=== PATIENT | male | born 1960 | race Caucasian/White ===

== ENCOUNTER 2016-07-25 11:13 | Emergency (ER) | payer MEDICAID ==
[~2016-07-25] VITALS: Ht 185.4 cm; Wt 116.3 kg
[~2016-07-25 11:13] MED LIST: ACID1GRA2 PO; ALPR-475 PO; ALPR1TAB2 PO; AMLO5TAB2 PO; AMOX1TAB12 PO; AMOX1TAB64 PO; ASPI-770 PO; ASPI325T4 PO; BUDE10.2 INH; BUPR75TA5 PO; CLON-365 PO; DICY10CA53 PO; ENOX120S5 SQ; HYDR-3138 PO; HYDR-3342 PO; HYDR25TA6 PO; LEVO750T26 PO; LISI2.5T PO; LISI40TA PO; LISI5TAB7 PO; LORA-445 PO; METO-95 PO; METO-99 PO; METO200T3 PO; METR500T4 PO; MULT-26 PO; MULT-412 PO; OMEP-110 PO; OMEP20CA9 PO; ONDA-39 PO; ONDA4TAB7 PO; OXYC10TA32 PO; OXYC10TA6 PO; OXYC20TA42 PO; OXYC5CAP4 PO; OXYC5TAB3 PO; POLY17PO5 PO; PRED10TA PO; PRED20TA PO; PRED5TAB PO; QUET50TA PO; QUET50TA5 PO; RIVA20TA PO; SENN1TAB7 PO; SERT100T PO; SERT50TA PO; SIME80TA PO; TEMA30CA PO; TRAM-28 PO; TRAM50TA2 PO; TRIA10.8 IH; UNKNOWN BP MED; VANC125C2 PO; VENL150C6 PO; WARF10TA6 PO
[2016-07-25 11:38] VITALS: BP 130/87
[2016-07-25] MEDS ORDERED: OXYcodone/APAP 5/325MG TABLET ONE (12:18)
[2016-07-25] MEDS ORDERED: IBUPROFEN 200 MG TABLET ONE (12:19)
[2016-07-25] MEDS ORDERED: OXYcodone/APAP 5/325MG TABLET PO ONE (12:30)
[2016-07-25] MEDS ORDERED: IBUPROFEN 200 MG TABLET PO ONE (12:30)
[2016-07-25] MEDS ORDERED: ALBU8.5H3 PO (13:37)
[2016-07-25] MEDS ORDERED: ONDA4TAB10 PO (13:45)
[2016-07-25] MEDS ORDERED: L.AC1CAP6 PO (13:45)
[2016-07-25] MEDS ORDERED: DULO30CA43 PO (13:45)
[2016-07-25] MEDS ORDERED: OXCA150T PO (13:45)
[2016-07-25] MEDS ORDERED: CLON-365 PO (13:45)
== END 2016-07-25 13:56 | disposition home or self-care (01) ==
LOC: ED 13:11
DX: M17.12 Unilateral primary osteoarthritis, left knee (principal); G89.11 Acute pain due to trauma; M25.562 Pain in left knee; I10 Essential (primary) hypertension; E11.9 Type 2 diabetes mellitus without complications; X58.XXXA Exposure to other specified factors, initial encounter; Y93.89 Activity, other specified; Y99.8 Other external cause status; Y92.009 Unspecified place in unspecified non-institutional (private) residence as the place of occurrence of the external cause
CPT/HCPCS: 29505; 93005

== ENCOUNTER 2016-08-01 12:47 | Inpatient (IN) | payer MEDICAID ==
[~2016-08-01] VITALS: Ht 185.4 cm; Wt 114.8 kg
[~2016-08-01 12:47] MED LIST changes: +ALBU8.5H3 PO; +DULO30CA43 PO; +L.AC1CAP6 PO; +ONDA4TAB10 PO; +OXCA150T PO
[2016-08-01] MEDS ORDERED: ONDANSETRON 2MG/ML, 2ML ONE (13:37)
[2016-08-01] MEDS ORDERED: MORPHINE SULFATE 4 MG/ML, 1ML ONE (13:37)
[2016-08-01] MEDS ORDERED: ASPIRIN 81 MG TABLET CHEW ONE (13:37)
[2016-08-01] MEDS ORDERED: LORazepam 2 MG/ML, 1ML ONE (13:39)
[2016-08-01 14:57] LABS: ASPARTATE AMINO TRANSFERASE 37 U/L (15-37); BLOOD UREA NITROGEN 18 mg/dL (7-18)
[2016-08-01 15:07] LABS: IS PT STATUS REG ER OR PRE ER? YES
[2016-08-01] MEDS ORDERED: OXYC15TA PO (15:47)
[2016-08-01] MEDS ORDERED: TIOT18CA INH (15:47)
[2016-08-01 17:47] VITALS: BP 140/87
[2016-08-01] MEDS ORDERED: RIVA20TA PO (18:31)
[2016-08-01] MEDS ORDERED: LABETALOL 5MG/ML, 20ML IVPush PRN (20:30)
[2016-08-01] MEDS ORDERED: ONDANSETRON ODT 4 MG PO PRN (20:30)
[2016-08-01] MEDS ORDERED: BISACODYL 10 MG SUPP PR PRN (20:30)
[2016-08-01] MEDS ORDERED: DOCUSATE 100 MG CAPSULE PO PRN (20:30)
[2016-08-01] MEDS ORDERED: TRAZODONE 50MG TABLET PO PRN (20:30)
[2016-08-01] MEDS ORDERED: ACETAMINOPHEN 325 MG TABLET PO PRN (20:30)
[2016-08-01] MEDS ORDERED: POLYETHYLENE GLYCOL 17 GM PACKET PO PRN (20:30)
[2016-08-01 20:51] VITALS: BP 137/88
[2016-08-01] MEDS: IPRATROPIUM 0.5 MG/2.5 ML INHA NPPB SCH (21:30)
[2016-08-01] MEDS ORDERED: ALBUTEROL SULFATE 2.5 MG/3 ML NPPB SCH (21:30)
[2016-08-01] MEDS: ALBUTEROL SULFATE 2.5 MG/3 ML NPPB SCH (21:30)
[2016-08-01] MEDS: ASPIRIN 325 MG TABLET PO SCH (22:21)
[2016-08-01] MEDS: SODIUM CHLORIDE 0.9% 1,000 ML IV SCH (22:21)
[2016-08-01] MEDS: OXCARBAZEPINE 150 MG TABLET PO SCH (22:22)
[2016-08-01] MEDS: ATORVASTATIN 80 MG TABLET PO SCH (22:22)
[2016-08-01] MEDS: ALPRazolam 1MG TABLET PO SCH (22:22)
[2016-08-01 22:29] LABS: IS PT STATUS REG ER OR PRE ER? NO
[2016-08-01] MEDS: MORPHINE SULFATE 4 MG/ML, 1ML IVPush PRN (23:33)
[2016-08-02] MEDS ORDERED: TEMAZEPAM 30 MG CAPSULE PO ONE
[2016-08-02 02:45] VITALS: BP 128/88
[2016-08-02] MEDS: ALBUTEROL SULFATE 2.5 MG/3 ML NPPB SCH ×3 (03:30→21:30)
[2016-08-02] MEDS: IPRATROPIUM 0.5 MG/2.5 ML INHA NPPB SCH ×4 (03:30→21:30)
[2016-08-02] MEDS: MORPHINE SULFATE 4 MG/ML, 1ML IVPush PRN ×5 (03:38→21:54)
[2016-08-02 03:47] LABS: BLOOD UREA NITROGEN 27 mg/dL (7-18)
[2016-08-02 03:53] LABS: ASPARTATE AMINO TRANSFERASE 45 U/L (15-37)
[2016-08-02 03:55] LABS: IS PT STATUS REG ER OR PRE ER? NO
[2016-08-02] MEDS: ALPRazolam 1MG TABLET PO SCH ×4 (06:08→21:54)
[2016-08-02] MEDS: ASPIRIN 325 MG TABLET PO SCH (06:08)
[2016-08-02] MEDS: RIVAROXABAN 20 MG TABLET PO SCH (07:52)
[2016-08-02] MEDS: DULOXETINE 30 MG CAPSULE.DR PO SCH (07:52)
[2016-08-02] MEDS: OXCARBAZEPINE 150 MG TABLET PO SCH ×2 (07:52→21:54)
[2016-08-02] MEDS: FLUTICASONE/VILANTEROL 200-25MCG/INH INH SCH (07:53)
[2016-08-02 08:03] VITALS: BP 110/71
[2016-08-02] MEDS ORDERED: REGADENOSON 0.4 MG/5 ML SYRINGE ONE (08:44)
[2016-08-02] MEDS: SODIUM CHLORIDE 0.9% 1,000 ML IV SCH (11:19)
[2016-08-02 11:42] LABS: ASPARTATE AMINO TRANSFERASE 35 U/L (15-37); BLOOD UREA NITROGEN 18 mg/dL (7-18)
[2016-08-02 11:45] LABS: IS PT STATUS REG ER OR PRE ER? NO
[2016-08-02 13:51] VITALS: BP 114/72
[2016-08-02] MEDS ORDERED: KETOROLAC 30 MG/1 ML IVPush PRN (14:00)
[2016-08-02] MEDS: METHOCARBAMOL 500 MG TABLET PO SCH ×2 (16:24→21:54)
[2016-08-02 19:30] VITALS: BP 117/78
[2016-08-02] MEDS: ATORVASTATIN 80 MG TABLET PO SCH (21:53)
[2016-08-03 01:30] VITALS: BP 124/80
[2016-08-03] MEDS: MORPHINE SULFATE 4 MG/ML, 1ML IVPush PRN ×2 (04:20→09:42)
[2016-08-03] MEDS: METHOCARBAMOL 500 MG TABLET PO SCH ×2 (05:57→10:55)
[2016-08-03] MEDS: ALPRazolam 1MG TABLET PO SCH ×2 (05:57→10:55)
[2016-08-03] MEDS: ASPIRIN 325 MG TABLET PO SCH (05:57)
[2016-08-03] MEDS ORDERED: ALBUTEROL SULFATE 2.5 MG/3 ML NPPB PRN (07:00)
[2016-08-03] MEDS ORDERED: IPRATROPIUM 0.5 MG/2.5 ML INHA NPPB SCH (07:00)
[2016-08-03] MEDS ORDERED: ALBUTEROL SULFATE 2.5 MG/3 ML NPPB SCH (07:00)
[2016-08-03 08:42] VITALS: BP 107/67
[2016-08-03] MEDS: OXCARBAZEPINE 150 MG TABLET PO SCH (09:41)
[2016-08-03] MEDS: RIVAROXABAN 20 MG TABLET PO SCH (09:41)
[2016-08-03] MEDS: FLUTICASONE/VILANTEROL 200-25MCG/INH INH SCH (09:41)
[2016-08-03] MEDS: DULOXETINE 30 MG CAPSULE.DR PO SCH (09:41)
[2016-08-03] MEDS ORDERED: METH500T7 PO (11:48)
== END 2016-08-03 15:00 | disposition home or self-care (01) | DRG 206 ==
LOC: ED 12:47 → EDIP 15:16 → 5SO 16:39 → DCLOUNGE 08-03 14:37
PROVIDERS: ADMIT Internal Medicine; ATTEND Internal Medicine
DX: M94.0 Chondrocostal junction syndrome [Tietze] (principal); F42.9 Obsessive-compulsive disorder, unspecified; E78.5 Hyperlipidemia, unspecified; F32.9 Major depressive disorder, single episode, unspecified; I10 Essential (primary) hypertension; I48.0 Paroxysmal atrial fibrillation; J44.9 Chronic obstructive pulmonary disease, unspecified; Z87.891 Personal history of nicotine dependence; Z86.718 Personal history of other venous thrombosis and embolism; Z86.711 Personal history of pulmonary embolism; Z91.010 Allergy to peanuts; F41.9 Anxiety disorder, unspecified; R06.4 Hyperventilation; Z86.19 Personal history of other infectious and parasitic diseases
CPT/HCPCS: 36415; 71010; 78452; 80053; 83690; 83735; 83880; 84439; 84443; 84484; 85025; 85379; 87324; 93005; 93017; 99285; J2785; J7613; A9502; C9898; J7030

== ENCOUNTER 2016-08-06 11:16 | Emergency (ER) | payer MEDICAID ==
[~2016-08-06] VITALS: Ht 185.4 cm; Wt 113.3 kg
[~2016-08-06 11:16] MED LIST changes: +METH500T7 PO; +OXYC15TA PO; +TIOT18CA INH
[2016-08-06] MEDS ORDERED: ONDA-39 PO (11:38)
[2016-08-06] MEDS ORDERED: ALBUTEROL/IPRATROPIUM 2.5MG/0.5MG, 3 ML NPPB ONE (12:00)
[2016-08-06] MEDS ORDERED: ALBUTEROL/IPRATROPIUM 2.5MG/0.5MG, 3 ML ONE (12:03)
[2016-08-06 12:23] LABS: BLOOD UREA NITROGEN 10 mg/dL (7-18)
[2016-08-06 12:30] LABS: IS PT STATUS REG ER OR PRE ER? YES
[2016-08-06] MEDS ORDERED: HYDROcodone/APAP 5/325 TABLET ONE (12:36)
[2016-08-06] MEDS ORDERED: KETOROLAC 30 MG/1 ML ONE (12:36)
[2016-08-06] MEDS ORDERED: HYDROcodone/APAP 10/325 MG TABLET ONE (12:45)
[2016-08-06 12:53] VITALS: BP 139/99
[2016-08-06] MEDS ORDERED: KETOROLAC 30 MG/1 ML IM ONE (13:00)
[2016-08-06] MEDS ORDERED: HYDROcodone/APAP 10/325 MG TABLET PO ONE (13:00)
== END 2016-08-06 13:32 | disposition home or self-care (01) ==
LOC: ED 11:45
DX: J44.1 Chronic obstructive pulmonary disease with (acute) exacerbation (principal); I50.9 Heart failure, unspecified; E11.9 Type 2 diabetes mellitus without complications; F10.20 Alcohol dependence, uncomplicated; F41.9 Anxiety disorder, unspecified; G20 Parkinson's disease; Z86.718 Personal history of other venous thrombosis and embolism; Z87.891 Personal history of nicotine dependence
CPT/HCPCS: 36415; 71010; 80048; 82040; 83880; 84484; 85025; 93005; 96372; 99285; J1885; J7512; J7620

== ENCOUNTER 2016-08-31 11:28 | Emergency (ER) | payer MEDICAID ==
[~2016-08-31] VITALS: Ht 185.4 cm; Wt 116.3 kg
[2016-08-31] MEDS ORDERED: ONDANSETRON 2MG/ML, 2ML IVPush ONE (12:30)
[2016-08-31] MEDS ORDERED: SODIUM CHLORIDE FLUSH 10ML SYR IVF ONE (12:30)
[2016-08-31] MEDS ORDERED: MORPHINE SULFATE 4 MG/ML, 1ML IVPush PRN (12:30)
[2016-08-31] MEDS ORDERED: ONDANSETRON 2MG/ML, 2ML ONE (12:36)
[2016-08-31] MEDS ORDERED: MORPHINE SULFATE 4 MG/ML, 1ML ONE (12:36)
[2016-08-31 12:44] VITALS: BP 131/90
== END 2016-08-31 15:01 | disposition home or self-care (01) ==
LOC: ED 13:21
DX: S13.4XXA Sprain of ligaments of cervical spine, initial encounter (principal); S00.93XA Contusion of unspecified part of head, initial encounter; S23.3XXA Sprain of ligaments of thoracic spine, initial encounter; I10 Essential (primary) hypertension; G20 Parkinson's disease; A04.7 Enterocolitis due to Clostridium difficile; W10.9XXA Fall (on) (from) unspecified stairs and steps, initial encounter; Y93.89 Activity, other specified; Y99.8 Other external cause status; Y92.89 Other specified places as the place of occurrence of the external cause
CPT/HCPCS: 70450; 71010; 72072; 72125; 96374; 96375; 99284; J2405

== ENCOUNTER 2016-09-07 21:21 | Emergency (ER) | payer MEDICAID ==
[~2016-09-07] VITALS: Ht 185.4 cm; Wt 115.2 kg
[2016-09-07] MEDS ORDERED: HYDR-3342 PO (21:49)
[2016-09-07] MEDS ORDERED: LISI-170 PO (21:49)
[2016-09-07] MEDS ORDERED: METO50TA82 PO (21:49)
[2016-09-07] MEDS ORDERED: FLUO20CA19 PO (21:49)
[2016-09-07] MEDS ORDERED: TRAZ50TA18 PO (21:49)
[2016-09-07] MEDS ORDERED: SODIUM CHLORIDE 0.9% 1,000ML IVBOLUS ONE ×2 (22:00→23:30)
[2016-09-07] MEDS ORDERED: ASPIRIN 81 MG TABLET CHEW PO ONE (22:00)
[2016-09-07 22:21] LABS: BLOOD UREA NITROGEN 17 mg/dL (7-18)
[2016-09-07 22:27] LABS: IS PT STATUS REG ER OR PRE ER? YES
[2016-09-07] MEDS ORDERED: MORPHINE SULFATE 4 MG/ML, 1ML ONE (22:54)
[2016-09-07] MEDS ORDERED: MORPHINE SULFATE 4 MG/ML, 1ML IVPush ONE (23:00)
[2016-09-07] MEDS ORDERED: LORazepam 2 MG/ML, 1ML ONE (23:21)
[2016-09-07] MEDS ORDERED: LORazepam 2 MG/ML, 1ML IVPush ONE (23:30)
[2016-09-08 00:36] VITALS: BP 137/93
== END 2016-09-08 00:38 | disposition home or self-care (01) ==
LOC: ED 21:43
DX: R07.89 Other chest pain (principal); A04.7 Enterocolitis due to Clostridium difficile; E11.9 Type 2 diabetes mellitus without complications; I48.91 Unspecified atrial fibrillation; J44.0 Chronic obstructive pulmonary disease with (acute) lower respiratory infection; K70.9 Alcoholic liver disease, unspecified; M19.90 Unspecified osteoarthritis, unspecified site; I11.0 Hypertensive heart disease with heart failure; I50.9 Heart failure, unspecified
CPT/HCPCS: 36415; 71010; 80048; 80307; 82040; 83735; 84443; 84484; 85025; 85379; 93005; 96361; 96374; 96375; 99285; J2060; J7030

== ENCOUNTER 2016-09-10 12:18 | Inpatient (IN) | payer MEDICAID ==
[~2016-09-10] VITALS: Ht 185.4 cm; Wt 112.1 kg
[~2016-09-10 12:18] MED LIST changes: +FLUO20CA19 PO; +LISI-170 PO; +METO50TA82 PO; +TRAZ50TA18 PO
[2016-09-10] MEDS ORDERED: SODIUM CHLORIDE 0.9% 1,000ML IVBOLUS ONE (13:00)
[2016-09-10] MEDS ORDERED: SODIUM CHLORIDE FLUSH 10ML SYR IVF ONE (13:00)
[2016-09-10] MEDS ORDERED: LORazepam 2 MG/ML, 1ML IVPush ONE (13:00)
[2016-09-10] MEDS ORDERED: LORazepam 2 MG/ML, 1ML ONE (13:25)
[2016-09-10 13:32] LABS: BLOOD UREA NITROGEN 6 mg/dL (7-18)
[2016-09-10 13:37] LABS: IS PT STATUS REG ER OR PRE ER? YES
[2016-09-10] MEDS ORDERED: POTASSIUM CHLORIDE 40 MEQ in SODIUM CHLORIDE 0.9% 500 ML IV ONE (14:30)
[2016-09-10] MEDS ORDERED: LISINOPRIL 20 MG TABLET PO ONE (15:30)
[2016-09-10] MEDS ORDERED: RIVAROXABAN 20 MG TABLET PO ONE (15:30)
[2016-09-10] MEDS ORDERED: METOPROLOL TARTRATE 50 MG TABLET PO ONE (15:30)
[2016-09-10] MEDS ORDERED: LISINOPRIL 20 MG TABLET ONE (16:07)
[2016-09-10] MEDS ORDERED: METOPROLOL TARTRATE 50 MG TABLET ONE (16:07)
[2016-09-10] MEDS ORDERED: OXYGEN (16:58)
[2016-09-10] MEDS: ALBUTEROL SULFATE 2.5 MG/3 ML NPPB SCH ×2 (17:00→23:00)
[2016-09-10] MEDS ORDERED: MAGNESIUM SULFATE PMX 2GM/50ML 50 ML IV ONE (17:00)
[2016-09-10] MEDS ORDERED: POTASSIUM CHLORIDE 20 MEQ TAB.ER.PRT PO ONE (17:00)
[2016-09-10] MEDS ORDERED: ONDANSETRON ODT 4 MG PO PRN (17:30)
[2016-09-10] MEDS ORDERED: POLYETHYLENE GLYCOL 17 GM PACKET PO PRN (17:30)
[2016-09-10] MEDS ORDERED: ONDANSETRON 2MG/ML, 2ML IVPush PRN (17:30)
[2016-09-10] MEDS ORDERED: BISACODYL 10 MG SUPP PR PRN (17:30)
[2016-09-10] MEDS ORDERED: DOCUSATE 100 MG CAPSULE PO PRN (17:30)
[2016-09-10 18:29] VITALS: BP 144/94
[2016-09-10 20:38] LABS: IS PT STATUS REG ER OR PRE ER? NO
[2016-09-10] MEDS: FLUTICASONE/VILANTEROL 200-25MCG/INH INH SCH (21:00)
[2016-09-10] MEDS: TRAZODONE 50MG TABLET PO PRN (21:42)
[2016-09-10] MEDS: METHOCARBAMOL 500 MG TABLET PO SCH (21:42)
[2016-09-10] MEDS: ALPRazolam 1MG TABLET PO SCH (21:42)
[2016-09-10] MEDS: TEMAZEPAM 30 MG CAPSULE PO SCH (21:42)
[2016-09-10] MEDS: FLUOXETINE 20 MG CAPSULE PO SCH (21:46)
[2016-09-10] MEDS: OXYcodone IR 5MG TABLET PO PRN (22:01)
[2016-09-11 02:22] VITALS: BP 102/64
[2016-09-11 02:28] LABS: BLOOD UREA NITROGEN 8 mg/dL (7-18)
[2016-09-11 02:33] LABS: IS PT STATUS REG ER OR PRE ER? NO
[2016-09-11] MEDS: METHOCARBAMOL 500 MG TABLET PO SCH ×4 (06:00→20:09)
[2016-09-11] MEDS: FLUTICASONE/VILANTEROL 200-25MCG/INH INH SCH (08:20)
[2016-09-11 08:21] VITALS: BP 105/68
[2016-09-11] MEDS: METOPROLOL TARTRATE 50 MG TABLET PO SCH (08:21)
[2016-09-11] MEDS: LISINOPRIL 20 MG TABLET PO SCH (08:21)
[2016-09-11] MEDS: FLUOXETINE 20 MG CAPSULE PO SCH ×3 (08:22→20:09)
[2016-09-11] MEDS: DULOXETINE 30 MG CAPSULE.DR PO SCH (08:22)
[2016-09-11] MEDS: RIVAROXABAN 20 MG TABLET PO SCH (08:22)
[2016-09-11] MEDS: OXYcodone IR 5MG TABLET PO PRN ×2 (08:41→17:33)
[2016-09-11] MEDS: ALPRazolam 1MG TABLET PO SCH ×3 (08:41→20:09)
[2016-09-11] MEDS: ALBUTEROL SULFATE 2.5 MG/3 ML NPPB SCH ×4 (09:08→21:20)
[2016-09-11] MEDS ORDERED: MAGNESIUM SULFATE PMX 2GM/50ML 50 ML IV ONE (11:00)
[2016-09-11 15:50] VITALS: BP 101/65
[2016-09-11 18:45] VITALS: BP 113/75
[2016-09-11] MEDS: TRAZODONE 50MG TABLET PO PRN (20:10)
[2016-09-11] MEDS: TEMAZEPAM 30 MG CAPSULE PO SCH (20:10)
[2016-09-12 01:07] VITALS: BP 112/79
[2016-09-12] MEDS: OXYcodone IR 5MG TABLET PO PRN ×3 (01:11→23:15)
[2016-09-12] MEDS: ALBUTEROL SULFATE 2.5 MG/3 ML NPPB SCH (05:00)
[2016-09-12] MEDS: METHOCARBAMOL 500 MG TABLET PO SCH ×4 (05:20→20:21)
[2016-09-12 09:15] VITALS: BP 115/78
[2016-09-12] MEDS: LISINOPRIL 20 MG TABLET PO SCH (09:16)
[2016-09-12] MEDS: METOPROLOL TARTRATE 50 MG TABLET PO SCH (09:16)
[2016-09-12] MEDS: FLUOXETINE 20 MG CAPSULE PO SCH ×3 (09:17→20:21)
[2016-09-12] MEDS: RIVAROXABAN 20 MG TABLET PO SCH (09:17)
[2016-09-12] MEDS: ALPRazolam 1MG TABLET PO SCH ×3 (09:17→20:20)
[2016-09-12] MEDS: FLUTICASONE/VILANTEROL 200-25MCG/INH INH SCH (09:17)
[2016-09-12] MEDS: DULOXETINE 30 MG CAPSULE.DR PO SCH (09:17)
[2016-09-12 16:10] VITALS: BP 104/67
[2016-09-12 16:26] VITALS: BP 112/71
[2016-09-12 18:25] VITALS: BP 109/73
[2016-09-12] MEDS: TEMAZEPAM 30 MG CAPSULE PO SCH (20:20)
[2016-09-12] MEDS: TRAZODONE 50MG TABLET PO PRN (20:20)
[2016-09-13 02:02] VITALS: BP 110/70
[2016-09-13] MEDS ORDERED: ALBUTEROL SULFATE 2.5 MG/3 ML NPPB PRN (05:00)
[2016-09-13] MEDS: METHOCARBAMOL 500 MG TABLET PO SCH ×2 (06:00→11:14)
[2016-09-13 08:26] VITALS: BP 111/73
[2016-09-13] MEDS: LISINOPRIL 20 MG TABLET PO SCH ×2 (09:00→09:30)
[2016-09-13] MEDS: METOPROLOL TARTRATE 50 MG TABLET PO SCH (09:00)
[2016-09-13] MEDS: ALPRazolam 1MG TABLET PO SCH (09:30)
[2016-09-13] MEDS: FLUOXETINE 20 MG CAPSULE PO SCH (09:30)
[2016-09-13] MEDS: DULOXETINE 30 MG CAPSULE.DR PO SCH (09:30)
[2016-09-13] MEDS: FLUTICASONE/VILANTEROL 200-25MCG/INH INH SCH (09:30)
[2016-09-13] MEDS: RIVAROXABAN 20 MG TABLET PO SCH (09:30)
[2016-09-13] MEDS: OXYcodone IR 5MG TABLET PO PRN (09:31)
[2016-09-13 15:16] VITALS: BP 106/70
== END 2016-09-13 16:20 | disposition home or self-care (01) | DRG 641 ==
LOC: ED 12:43 → EDIP 16:09 → 4EST 18:02
PROVIDERS: ADMIT Internal Medicine; ATTEND Internal Medicine
DX: R62.7 Adult failure to thrive (principal); J96.11 Chronic respiratory failure with hypoxia; F33.9 Major depressive disorder, recurrent, unspecified; F13.20 Sedative, hypnotic or anxiolytic dependence, uncomplicated; R07.89 Other chest pain; I48.91 Unspecified atrial fibrillation; E78.5 Hyperlipidemia, unspecified; I10 Essential (primary) hypertension; E87.6 Hypokalemia; F41.1 Generalized anxiety disorder; I11.0 Hypertensive heart disease with heart failure; Z91.010 Allergy to peanuts; I50.9 Heart failure, unspecified; Z86.711 Personal history of pulmonary embolism; Z86.718 Personal history of other venous thrombosis and embolism; Z79.01 Long term (current) use of anticoagulants; Z99.81 Dependence on supplemental oxygen; Z87.891 Personal history of nicotine dependence; Z91.14 Patient's other noncompliance with medication regimen; Z90.49 Acquired absence of other specified parts of digestive tract; Z79.899 Other long term (current) drug therapy; J44.9 Chronic obstructive pulmonary disease, unspecified
CPT/HCPCS: 36415; 71010; 80048; 82040; 83735; 83880; 84484; 85025; 93005; 96365; 96375; J3480; Q0162; J2060; J3475; J7040

== ENCOUNTER 2016-12-05 18:55 | Inpatient (IN) | payer MEDICAID ==
[~2016-12-05] VITALS: Ht 185.4 cm; Wt 121.1 kg
[~2016-12-05 18:55] MED LIST changes: -ACID1GRA2 PO; +ACID1GRA3 PO; -ALBU8.5H3 PO; +ALBU8.5H8 PO; +ASPI325T17 PO; -ASPI325T4 PO; -HYDR-3138 PO; +HYDR-3237 PO; -METO200T3 PO; +METO200T5 PO; -METR500T4 PO; +METR500T8 PO; -ONDA-39 PO; +ONDA4TAB12 PO; -OXYC10TA32 PO; +OXYC10TA47 PO; +OXYC5CAP2 PO; -OXYC5CAP4 PO; +OXYGEN; -TRAM-28 PO; +TRAM-47 PO
[2016-12-05] MEDS ORDERED: ASPIRIN 81 MG TABLET CHEW PO ONE (19:30)
[2016-12-05] MEDS ORDERED: SODIUM CHLORIDE FLUSH 10ML SYR IVF ONE ×2 (19:30→20:00)
[2016-12-05 19:41] LABS: HEMATOCRIT 50.6 % (39.2-51.8); WHITE BLOOD COUNT 14.9 x10^3/uL (3.4-10)
[2016-12-05] MEDS ORDERED: BACL20TA PO (19:50)
[2016-12-05] MEDS ORDERED: ATOR40TA78 PO (19:50)
[2016-12-05 19:51] LABS: ASPARTATE AMINO TRANSFERASE 32 U/L (15-37); BLOOD UREA NITROGEN 32 mg/dL (7-18)
[2016-12-05] MEDS ORDERED: ONDANSETRON 2MG/ML, 2ML IVPush ONE (20:00)
[2016-12-05] MEDS ORDERED: SODIUM CHLORIDE 0.9% 1,000ML IVBOLUS ONE ×2 (20:00→23:00)
[2016-12-05] MEDS ORDERED: ALBUTEROL/IPRATROPIUM 2.5MG/0.5MG, 3 ML NPPB ONE (20:00)
[2016-12-05 20:01] LABS: IS PT STATUS REG ER OR PRE ER? YES
[2016-12-05] MEDS ORDERED: ALBUTEROL/IPRATROPIUM 2.5MG/0.5MG, 3 ML ONE (20:04)
[2016-12-05] MEDS ORDERED: MORPHINE SULFATE 4 MG/ML, 1ML ONE ×2 (21:01→21:40)
[2016-12-05] MEDS ORDERED: ONDANSETRON 2MG/ML, 2ML ONE (21:01)
[2016-12-05] MEDS ORDERED: ASPIRIN 81 MG TABLET CHEW ONE (21:01)
[2016-12-05] MEDS: MORPHINE SULFATE 4 MG/ML, 1ML IVPush PRN ×2 (21:05→21:52)
[2016-12-05] MEDS ORDERED: PIPERACILLIN/TAZO/PMX 3.375GM 50 ML IVPB ONE (21:30)
[2016-12-05] MEDS ORDERED: VANCOMYCIN PER PHARMACY MC ONE (21:30)
[2016-12-05] MEDS ORDERED: OMNIPAQUE 350 MG/ML, 100ML BOTTLE ONE (21:33)
[2016-12-05] MEDS ORDERED: PIPERACILLIN/TAZO/PMX 3.375GM 50 ML ONE (21:40)
[2016-12-05] MEDS ORDERED: VANCOMYCIN 1,900 MG in SODIUM CHLORIDE 0.9% 250 ML IV ONE (22:00)
[2016-12-05] MEDS ORDERED: NS + 20MEQ KCL 1,000 ML IV SCH (23:35)
[2016-12-06] MEDS ORDERED: ONDANSETRON 2MG/ML, 2ML IVPush PRN
[2016-12-06] MEDS ORDERED: POLYETHYLENE GLYCOL 17 GM PACKET PO PRN
[2016-12-06] MEDS ORDERED: TEMPLATE NON-FORMULARY MED. (Albuterol Sulfate (Proair Hfa) 2 PUFF) PO SCH
[2016-12-06] MEDS ORDERED: DOCUSATE 100 MG CAPSULE PO PRN
[2016-12-06] MEDS ORDERED: ACETAMINOPHEN 325 MG TABLET PO PRN
[2016-12-06 00:15] VITALS: BP 101/63
[2016-12-06] MEDS: BACLOFEN 10 MG TABLET PO SCH ×2 (00:30→10:07)
[2016-12-06] MEDS: morphine SULFATE 10 MG/ML, 1ML IVPush PRN ×4 (01:22→19:47)
[2016-12-06] MEDS: ALPRazolam 1MG TABLET PO SCH ×5 (02:11→21:00)
[2016-12-06] MEDS: METHOCARBAMOL 500 MG TABLET PO SCH ×5 (02:11→22:18)
[2016-12-06 03:25] VITALS: BP 121/76
[2016-12-06 05:16] LABS: HEMATOCRIT 42.4 % (39.2-51.8); HEMOGLOBIN 14.4 g/dL (13.7-18.0); WHITE BLOOD COUNT 9.4 x10^3/uL (3.4-10)
[2016-12-06 05:41] LABS: ASPARTATE AMINO TRANSFERASE 21 U/L (15-37); BLOOD UREA NITROGEN 27 mg/dL (7-18)
[2016-12-06 08:58] VITALS: BP 112/79
[2016-12-06] MEDS: DULOXETINE 30 MG CAPSULE.DR PO SCH (10:07)
[2016-12-06] MEDS: SENNA/DOCUSATE TABLET PO SCH (10:08)
[2016-12-06] MEDS: RIVAROXABAN 20 MG TABLET PO SCH (10:08)
[2016-12-06] MEDS: FLUOXETINE 20 MG CAPSULE PO SCH ×3 (10:08→22:17)
[2016-12-06] MEDS: METOPROLOL TARTRATE 50 MG TABLET PO SCH (10:08)
[2016-12-06] MEDS: TEMPLATE NON-FORMULARY MED. (Budesonide/Formoterol Fumarate (Symbicort 160-4.5 Mcg Inhaler INH SCH ×3 (10:10→21:00)
[2016-12-06] MEDS: PANTOPRAZOLE 40 MG IV IVPush SCH ×2 (11:19→22:25)
[2016-12-06] MEDS: OXYcodone IR 5MG TABLET PO PRN ×2 (11:20→15:56)
[2016-12-06 12:49] VITALS: BP 91/58
[2016-12-06] MEDS: ATORVASTATIN 40 MG TABLET PO SCH ×2 (21:00)
[2016-12-06 21:18] VITALS: BP 107/72
[2016-12-06] MEDS: TEMAZEPAM 30 MG CAPSULE PO SCH ×2 (22:25)
[2016-12-07] MEDS: OXYcodone IR 5MG TABLET PO PRN ×4 (00:29→22:35)
[2016-12-07 03:46] VITALS: BP 121/85
[2016-12-07] MEDS: morphine SULFATE 10 MG/ML, 1ML IVPush PRN ×3 (04:08→16:48)
[2016-12-07] MEDS: ALBUTEROL SULFATE 2.5 MG/3 ML NPPB PRN (04:52)
[2016-12-07] MEDS: ALPRazolam 1MG TABLET PO SCH ×4 (05:22→20:59)
[2016-12-07] MEDS: METHOCARBAMOL 500 MG TABLET PO SCH ×4 (05:22→20:59)
[2016-12-07 06:28] LABS: BLOOD UREA NITROGEN 11 mg/dL (7-18)
[2016-12-07 07:08] VITALS: BP 116/73
[2016-12-07] MEDS: TEMPLATE NON-FORMULARY MED. (Budesonide/Formoterol Fumarate (Symbicort 160-4.5 Mcg Inhaler INH SCH ×2 (09:00→21:00)
[2016-12-07] MEDS: OMEGA-3/FISH OIL CAPSULE PO SCH (09:03)
[2016-12-07] MEDS: METOPROLOL TARTRATE 50 MG TABLET PO SCH (09:04)
[2016-12-07] MEDS: BACLOFEN 10 MG TABLET PO SCH (09:04)
[2016-12-07] MEDS: FLUOXETINE 20 MG CAPSULE PO SCH ×3 (09:04→20:59)
[2016-12-07] MEDS: RIVAROXABAN 20 MG TABLET PO SCH (09:04)
[2016-12-07] MEDS: SENNA/DOCUSATE TABLET PO SCH (09:04)
[2016-12-07] MEDS: DULOXETINE 30 MG CAPSULE.DR PO SCH (09:05)
[2016-12-07] MEDS ORDERED: MAALOX/HYOSCYAMINE/LIDOCAINE 45 ML BTL PO ONE (09:30)
[2016-12-07 09:36] LABS: IS PT STATUS REG ER OR PRE ER? NO
[2016-12-07] MEDS: PANTOPRAZOLE 40 MG IV IVPush SCH ×2 (10:10→20:59)
[2016-12-07 13:41] VITALS: BP 107/74
[2016-12-07 20:00] VITALS: BP 119/81
[2016-12-07] MEDS: TEMAZEPAM 30 MG CAPSULE PO SCH (20:59)
[2016-12-07] MEDS: ATORVASTATIN 40 MG TABLET PO SCH (20:59)
[2016-12-08] MEDS: morphine SULFATE 10 MG/ML, 1ML IVPush PRN ×4 (00:27→17:27)
[2016-12-08 01:55] VITALS: BP 112/69
[2016-12-08 05:11] LABS: BLOOD UREA NITROGEN 12 mg/dL (7-18)
[2016-12-08 05:15] LABS: ASPARTATE AMINO TRANSFERASE 13 U/L (15-37)
[2016-12-08] MEDS: METHOCARBAMOL 500 MG TABLET PO SCH ×4 (05:22→22:00)
[2016-12-08] MEDS: ALPRazolam 1MG TABLET PO SCH ×3 (05:22→16:10)
[2016-12-08 08:04] VITALS: BP 123/81
[2016-12-08] MEDS: TEMPLATE NON-FORMULARY MED. (Budesonide/Formoterol Fumarate (Symbicort 160-4.5 Mcg Inhaler INH SCH ×2 (09:00→21:00)
[2016-12-08] MEDS: SENNA/DOCUSATE TABLET PO SCH (09:26)
[2016-12-08] MEDS: RIVAROXABAN 20 MG TABLET PO SCH (09:26)
[2016-12-08] MEDS: OMEGA-3/FISH OIL CAPSULE PO SCH (09:26)
[2016-12-08] MEDS: BACLOFEN 10 MG TABLET PO SCH (09:26)
[2016-12-08] MEDS: FLUOXETINE 20 MG CAPSULE PO SCH ×3 (09:26→22:00)
[2016-12-08] MEDS: OXYcodone IR 5MG TABLET PO PRN ×3 (09:26→22:01)
[2016-12-08] MEDS: DULOXETINE 30 MG CAPSULE.DR PO SCH (09:26)
[2016-12-08] MEDS: METOPROLOL TARTRATE 50 MG TABLET PO SCH (09:26)
[2016-12-08] MEDS ORDERED: MAALOX/HYOSCYAMINE/LIDOCAINE 45 ML BTL PO ONE (10:30)
[2016-12-08] MEDS: PANTOPRAZOLE 40 MG IV IVPush SCH (10:38)
[2016-12-08] MEDS: SUCRALFATE 1 GM/10 ML UDC PO SCH ×3 (12:11→21:59)
[2016-12-08 12:26] LABS: HEMATOCRIT 39.4 % (39.2-51.8); HEMOGLOBIN 13.3 g/dL (13.7-18.0); WHITE BLOOD COUNT 9.8 x10^3/uL (3.4-10)
[2016-12-08 12:38] LABS: BLOOD UREA NITROGEN 10 mg/dL (7-18)
[2016-12-08 15:17] VITALS: BP 129/80
[2016-12-08 20:00] VITALS: BP 116/76
[2016-12-08] MEDS: GABAPENTIN 100 MG CAPSULE PO SCH (21:30)
[2016-12-08] MEDS: ATORVASTATIN 40 MG TABLET PO SCH (22:00)
[2016-12-09] MEDS: ALBUTEROL SULFATE 2.5 MG/3 ML NPPB PRN ×2 (03:06→17:51)
[2016-12-09 03:16] VITALS: BP 125/79
[2016-12-09] MEDS: OXYcodone IR 5MG TABLET PO PRN ×2 (04:55→16:24)
[2016-12-09] MEDS: METHOCARBAMOL 500 MG TABLET PO SCH ×4 (04:55→20:30)
[2016-12-09 07:05] VITALS: BP 117/74
[2016-12-09] MEDS: SUCRALFATE 1 GM/10 ML UDC PO SCH ×4 (07:16→20:29)
[2016-12-09] MEDS: RIVAROXABAN 20 MG TABLET PO SCH (08:36)
[2016-12-09] MEDS: SENNA/DOCUSATE TABLET PO SCH (08:36)
[2016-12-09] MEDS: METOPROLOL TARTRATE 50 MG TABLET PO SCH (08:37)
[2016-12-09] MEDS: PANTOPRAZOLE 20MG TABLET PO SCH (08:37)
[2016-12-09] MEDS: GABAPENTIN 100 MG CAPSULE PO SCH ×3 (08:37→20:30)
[2016-12-09] MEDS: FLUOXETINE 20 MG CAPSULE PO SCH (08:37)
[2016-12-09] MEDS: BACLOFEN 10 MG TABLET PO SCH (08:37)
[2016-12-09] MEDS: TEMPLATE NON-FORMULARY MED. (Budesonide/Formoterol Fumarate (Symbicort 160-4.5 Mcg Inhaler INH SCH ×2 (08:38→20:31)
[2016-12-09] MEDS: OMEGA-3/FISH OIL CAPSULE PO SCH (08:42)
[2016-12-09 12:46] VITALS: BP 127/84
[2016-12-09 18:45] VITALS: BP 118/72
[2016-12-09 18:53] LABS: IS PT STATUS REG ER OR PRE ER? NO
[2016-12-09] MEDS: ATORVASTATIN 40 MG TABLET PO SCH (20:30)
[2016-12-09] MEDS: TRAZODONE 50MG TABLET PO PRN (20:35)
[2016-12-10] MEDS: OXYcodone IR 5MG TABLET PO PRN ×4 (01:06→21:18)
[2016-12-10 01:19] LABS: HEMATOCRIT 36.2 % (39.2-51.8); HEMOGLOBIN 12.4 g/dL (13.7-18.0); WHITE BLOOD COUNT 7.3 x10^3/uL (3.4-10)
[2016-12-10 01:22] LABS: BLOOD UREA NITROGEN 17 mg/dL (7-18)
[2016-12-10 01:24] LABS: ASPARTATE AMINO TRANSFERASE 25 U/L (15-37)
[2016-12-10 01:26] LABS: IS PT STATUS REG ER OR PRE ER? NO
[2016-12-10 02:22] VITALS: BP 134/79
[2016-12-10] MEDS: SUCRALFATE 1 GM/10 ML UDC PO SCH ×4 (06:39→20:09)
[2016-12-10] MEDS: METHOCARBAMOL 500 MG TABLET PO SCH ×4 (06:39→20:10)
[2016-12-10] MEDS: OMEGA-3/FISH OIL CAPSULE PO SCH (08:53)
[2016-12-10] MEDS: PANTOPRAZOLE 20MG TABLET PO SCH (08:53)
[2016-12-10] MEDS: FLUOXETINE 20 MG CAPSULE PO SCH (08:54)
[2016-12-10] MEDS: GABAPENTIN 100 MG CAPSULE PO SCH ×3 (08:54→20:09)
[2016-12-10] MEDS: METOPROLOL TARTRATE 50 MG TABLET PO SCH (08:54)
[2016-12-10] MEDS: RIVAROXABAN 20 MG TABLET PO SCH (08:54)
[2016-12-10] MEDS: SENNA/DOCUSATE TABLET PO SCH (08:54)
[2016-12-10] MEDS: BACLOFEN 10 MG TABLET PO SCH (08:55)
[2016-12-10] MEDS: TEMPLATE NON-FORMULARY MED. (Budesonide/Formoterol Fumarate (Symbicort 160-4.5 Mcg Inhaler INH SCH ×2 (08:57→21:00)
[2016-12-10 09:28] VITALS: BP 103/66
[2016-12-10 15:36] VITALS: BP 109/88
[2016-12-10] MEDS ORDERED: POLYETHYLENE GLYCOL 17 GM PACKET PO PRN (19:00)
[2016-12-10] MEDS ORDERED: ONDANSETRON 2MG/ML, 2ML IVPush PRN (19:00)
[2016-12-10] MEDS ORDERED: DOCUSATE 100 MG CAPSULE PO PRN (19:00)
[2016-12-10 19:49] VITALS: BP 118/75
[2016-12-10] MEDS: TRAZODONE 50MG TABLET PO PRN (20:09)
[2016-12-10] MEDS: ATORVASTATIN 40 MG TABLET PO SCH (20:09)
[2016-12-11 02:22] VITALS: BP 117/81
[2016-12-11] MEDS: METHOCARBAMOL 500 MG TABLET PO SCH ×4 (02:51→20:48)
[2016-12-11] MEDS: OXYcodone IR 5MG TABLET PO PRN ×3 (05:32→20:47)
[2016-12-11] MEDS: SUCRALFATE 1 GM/10 ML UDC PO SCH ×4 (07:35→20:47)
[2016-12-11 07:51] VITALS: BP 132/83
[2016-12-11] MEDS: RIVAROXABAN 20 MG TABLET PO SCH (08:14)
[2016-12-11] MEDS: METOPROLOL TARTRATE 50 MG TABLET PO SCH (08:15)
[2016-12-11] MEDS: SENNA/DOCUSATE TABLET PO SCH (08:15)
[2016-12-11] MEDS: FLUOXETINE 20 MG CAPSULE PO SCH (08:15)
[2016-12-11] MEDS: GABAPENTIN 100 MG CAPSULE PO SCH ×3 (08:15→20:48)
[2016-12-11] MEDS: OMEGA-3/FISH OIL CAPSULE PO SCH (08:15)
[2016-12-11] MEDS: TEMPLATE NON-FORMULARY MED. (Budesonide/Formoterol Fumarate (Symbicort 160-4.5 Mcg Inhaler INH SCH ×2 (08:16→20:48)
[2016-12-11] MEDS: BACLOFEN 10 MG TABLET PO SCH (08:16)
[2016-12-11] MEDS: PANTOPRAZOLE 20MG TABLET PO SCH (08:16)
[2016-12-11 15:59] VITALS: BP 161/95
[2016-12-11 19:20] VITALS: BP 123/82
[2016-12-11] MEDS: TRAZODONE 50MG TABLET PO PRN (20:47)
[2016-12-11] MEDS: ATORVASTATIN 40 MG TABLET PO SCH (20:47)
[2016-12-12 01:15] VITALS: BP 126/84
[2016-12-12] MEDS: SUCRALFATE 1 GM/10 ML UDC PO SCH ×4 (06:34→20:55)
[2016-12-12] MEDS: OXYcodone IR 5MG TABLET PO PRN ×3 (06:34→20:55)
[2016-12-12] MEDS: METHOCARBAMOL 500 MG TABLET PO SCH ×4 (06:34→20:56)
[2016-12-12 08:12] VITALS: BP 109/65
[2016-12-12 08:37] VITALS: BP 105/71
[2016-12-12] MEDS: RIVAROXABAN 20 MG TABLET PO SCH (08:43)
[2016-12-12] MEDS: FLUOXETINE 20 MG CAPSULE PO SCH (08:43)
[2016-12-12] MEDS: OMEGA-3/FISH OIL CAPSULE PO SCH (08:43)
[2016-12-12] MEDS: PANTOPRAZOLE 20MG TABLET PO SCH (08:43)
[2016-12-12] MEDS: SENNA/DOCUSATE TABLET PO SCH (08:43)
[2016-12-12] MEDS: GABAPENTIN 100 MG CAPSULE PO SCH ×3 (08:43→20:56)
[2016-12-12] MEDS: BACLOFEN 10 MG TABLET PO SCH (08:44)
[2016-12-12] MEDS: METOPROLOL TARTRATE 50 MG TABLET PO SCH (08:44)
[2016-12-12] MEDS: TEMPLATE NON-FORMULARY MED. (Budesonide/Formoterol Fumarate (Symbicort 160-4.5 Mcg Inhaler INH SCH ×2 (08:46→20:56)
[2016-12-12] MEDS ORDERED: OMEG1CAP6 PO (09:52)
[2016-12-12] MEDS ORDERED: GABA-826 PO (09:52)
[2016-12-12] MEDS ORDERED: SUCR1ORA5 PO (09:52)
[2016-12-12] MEDS ORDERED: FLUO20CA19 PO (09:52)
[2016-12-12 13:50] VITALS: BP 104/67
[2016-12-12] MEDS: ACETAMINOPHEN 325 MG TABLET PO PRN (16:39)
[2016-12-12 18:36] VITALS: BP 118/77
[2016-12-12] MEDS: TRAZODONE 50MG TABLET PO PRN (20:55)
[2016-12-12] MEDS: ATORVASTATIN 40 MG TABLET PO SCH (20:56)
[2016-12-13 01:57] VITALS: BP 115/77
[2016-12-13] MEDS: OXYcodone IR 5MG TABLET PO PRN ×3 (02:47→18:43)
[2016-12-13] MEDS: METHOCARBAMOL 500 MG TABLET PO SCH ×4 (06:44→21:29)
[2016-12-13] MEDS: SUCRALFATE 1 GM/10 ML UDC PO SCH ×4 (06:44→21:29)
[2016-12-13] MEDS: PANTOPRAZOLE 20MG TABLET PO SCH (07:40)
[2016-12-13 07:41] VITALS: BP 111/72
[2016-12-13] MEDS: OMEGA-3/FISH OIL CAPSULE PO SCH (09:10)
[2016-12-13] MEDS: RIVAROXABAN 20 MG TABLET PO SCH (09:10)
[2016-12-13] MEDS: GABAPENTIN 100 MG CAPSULE PO SCH (09:10)
[2016-12-13] MEDS: FLUOXETINE 20 MG CAPSULE PO SCH (09:10)
[2016-12-13] MEDS: BACLOFEN 10 MG TABLET PO SCH (09:10)
[2016-12-13] MEDS: METOPROLOL TARTRATE 50 MG TABLET PO SCH (09:10)
[2016-12-13] MEDS: SENNA/DOCUSATE TABLET PO SCH (09:10)
[2016-12-13] MEDS: TEMPLATE NON-FORMULARY MED. (Budesonide/Formoterol Fumarate (Symbicort 160-4.5 Mcg Inhaler INH SCH ×2 (09:11→21:00)
[2016-12-13] MEDS: ACETAMINOPHEN 325 MG TABLET PO PRN ×3 (10:47→21:36)
[2016-12-13 14:15] VITALS: BP 115/75
[2016-12-13] MEDS: GABAPENTIN 300 MG CAPSULE PO SCH ×2 (15:53→21:36)
[2016-12-13 19:11] VITALS: BP 125/86
[2016-12-13] MEDS: ATORVASTATIN 40 MG TABLET PO SCH (21:29)
[2016-12-14 00:45] VITALS: BP 116/66
[2016-12-14] MEDS: OXYcodone IR 5MG TABLET PO PRN ×3 (03:21→19:43)
[2016-12-14] MEDS: SUCRALFATE 1 GM/10 ML UDC PO SCH ×4 (06:17→19:43)
[2016-12-14] MEDS: METHOCARBAMOL 500 MG TABLET PO SCH (06:17)
[2016-12-14] MEDS: PANTOPRAZOLE 20MG TABLET PO SCH (06:17)
[2016-12-14 06:56] VITALS: BP 110/69
[2016-12-14] MEDS: TEMPLATE NON-FORMULARY MED. (Budesonide/Formoterol Fumarate (Symbicort 160-4.5 Mcg Inhaler INH SCH ×2 (09:29→19:43)
[2016-12-14] MEDS: METOPROLOL TARTRATE 50 MG TABLET PO SCH (09:30)
[2016-12-14] MEDS: BACLOFEN 10 MG TABLET PO SCH (09:30)
[2016-12-14] MEDS: GABAPENTIN 300 MG CAPSULE PO SCH ×3 (09:31→19:43)
[2016-12-14] MEDS: FLUOXETINE 20 MG CAPSULE PO SCH (09:32)
[2016-12-14] MEDS: SENNA/DOCUSATE TABLET PO SCH (09:32)
[2016-12-14] MEDS: RIVAROXABAN 20 MG TABLET PO SCH (09:32)
[2016-12-14 09:34] VITALS: BP 123/83
[2016-12-14] MEDS ORDERED: GABA-826 PO (11:11)
[2016-12-14] MEDS: OMEGA-3/FISH OIL CAPSULE PO SCH (11:15)
[2016-12-14] MEDS: ACETAMINOPHEN 325 MG TABLET PO PRN (11:16)
[2016-12-14 13:01] VITALS: BP 117/75
[2016-12-14 19:31] VITALS: BP 129/78
[2016-12-14] MEDS: ATORVASTATIN 40 MG TABLET PO SCH (19:43)
[2016-12-15 00:15] VITALS: BP 110/72
[2016-12-15] MEDS: ACETAMINOPHEN 325 MG TABLET PO PRN ×2 (04:47→12:55)
[2016-12-15] MEDS: OXYcodone IR 5MG TABLET PO PRN ×2 (04:47→12:55)
[2016-12-15] MEDS: PANTOPRAZOLE 20MG TABLET PO SCH (06:09)
[2016-12-15] MEDS: SUCRALFATE 1 GM/10 ML UDC PO SCH ×2 (06:09→10:42)
[2016-12-15 07:48] VITALS: BP 141/82
[2016-12-15] MEDS: GABAPENTIN 300 MG CAPSULE PO SCH (08:26)
[2016-12-15] MEDS: BACLOFEN 10 MG TABLET PO SCH (08:26)
[2016-12-15] MEDS: METOPROLOL TARTRATE 50 MG TABLET PO SCH (08:26)
[2016-12-15] MEDS: OMEGA-3/FISH OIL CAPSULE PO SCH (08:26)
[2016-12-15] MEDS: SENNA/DOCUSATE TABLET PO SCH (08:27)
[2016-12-15] MEDS: RIVAROXABAN 20 MG TABLET PO SCH (08:27)
[2016-12-15] MEDS: FLUOXETINE 20 MG CAPSULE PO SCH (08:27)
[2016-12-15] MEDS: TEMPLATE NON-FORMULARY MED. (Budesonide/Formoterol Fumarate (Symbicort 160-4.5 Mcg Inhaler INH SCH (08:28)
[2016-12-15 13:22] VITALS: BP 127/83
== END 2016-12-15 14:34 | disposition home or self-care (01) | DRG 871 ==
LOC: ED 20:09 → SUATTDRO 23:26 → EDIP 23:36 → 4NOR 23:50
PROVIDERS: ADMIT Family Medicine; ATTEND Family Medicine
DX: A41.9 Sepsis, unspecified organism (principal); K85.90 Acute pancreatitis without necrosis or infection, unspecified; F33.2 Major depressive disorder, recurrent severe without psychotic features; D68.59 Other primary thrombophilia; E44.1 Mild protein-calorie malnutrition; G20 Parkinson's disease; F13.20 Sedative, hypnotic or anxiolytic dependence, uncomplicated; I48.0 Paroxysmal atrial fibrillation; E86.0 Dehydration; I50.32 Chronic diastolic (congestive) heart failure; J44.1 Chronic obstructive pulmonary disease with (acute) exacerbation; I11.0 Hypertensive heart disease with heart failure; I25.10 Atherosclerotic heart disease of native coronary artery without angina pectoris; F10.10 Alcohol abuse, uncomplicated; K70.9 Alcoholic liver disease, unspecified; R65.20 Severe sepsis without septic shock; G89.29 Other chronic pain; E78.1 Pure hyperglyceridemia; E78.5 Hyperlipidemia, unspecified; F41.1 Generalized anxiety disorder; Z66 Do not resuscitate; K57.30 Diverticulosis of large intestine without perforation or abscess without bleeding; F42.9 Obsessive-compulsive disorder, unspecified; E10.9 Type 1 diabetes mellitus without complications; Z91.19 Patient's noncompliance with other medical treatment and regimen; Z87.891 Personal history of nicotine dependence; Z90.49 Acquired absence of other specified parts of digestive tract; Z86.711 Personal history of pulmonary embolism; Z83.3 Family history of diabetes mellitus; Z82.49 Family history of ischemic heart disease and other diseases of the circulatory system; Z79.899 Other long term (current) drug therapy; Z79.01 Long term (current) use of anticoagulants; Z79.4 Long term (current) use of insulin; Z81.1 Family history of alcohol abuse and dependence; Z86.19 Personal history of other infectious and parasitic diseases; Z86.718 Personal history of other venous thrombosis and embolism; I25.2 Old myocardial infarction; G47.30 Sleep apnea, unspecified; Z87.01 Personal history of pneumonia (recurrent); Z68.35 Body mass index [BMI] 35.0-35.9, adult
CPT/HCPCS: 36415; 71010; 71275; 74177; 80048; 80053; 80061; 81003; 82040; 82330; 82962; 83605; 83690; 83735; 83880; 84145; 84484; 85025; 85610; 85651; 85730; 86677; 87040; 93005; 93306; 94640; 96361; 96365; 96367; 96375; 96376; J2405; J2543; J3370; J3480; J7613; J7620; Q9967; C9113; J2270; J7030; J7050

== ENCOUNTER 2016-12-18 21:30 | Emergency (ER) | payer MEDICAID ==
[~2016-12-18] VITALS: Ht 185.4 cm; Wt 118.0 kg
[~2016-12-18 21:30] MED LIST changes: +ATOR40TA78 PO; +BACL20TA PO; +GABA-826 PO; +OMEG1CAP6 PO; +SUCR1ORA5 PO
[2016-12-18] MEDS ORDERED: ONDANSETRON 2MG/ML, 2ML ONE (22:00)
[2016-12-18] MEDS ORDERED: SODIUM CHLORIDE FLUSH 10ML SYR IVF ONE (22:00)
[2016-12-18] MEDS ORDERED: LORazepam 2 MG/ML, 1ML IVPush ONE (22:00)
[2016-12-18] MEDS ORDERED: ONDANSETRON 2MG/ML, 2ML IVPush ONE (22:00)
[2016-12-18] MEDS ORDERED: LORazepam 2 MG/ML, 1ML ONE (22:00)
[2016-12-18 22:07] LABS: HEMATOCRIT 43.9 % (39.2-51.8); HEMOGLOBIN 15.2 g/dL (13.7-18.0); WHITE BLOOD COUNT 9.9 x10^3/uL (3.4-10)
[2016-12-18 22:15] LABS: ASPARTATE AMINO TRANSFERASE 18 U/L (15-37); BLOOD UREA NITROGEN 12 mg/dL (7-18)
[2016-12-18 23:20] VITALS: BP 148/83
== END 2016-12-18 23:22 | disposition home or self-care (01) ==
LOC: ED 22:33
DX: F41.1 Generalized anxiety disorder (principal); E78.5 Hyperlipidemia, unspecified; E11.9 Type 2 diabetes mellitus without complications; I48.91 Unspecified atrial fibrillation; G20 Parkinson's disease; J44.9 Chronic obstructive pulmonary disease, unspecified; F32.9 Major depressive disorder, single episode, unspecified; I50.9 Heart failure, unspecified; I11.0 Hypertensive heart disease with heart failure; Z87.891 Personal history of nicotine dependence
CPT/HCPCS: 36415; 74176; 80053; 83690; 85025; 96374; 96375; 99285; J2060; J2405

== ENCOUNTER 2016-12-24 17:26 | Emergency (ER) | payer MEDICAID ==
[~2016-12-24] VITALS: Ht 182.9 cm; Wt 165.3 kg
[2016-12-24] MEDS ORDERED: SODIUM CHLORIDE 0.9% 1,000 ML IV ONE (17:42)
[2016-12-24] MEDS ORDERED: morphine SULFATE 10 MG/ML, 1ML ONE ×2 (17:51→21:53)
[2016-12-24] MEDS ORDERED: ONDANSETRON 2MG/ML, 2ML ONE (17:51)
[2016-12-24] MEDS: MORPHINE SULFATE 4 MG/ML, 1ML IVPush PRN ×2 (17:53→21:56)
[2016-12-24] MEDS ORDERED: ONDANSETRON 2MG/ML, 2ML IVPush ONE (18:00)
[2016-12-24] MEDS ORDERED: ASPIRIN 81 MG TABLET CHEW PO ONE (18:00)
[2016-12-24 18:11] LABS: HEMATOCRIT 38.4 % (39.2-51.8); HEMOGLOBIN 13.3 g/dL (13.7-18.0); WHITE BLOOD COUNT 7.5 x10^3/uL (3.4-10)
[2016-12-24 18:15] LABS: ASPARTATE AMINO TRANSFERASE 18 U/L (15-37); BLOOD UREA NITROGEN 16 mg/dL (7-18)
[2016-12-24 18:21] LABS: IS PT STATUS REG ER OR PRE ER? YES
[2016-12-24] MEDS ORDERED: ALBUTEROL/IPRATROPIUM 2.5MG/0.5MG, 3 ML ONE (18:27)
[2016-12-24] MEDS: ALBUTEROL/IPRATROPIUM 2.5MG/0.5MG, 3 ML NPPB SCH ×2 (18:37→19:57)
[2016-12-24] MEDS ORDERED: ALBUTEROL/IPRATROPIUM 2.5MG/0.5MG, 3 ML NPPB ONE (19:30)
[2016-12-24] MEDS ORDERED: ALBUTEROL SULFATE 2.5 MG/3 ML ONE (19:53)
[2016-12-24 23:43] VITALS: BP 165/91
== END 2016-12-24 23:45 | disposition home or self-care (01) ==
LOC: ED 18:28
DX: J44.1 Chronic obstructive pulmonary disease with (acute) exacerbation (principal); I10 Essential (primary) hypertension; E11.9 Type 2 diabetes mellitus without complications; F17.210 Nicotine dependence, cigarettes, uncomplicated; Z99.81 Dependence on supplemental oxygen; G20 Parkinson's disease; F10.230 Alcohol dependence with withdrawal, uncomplicated
CPT/HCPCS: 36415; 71010; 80053; 83690; 83880; 84484; 85025; 93005; 94640; 96361; 96374; 96375; 99285; J2405; J7030; J7512; J7620

== ENCOUNTER 2017-01-13 16:32 | Emergency (ER) | payer MEDICAID ==
[~2017-01-13] VITALS: Ht 185.4 cm; Wt 123.0 kg
[2017-01-13] MEDS ORDERED: MAALOX/HYOSCYAMINE/LIDOCAINE 45 ML BTL ONE (16:50)
[2017-01-13] MEDS ORDERED: ALBUTEROL/IPRATROPIUM 2.5MG/0.5MG, 3 ML ONE (16:56)
[2017-01-13 16:58] LABS: HEMATOCRIT 43.2 % (39.2-51.8); HEMOGLOBIN 14.8 g/dL (13.7-18.0); WHITE BLOOD COUNT 8.9 x10^3/uL (3.4-10)
[2017-01-13] MEDS ORDERED: MAALOX/HYOSCYAMINE/LIDOCAINE 45 ML BTL PO ONE (17:00)
[2017-01-13] MEDS ORDERED: ALBUTEROL/IPRATROPIUM 2.5MG/0.5MG, 3 ML NPPB ONE (17:00)
[2017-01-13] MEDS ORDERED: PLEASE ENTER HEIGHT AND WEIGHT MC SCH (17:00)
[2017-01-13 17:06] LABS: ASPARTATE AMINO TRANSFERASE 20 U/L (15-37); BLOOD UREA NITROGEN 9 mg/dL (7-18)
[2017-01-13 17:10] LABS: IS PT STATUS REG ER OR PRE ER? YES
[2017-01-13 18:20] VITALS: BP 157/94
== END 2017-01-13 18:23 | disposition home or self-care (01) ==
LOC: ED 18:11
DX: J44.1 Chronic obstructive pulmonary disease with (acute) exacerbation (principal); E78.5 Hyperlipidemia, unspecified; F32.9 Major depressive disorder, single episode, unspecified; I11.0 Hypertensive heart disease with heart failure; I50.9 Heart failure, unspecified; G20 Parkinson's disease; I48.91 Unspecified atrial fibrillation; Z87.891 Personal history of nicotine dependence
CPT/HCPCS: 36415; 71010; 80053; 80307; 83690; 83880; 84484; 85025; 93005; 94640; 99285; G0479

== ENCOUNTER 2017-01-21 13:52 | Emergency (ER) | payer MEDICAID ==
[~2017-01-21] VITALS: Ht 182.9 cm; Wt 113.0 kg
[2017-01-21] MEDS ORDERED: ASPIRIN 81 MG TABLET CHEW ONE (14:27)
[2017-01-21] MEDS ORDERED: HYDROmorphone 1 MG/ML, 1ML ONE ×3 (14:28→16:25)
[2017-01-21] MEDS ORDERED: NITROGLYCERIN SINGLE TAB 0.4 MG SL ONE (14:28)
[2017-01-21] MEDS: NITROGLYCERIN SINGLE TAB 0.4 MG SL PRN ×3 (14:29→14:53)
[2017-01-21] MEDS ORDERED: ASPIRIN 81 MG TABLET CHEW PO ONE (14:30)
[2017-01-21] MEDS ORDERED: ASPIRIN 325 MG TABLET PO ONE (14:30)
[2017-01-21] MEDS ORDERED: PLEASE ENTER HEIGHT AND WEIGHT MC SCH (14:30)
[2017-01-21] MEDS ORDERED: SODIUM CHLORIDE FLUSH 10ML SYR IVF ONE (14:30)
[2017-01-21] MEDS: HYDROmorphone 2 MG/ML, 1ML IVPush PRN ×2 (14:31→15:47)
[2017-01-21] MEDS ORDERED: ONDANSETRON 2MG/ML, 2ML ONE (14:33)
[2017-01-21 15:39] LABS: HEMATOCRIT 42.2 % (39.2-51.8); HEMOGLOBIN 14.5 g/dL (13.7-18.0); WHITE BLOOD COUNT 6.4 x10^3/uL (3.4-10)
[2017-01-21 15:50] LABS: ASPARTATE AMINO TRANSFERASE 19 U/L (15-37); BLOOD UREA NITROGEN 10 mg/dL (7-18)
[2017-01-21 15:56] LABS: IS PT STATUS REG ER OR PRE ER? YES
[2017-01-21 16:35] VITALS: BP 126/96
== END 2017-01-21 17:00 | disposition home or self-care (01) ==
LOC: ED 14:29
DX: I11.0 Hypertensive heart disease with heart failure (principal); I50.9 Heart failure, unspecified; J44.9 Chronic obstructive pulmonary disease, unspecified; E78.5 Hyperlipidemia, unspecified; F32.9 Major depressive disorder, single episode, unspecified; F41.9 Anxiety disorder, unspecified; G20 Parkinson's disease; I48.91 Unspecified atrial fibrillation; Z87.891 Personal history of nicotine dependence; Z90.49 Acquired absence of other specified parts of digestive tract; M19.90 Unspecified osteoarthritis, unspecified site
CPT/HCPCS: 36415; 71010; 80053; 83880; 84484; 85025; 85610; 85730; 93005; 96374; 96376; 99285; J1170

== ENCOUNTER 2017-01-30 15:25 | Emergency (ER) | payer MEDICAID ==
[~2017-01-30] VITALS: Ht 185.4 cm; Wt 122.5 kg
[2017-01-30] MEDS ORDERED: SODIUM CHLORIDE 0.9% 1,000 ML IV ONE (16:28)
[2017-01-30] MEDS ORDERED: SODIUM CHLORIDE FLUSH 10ML SYR IVF ONE (16:30)
[2017-01-30] MEDS ORDERED: ONDANSETRON 2MG/ML, 2ML IVPush ONE (16:30)
[2017-01-30] MEDS ORDERED: HYDROmorphone 1 MG/ML, 1ML ONE ×2 (16:50→19:56)
[2017-01-30] MEDS ORDERED: ONDANSETRON 2MG/ML, 2ML ONE (16:51)
[2017-01-30 16:54] LABS: HEMATOCRIT 42.7 % (39.2-51.8); HEMOGLOBIN 14.6 g/dL (13.7-18.0); WHITE BLOOD COUNT 7.9 x10^3/uL (3.4-10)
[2017-01-30] MEDS: HYDROmorphone 1 MG/ML, 1ML IVPush PRN ×2 (16:57→20:08)
[2017-01-30 17:04] LABS: ASPARTATE AMINO TRANSFERASE 22 U/L (15-37); BLOOD UREA NITROGEN 13 mg/dL (7-18)
[2017-01-30] MEDS ORDERED: LORazepam 2 MG/ML, 1ML ONE (18:20)
[2017-01-30] MEDS ORDERED: LORazepam 2 MG/ML, 1ML IVPush ONE (18:30)
[2017-01-30] MEDS ORDERED: OMNIPAQUE 350 MG/ML, 100ML BOTTLE ONE (19:26)
[2017-01-30 20:56] VITALS: BP 199/106
== END 2017-01-30 20:57 | disposition home or self-care (01) ==
LOC: ED 19:04
DX: G89.29 Other chronic pain (principal); R10.84 Generalized abdominal pain; R19.7 Diarrhea, unspecified; R11.2 Nausea with vomiting, unspecified; E11.9 Type 2 diabetes mellitus without complications; E78.5 Hyperlipidemia, unspecified; F32.9 Major depressive disorder, single episode, unspecified; F41.9 Anxiety disorder, unspecified; I10 Essential (primary) hypertension; J44.9 Chronic obstructive pulmonary disease, unspecified; Z87.891 Personal history of nicotine dependence; Z90.49 Acquired absence of other specified parts of digestive tract
CPT/HCPCS: 36415; 74177; 80053; 81001; 83690; 85025; 93005; 96361; 96374; 96375; 96376; 99285; J1170; J2060; J2405; J7030; Q9967

== ENCOUNTER 2017-03-02 13:56 | Emergency (ER) | payer MEDICAID ==
[~2017-03-02] VITALS: Ht 188 cm; Wt 135.5 kg
[2017-03-02] MEDS ORDERED: ONDANSETRON 2MG/ML, 2ML IVPush ONE ×2 (14:30)
[2017-03-02] MEDS ORDERED: SODIUM CHLORIDE FLUSH 10ML SYR IVF ONE (14:30)
[2017-03-02] MEDS ORDERED: ASPIRIN 81 MG TABLET CHEW PO ONE (14:30)
[2017-03-02] MEDS ORDERED: SODIUM CHLORIDE 0.9% 1,000ML IVBOLUS ONE (14:30)
[2017-03-02] MEDS ORDERED: HYDROmorphone 2 MG/ML, 1ML ONE ×4 (14:34→15:38)
[2017-03-02] MEDS ORDERED: ONDANSETRON 2MG/ML, 2ML ONE (14:34)
[2017-03-02] MEDS: HYDROmorphone 1 MG/ML, 1ML IVPush PRN ×2 (14:50→15:40)
[2017-03-02 15:10] LABS: BASOPHILS # (AUTO) 0.01 x10^3/uL (0-0.1); BASOPHILS % (AUTO) 0 % (0-1); EOSINOPHILS # (AUTO) 0.08 x10^3/uL (0-0.4); EOSINOPHILS % (AUTO) 1 % (1-7); LYMPHOCYTES # (AUTO) 1.93 x10^3/uL (1-3.4); LYMPHOCYTES % (AUTO) 14 % (22-44); MD NO; MEAN CORPUSCULAR HEMOGLOBIN 32.3 pg (27.5-34.5); MEAN CORPUSCULAR HGB CONC 33.9 g/dL (33.2-36.2); MEAN CORPUSCULAR VOLUME 95.2 fL (81-97); MEAN PLATELET VOLUME 8.2 fL (7.4-10.4); MONOCYTES % (AUTO) 3 % (2-9); NEUTROPHILS # (AUTO) 11.26 x10^3/uL (1.8-6.8); NEUTROPHILS % (AUTO) 82 % (42-75); PLATELET COUNT 243 x10^3/uL (130-400); RED BLOOD COUNT 4.39 x10^6/uL (4.38-5.82); RED CELL DISTRIBUTION WIDTH 14.4 % (9.4-14.8)
[2017-03-02 15:20] LABS: ALBUMIN 3.7 g/dL (3.4-5.0); ANION GAP 12 mmol/L (5-15); CALCIUM 8.7 mg/dL (8.5-10.1); CHLORIDE 104 mmol/L (98-107)
[2017-03-02 15:28] LABS: ALANINE AMINOTRANSFERASE 92 U/L (12-78); ALKALINE PHOSPHATASE 55 U/L (45-117); BILIRUBIN,TOTAL 0.3 mg/dL (0.2-1.0); CREATININE 1.11 mg/dL (0.7-1.3); TOTAL PROTEIN 7.4 g/dL (6.4-8.2); TROPONIN I < 0.015 ng/mL (0.000-0.045)
[2017-03-02] MEDS ORDERED: OMNIPAQUE 350 MG/ML, 150 ML BOTTLE ONE (16:41)
[2017-03-02 17:58] LABS: MICROSCOPIC NOT IND
[2017-03-02 18:00] LABS: CULTURE INDICATED? NO
[2017-03-02] MEDS ORDERED: NAPROXEN 500 MG TABLET PO ONE (18:00)
[2017-03-02 18:30] VITALS: BP 108/61
== END 2017-03-02 18:45 | disposition home or self-care (01) ==
LOC: ED 14:40
DX: R10.31 Right lower quadrant pain (principal); R19.7 Diarrhea, unspecified; J44.9 Chronic obstructive pulmonary disease, unspecified; E78.5 Hyperlipidemia, unspecified; E11.9 Type 2 diabetes mellitus without complications; I11.9 Hypertensive heart disease without heart failure; Z86.711 Personal history of pulmonary embolism; G20 Parkinson's disease
CPT/HCPCS: 36415; 71045; 74177; 80053; 81003; 83690; 84484; 85025; 93005; 96361; 96374; 96375; 96376; 99285; J1170; J2405; J7030; Q9967

== ENCOUNTER 2017-03-05 11:59 | Emergency (ER) | payer MEDICAID ==
[~2017-03-05] VITALS: Ht 188 cm; Wt 122.0 kg
[2017-03-05] MEDS ORDERED: SODIUM CHLORIDE FLUSH 10ML SYR IVF ONE (13:00)
[2017-03-05] MEDS ORDERED: ASPIRIN 81 MG TABLET CHEW PO ONE (13:00)
[2017-03-05] MEDS ORDERED: SODIUM CHLORIDE 0.9% 1,000ML IVBOLUS ONE (13:00)
[2017-03-05 13:44] LABS: BASOPHILS # (AUTO) 0.01 x10^3/uL (0-0.1); BASOPHILS % (AUTO) 0 % (0-1); EOSINOPHILS % (AUTO) 2 % (1-7); LYMPHOCYTES # (AUTO) 0.92 x10^3/uL (1-3.4); LYMPHOCYTES % (AUTO) 8 % (22-44); MD NO; MEAN CORPUSCULAR HEMOGLOBIN 31.8 pg (27.5-34.5); MEAN CORPUSCULAR HGB CONC 33.8 g/dL (33.2-36.2); MEAN CORPUSCULAR VOLUME 94.2 fL (81-97); MEAN PLATELET VOLUME 7.9 fL (7.4-10.4); MONOCYTES # (AUTO) 0.63 x10^3/uL (0.2-0.8); MONOCYTES % (AUTO) 6 % (2-9); NEUTROPHILS # (AUTO) 9.74 x10^3/uL (1.8-6.8); NEUTROPHILS % (AUTO) 85 % (42-75); PLATELET COUNT 207 x10^3/uL (130-400); RED BLOOD COUNT 4.29 x10^6/uL (4.38-5.82); RED CELL DISTRIBUTION WIDTH 13.8 % (9.4-14.8)
[2017-03-05 13:54] LABS: ALANINE AMINOTRANSFERASE 72 U/L (12-78); ALBUMIN 3.7 g/dL (3.4-5.0); ANION GAP 8 mmol/L (5-15); CALCIUM 8.1 mg/dL (8.5-10.1); CHLORIDE 101 mmol/L (98-107); CREATININE 0.73 mg/dL (0.7-1.3); D-DIMER 0.38 ug/mlFEU (0.00-0.52); INTERNATIONAL NORMALIZED RATIO 1.02 (0.93-1.1); PROTHROMBIN TIME 10.6 Seconds (9.6-11.5)
[2017-03-05 13:58] LABS: ALKALINE PHOSPHATASE 65 U/L (45-117); BILIRUBIN,TOTAL 0.6 mg/dL (0.2-1.0); TOTAL PROTEIN 6.9 g/dL (6.4-8.2); TROPONIN I < 0.015 ng/mL (0.000-0.045)
[2017-03-05] MEDS ORDERED: METOPROLOL 1 MG/ML, 5ML ONE (14:04)
[2017-03-05] MEDS ORDERED: METOPROLOL 1 MG/ML, 5ML IVPush ONE (14:30)
[2017-03-05 14:53] VITALS: BP 150/95
[2017-03-05] MEDS ORDERED: MORPHINE SULFATE 4 MG/ML, 1ML ONE (15:17)
[2017-03-05] MEDS ORDERED: ONDANSETRON 2MG/ML, 2ML ONE (15:17)
[2017-03-05] MEDS ORDERED: MORPHINE SULFATE 4 MG/ML, 1ML IVPush ONE (15:30)
[2017-03-05] MEDS ORDERED: ONDANSETRON 2MG/ML, 2ML IVPush ONE (15:30)
== END 2017-03-05 15:43 | disposition home or self-care (01) ==
LOC: ED 15:37
DX: R07.89 Other chest pain (principal); E78.5 Hyperlipidemia, unspecified; G20 Parkinson's disease; I48.91 Unspecified atrial fibrillation; J44.9 Chronic obstructive pulmonary disease, unspecified; M19.90 Unspecified osteoarthritis, unspecified site; Z87.891 Personal history of nicotine dependence; Z90.49 Acquired absence of other specified parts of digestive tract; Z79.899 Other long term (current) drug therapy
CPT/HCPCS: 36415; 71045; 80053; 80307; 84484; 85025; 85379; 85610; 85730; 93005; 96361; 96374; 96375; 99285; J2405; J7030; G0479

== ENCOUNTER 2017-03-16 22:17 | Emergency (ER) | payer MEDICAID ==
[~2017-03-16] VITALS: Ht 188 cm; Wt 122.0 kg
[2017-03-16] MEDS ORDERED: methylPREDNISolone SOD SUCC 125 MG/2 ML ONE (22:39)
[2017-03-16] MEDS ORDERED: ONDANSETRON 2MG/ML, 2ML ONE (22:39)
[2017-03-16] MEDS ORDERED: MORPHINE SULFATE 4 MG/ML, 1ML ONE (22:39)
[2017-03-16] MEDS: MORPHINE SULFATE 4 MG/ML, 1ML IVPush PRN (22:46)
[2017-03-16 22:47] LABS: BASOPHILS # (AUTO) 0.01 x10^3/uL (0-0.1); BASOPHILS % (AUTO) 0 % (0-1); EOSINOPHILS # (AUTO) 0.02 x10^3/uL (0-0.4); EOSINOPHILS % (AUTO) 0 % (1-7); LYMPHOCYTES # (AUTO) 1.18 x10^3/uL (1-3.4); LYMPHOCYTES % (AUTO) 11 % (22-44); MD NO; MEAN CORPUSCULAR HEMOGLOBIN 31.5 pg (27.5-34.5); MEAN CORPUSCULAR HGB CONC 32.8 g/dL (33.2-36.2); MEAN CORPUSCULAR VOLUME 95.8 fL (81-97); MEAN PLATELET VOLUME 7.8 fL (7.4-10.4); MONOCYTES % (AUTO) 1 % (2-9); NEUTROPHILS # (AUTO) 9.64 x10^3/uL (1.8-6.8); NEUTROPHILS % (AUTO) 88 % (42-75); PLATELET COUNT 361 x10^3/uL (130-400); RED BLOOD COUNT 4.43 x10^6/uL (4.38-5.82); RED CELL DISTRIBUTION WIDTH 14.4 % (9.4-14.8)
[2017-03-16] MEDS ORDERED: ALBUTEROL/IPRATROPIUM 2.5MG/0.5MG, 3 ML ONE (22:55)
[2017-03-16 22:58] LABS: ALANINE AMINOTRANSFERASE 46 U/L (12-78); ALBUMIN 3.1 g/dL (3.4-5.0); ANION GAP 11 mmol/L (5-15); CALCIUM 8.5 mg/dL (8.5-10.1); CHLORIDE 100 mmol/L (98-107); CREATININE 1.23 mg/dL (0.7-1.3)
[2017-03-16] MEDS ORDERED: ONDANSETRON 2MG/ML, 2ML IVP ONE (23:00)
[2017-03-16] MEDS ORDERED: ALBUTEROL 0.5%, 20ML NPPB SCH (23:00)
[2017-03-16] MEDS ORDERED: methylPREDNISolone SOD SUCC 125 MG/2 ML IVP ONE (23:00)
[2017-03-16] MEDS ORDERED: SODIUM CHLORIDE 0.9% 1,000ML IVBOLUS ONE (23:00)
[2017-03-16 23:02] LABS: ALKALINE PHOSPHATASE 69 U/L (45-117); BILIRUBIN,TOTAL 0.2 mg/dL (0.2-1.0); TOTAL PROTEIN 7.4 g/dL (6.4-8.2); TROPONIN I < 0.015 ng/mL (0.000-0.045)
[2017-03-17] MEDS ORDERED: MORPHINE SULFATE 4 MG/ML, 1ML ONE (01:37)
[2017-03-17] MEDS: MORPHINE SULFATE 4 MG/ML, 1ML IVPush PRN (01:41)
[2017-03-17 01:42] VITALS: BP 140/79
== END 2017-03-17 02:09 | disposition home or self-care (01) ==
LOC: ED 22:36
DX: R07.89 Other chest pain (principal); J44.1 Chronic obstructive pulmonary disease with (acute) exacerbation; I48.91 Unspecified atrial fibrillation; I10 Essential (primary) hypertension; E11.9 Type 2 diabetes mellitus without complications; G20 Parkinson's disease; I50.9 Heart failure, unspecified; M19.90 Unspecified osteoarthritis, unspecified site
CPT/HCPCS: 36415; 71045; 80053; 80307; 84484; 85025; 93005; 94640; 96361; 96374; 96375; 96376; 99285; J2405; J2930; J7030

== ENCOUNTER 2017-03-17 20:33 | Observation (INO) | payer MEDICAID ==
[~2017-03-17] VITALS: Ht 188 cm; Wt 125.5 kg
[~2017-03-17 20:33] MED LIST changes: +METO200T47 PO; -METO200T5 PO; -SERT100T PO; +SERT20OR PO
[2017-03-17] MEDS ORDERED: ALBUTEROL SULFATE 2.5 MG/3 ML NPPB ONE ×2 (21:30→23:00)
[2017-03-17] MEDS ORDERED: ASPIRIN 81 MG TABLET CHEW PO ONE (21:30)
[2017-03-17] MEDS ORDERED: ALBUTEROL/IPRATROPIUM 2.5MG/0.5MG, 3 ML ONE ×2 (21:30→22:53)
[2017-03-17] MEDS ORDERED: ALBUTEROL/IPRATROPIUM 2.5MG/0.5MG, 3 ML NPPB ONE (21:30)
[2017-03-17] MEDS: ACETAMINOPHEN 325 MG TABLET PO ONE ×2 (21:30→21:35)
[2017-03-17] MEDS ORDERED: ASPIRIN 81 MG TABLET CHEW ONE (21:33)
[2017-03-17] MEDS ORDERED: ACETAMINOPHEN 325 MG TABLET ONE (21:33)
[2017-03-17 21:48] LABS: INTERNATIONAL NORMALIZED RATIO 1.19 (0.93-1.1); PROTHROMBIN TIME 12.3 Seconds (9.6-11.5)
[2017-03-17 21:51] LABS: ALANINE AMINOTRANSFERASE 38 U/L (12-78); ALBUMIN 3.2 g/dL (3.4-5.0); ANION GAP 10 mmol/L (5-15); BASOPHILS # (AUTO) 0.04 x10^3/uL (0-0.1); BASOPHILS % (AUTO) 0 % (0-1); CALCIUM 7.9 mg/dL (8.5-10.1); CHLORIDE 104 mmol/L (98-107); CREATININE 1.17 mg/dL (0.7-1.3); EOSINOPHILS # (AUTO) 0.02 x10^3/uL (0-0.4); EOSINOPHILS % (AUTO) 0 % (1-7); LYMPHOCYTES # (AUTO) 1.19 x10^3/uL (1-3.4); LYMPHOCYTES % (AUTO) 8 % (22-44); MD NO; MEAN CORPUSCULAR HEMOGLOBIN 31.8 pg (27.5-34.5); MEAN CORPUSCULAR HGB CONC 33.5 g/dL (33.2-36.2); MEAN CORPUSCULAR VOLUME 94.9 fL (81-97); MEAN PLATELET VOLUME 7.7 fL (7.4-10.4); MONOCYTES # (AUTO) 0.31 x10^3/uL (0.2-0.8); MONOCYTES % (AUTO) 2 % (2-9); NEUTROPHILS # (AUTO) 13.29 x10^3/uL (1.8-6.8); NEUTROPHILS % (AUTO) 90 % (42-75); PLATELET COUNT 333 x10^3/uL (130-400); RED BLOOD COUNT 3.95 x10^6/uL (4.38-5.82); RED CELL DISTRIBUTION WIDTH 14.4 % (9.4-14.8)
[2017-03-17 21:55] LABS: ALKALINE PHOSPHATASE 64 U/L (45-117); BILIRUBIN,TOTAL 0.2 mg/dL (0.2-1.0); TOTAL PROTEIN 6.8 g/dL (6.4-8.2); TROPONIN I < 0.015 ng/mL (0.000-0.045)
[2017-03-17] MEDS ORDERED: KETOROLAC 30 MG/1 ML ONE (22:56)
[2017-03-17] MEDS ORDERED: methylPREDNISolone SOD SUCC 125 MG/2 ML ONE (22:56)
[2017-03-17] MEDS ORDERED: GUAIFENESIN/DM 200-20MG, 10ML UDC PO PRN (23:00)
[2017-03-17] MEDS ORDERED: SODIUM CHLORIDE 0.9%, 500ML IVBOLUS ONE (23:00)
[2017-03-17] MEDS ORDERED: LACTATED RINGERS 1,000 ML IV SCH (23:00)
[2017-03-17] MEDS ORDERED: ONDANSETRON 2MG/ML, 2ML IVPush PRN (23:00)
[2017-03-17] MEDS ORDERED: AZITHROMYCIN 500 MG in SODIUM CHLORIDE 0.9% 250 ML IV ONE (23:00)
[2017-03-17] MEDS ORDERED: KETOROLAC 30 MG/1 ML IVPush ONE (23:00)
[2017-03-17] MEDS ORDERED: POLYETHYLENE GLYCOL 17 GM PACKET PO PRN (23:00)
[2017-03-17] MEDS ORDERED: methylPREDNISolone SOD SUCC 125 MG/2 ML IVPush SCH (23:00)
[2017-03-18 00:23] VITALS: BP 123/79
[2017-03-18 02:09] VITALS: BP 134/91
[2017-03-18] MEDS: methylPREDNISolone SOD SUCC 125 MG/2 ML IVPush SCH ×4 (04:55→22:39)
[2017-03-18 05:38] LABS: BASOPHILS # (AUTO) 0.03 x10^3/uL (0-0.1); BASOPHILS % (AUTO) 0 % (0-1); EOSINOPHILS # (AUTO) 0.01 x10^3/uL (0-0.4); EOSINOPHILS % (AUTO) 0 % (1-7); LYMPHOCYTES # (AUTO) 0.84 x10^3/uL (1-3.4); LYMPHOCYTES % (AUTO) 7 % (22-44); MD NO; MEAN CORPUSCULAR HEMOGLOBIN 31.9 pg (27.5-34.5); MEAN CORPUSCULAR HGB CONC 33.5 g/dL (33.2-36.2); MEAN PLATELET VOLUME 7.8 fL (7.4-10.4); MONOCYTES # (AUTO) 0.08 x10^3/uL (0.2-0.8); MONOCYTES % (AUTO) 1 % (2-9); NEUTROPHILS # (AUTO) 10.79 x10^3/uL (1.8-6.8); NEUTROPHILS % (AUTO) 92 % (42-75); PLATELET COUNT 267 x10^3/uL (130-400); RED BLOOD COUNT 3.88 x10^6/uL (4.38-5.82); RED CELL DISTRIBUTION WIDTH 14.4 % (9.4-14.8)
[2017-03-18 05:48] LABS: CHLORIDE 103 mmol/L (98-107)
[2017-03-18 06:03] LABS: ALANINE AMINOTRANSFERASE 40 U/L (12-78); ALBUMIN 3.1 g/dL (3.4-5.0); ALKALINE PHOSPHATASE 61 U/L (45-117); ANION GAP 4 mmol/L (5-15); BILIRUBIN,TOTAL 0.4 mg/dL (0.2-1.0); CREATININE 1.16 mg/dL (0.7-1.3); TOTAL PROTEIN 6.7 g/dL (6.4-8.2)
[2017-03-18 06:55] VITALS: BP 119/77
[2017-03-18] MEDS ORDERED: ALBUTEROL/IPRATROPIUM 2.5MG/0.5MG, 3 ML NPPB SCH (07:00)
[2017-03-18] MEDS ORDERED: FLUOXETINE HCL 20 MG CAPSULE ONE (07:44)
[2017-03-18] MEDS ORDERED: RIVAROXABAN 20 MG TABLET ONE (07:45)
[2017-03-18] MEDS ORDERED: GABAPENTIN 300 MG CAPSULE ONE (07:45)
[2017-03-18] MEDS ORDERED: METOPROLOL TARTRATE 50 MG TABLET ONE (07:45)
[2017-03-18] MEDS: GABAPENTIN 300 MG CAPSULE PO SCH ×3 (07:54→21:33)
[2017-03-18] MEDS: RIVAROXABAN 20 MG TABLET PO SCH (07:54)
[2017-03-18] MEDS: METOPROLOL TARTRATE 50 MG TABLET PO SCH (07:54)
[2017-03-18] MEDS: FLUOXETINE HCL 20 MG CAPSULE PO SCH (07:55)
[2017-03-18] MEDS: morphine SULFATE 10 MG/ML, 1ML IVPush PRN ×2 (09:51→13:27)
[2017-03-18] MEDS: ALBUTEROL/IPRATROPIUM 2.5MG/0.5MG, 3 ML NPPB SCH ×4 (11:10→22:26)
[2017-03-18 12:25] VITALS: BP 146/82
[2017-03-18 18:27] VITALS: BP 157/97
[2017-03-18] MEDS: INSULIN REGULAR 100 UNITS/ML, 3ML VIAL SQ-INSULIN SCH ×2 (19:56→23:45)
[2017-03-18] MEDS: ACETAMINOPHEN 325 MG TABLET PO PRN (20:39)
[2017-03-18] MEDS: GUAIFENESIN ER 600 MG TABLET PO SCH (21:00)
[2017-03-18] MEDS: ATORVASTATIN 40 MG TABLET PO SCH (21:33)
[2017-03-18] MEDS: TRAZODONE 50MG TABLET PO PRN ×2 (21:33→22:39)
[2017-03-19 02:05] VITALS: BP 124/68
[2017-03-19] MEDS: ALBUTEROL/IPRATROPIUM 2.5MG/0.5MG, 3 ML NPPB SCH ×3 (02:50→12:00)
[2017-03-19] MEDS: methylPREDNISolone SOD SUCC 125 MG/2 ML IVPush SCH ×3 (04:20→16:57)
[2017-03-19 05:36] LABS: BASOPHILS # (AUTO) 0.08 x10^3/uL (0-0.1); BASOPHILS % (AUTO) 1 % (0-1); EOSINOPHILS % (AUTO) 0 % (1-7); LYMPHOCYTES # (AUTO) 0.75 x10^3/uL (1-3.4); LYMPHOCYTES % (AUTO) 6 % (22-44); MD NO; MEAN CORPUSCULAR HEMOGLOBIN 31.9 pg (27.5-34.5); MEAN CORPUSCULAR HGB CONC 33.6 g/dL (33.2-36.2); MEAN CORPUSCULAR VOLUME 95.1 fL (81-97); MEAN PLATELET VOLUME 8.2 fL (7.4-10.4); MONOCYTES # (AUTO) 0.33 x10^3/uL (0.2-0.8); MONOCYTES % (AUTO) 3 % (2-9); NEUTROPHILS # (AUTO) 11.35 x10^3/uL (1.8-6.8); NEUTROPHILS % (AUTO) 91 % (42-75); PLATELET COUNT 266 x10^3/uL (130-400); RED BLOOD COUNT 3.82 x10^6/uL (4.38-5.82); RED CELL DISTRIBUTION WIDTH 14.1 % (9.4-14.8)
[2017-03-19 05:53] LABS: ALBUMIN 3.1 g/dL (3.4-5.0); ANION GAP 6 mmol/L (5-15); CALCIUM 8.5 mg/dL (8.5-10.1); CHLORIDE 101 mmol/L (98-107)
[2017-03-19 05:58] LABS: ALANINE AMINOTRANSFERASE 36 U/L (12-78); ALKALINE PHOSPHATASE 65 U/L (45-117); BILIRUBIN,TOTAL 0.5 mg/dL (0.2-1.0); CREATININE 0.95 mg/dL (0.7-1.3); TOTAL PROTEIN 6.6 g/dL (6.4-8.2)
[2017-03-19] MEDS: INSULIN REGULAR 100 UNITS/ML, 3ML VIAL SQ-INSULIN SCH ×4 (07:00→20:29)
[2017-03-19] MEDS: METOPROLOL TARTRATE 50 MG TABLET PO SCH (08:19)
[2017-03-19] MEDS: GABAPENTIN 300 MG CAPSULE PO SCH ×3 (08:19→20:27)
[2017-03-19] MEDS: FLUOXETINE HCL 20 MG CAPSULE PO SCH (08:19)
[2017-03-19] MEDS: RIVAROXABAN 20 MG TABLET PO SCH (08:19)
[2017-03-19] MEDS: GUAIFENESIN ER 600 MG TABLET PO SCH ×2 (08:19→20:27)
[2017-03-19 08:29] VITALS: BP 127/72
[2017-03-19] MEDS: OXYcodone IR 5MG TABLET PO PRN ×2 (10:29→16:56)
[2017-03-19] MEDS ORDERED: DEXTROSE 50%, 50ML SYRINGE IVPush PRN (12:30)
[2017-03-19] MEDS ORDERED: GLUCAGON 1 MG IM PRN (12:30)
[2017-03-19] MEDS ORDERED: DEXTROSE 4 GM TAB.CHEW PO PRN (12:30)
[2017-03-19 13:03] VITALS: BP 165/95
[2017-03-19] MEDS: ALBUTEROL/IPRATROPIUM 2.5MG/0.5MG, 3 ML NPPB PRN ×2 (14:50→21:00)
[2017-03-19 19:00] VITALS: BP 175/105
[2017-03-19 19:30] VITALS: BP 155/112
[2017-03-19] MEDS: ATORVASTATIN 40 MG TABLET PO SCH (20:27)
[2017-03-19] MEDS: INSULIN GLARGINE 100 UNITS/ML, PEN SQ-INSULIN SCH (20:30)
[2017-03-19] MEDS: LORazepam 1MG TABLET PO PRN (20:39)
[2017-03-19 22:08] VITALS: BP 139/90
[2017-03-20] MEDS: methylPREDNISolone SOD SUCC 125 MG/2 ML IVPush SCH ×4 (00:37→16:52)
[2017-03-20] MEDS: OXYcodone IR 5MG TABLET PO PRN ×2 (00:38→06:34)
[2017-03-20 02:00] VITALS: BP 116/91
[2017-03-20] MEDS: INSULIN REGULAR 100 UNITS/ML, 3ML VIAL SQ-INSULIN SCH ×4 (07:00→20:49)
[2017-03-20] MEDS: LORazepam 1MG TABLET PO PRN (07:33)
[2017-03-20 07:38] VITALS: BP 182/89
[2017-03-20] MEDS: RIVAROXABAN 20 MG TABLET PO SCH (07:59)
[2017-03-20] MEDS: GUAIFENESIN ER 600 MG TABLET PO SCH ×2 (07:59→20:50)
[2017-03-20] MEDS: GABAPENTIN 300 MG CAPSULE PO SCH ×3 (08:00→20:49)
[2017-03-20] MEDS: FLUOXETINE HCL 20 MG CAPSULE PO SCH (08:00)
[2017-03-20] MEDS: METOPROLOL TARTRATE 50 MG TABLET PO SCH (08:00)
[2017-03-20] MEDS ORDERED: OXYcodone IR 5MG TABLET PO PRN (08:30)
[2017-03-20] MEDS: BENZONATATE 100 MG CAPSULE PO SCH ×3 (09:19→20:57)
[2017-03-20] MEDS: GUAIFENESIN/DM 200-20MG, 10ML UDC PO SCH ×4 (09:19→20:30)
[2017-03-20] MEDS: SODIUM CHLORIDE 0.9% 1,000 ML IV SCH ×2 (09:19→17:54)
[2017-03-20 13:48] VITALS: BP 157/101
[2017-03-20] MEDS: ACETAMINOPHEN 325 MG TABLET PO PRN (16:35)
[2017-03-20 20:00] VITALS: BP 180/101
[2017-03-20] MEDS: INSULIN GLARGINE 100 UNITS/ML, PEN SQ-INSULIN SCH (20:49)
[2017-03-20] MEDS: ATORVASTATIN 40 MG TABLET PO SCH (20:50)
[2017-03-21] MEDS: methylPREDNISolone SOD SUCC 125 MG/2 ML IVPush SCH ×2 (00:57→05:36)
[2017-03-21] MEDS: GUAIFENESIN/DM 200-20MG, 10ML UDC PO SCH ×5 (00:57→16:30)
[2017-03-21 02:00] VITALS: BP 145/85
[2017-03-21] MEDS: SODIUM CHLORIDE 0.9% 1,000 ML IV SCH ×2 (04:25→14:30)
[2017-03-21 05:16] LABS: BASOPHILS # (AUTO) 0.02 x10^3/uL (0-0.1); BASOPHILS % (AUTO) 0 % (0-1); EOSINOPHILS # (AUTO) 0.01 x10^3/uL (0-0.4); EOSINOPHILS % (AUTO) 0 % (1-7); LYMPHOCYTES # (AUTO) 0.67 x10^3/uL (1-3.4); LYMPHOCYTES % (AUTO) 6 % (22-44); MD NO; MEAN CORPUSCULAR HEMOGLOBIN 31.3 pg (27.5-34.5); MEAN CORPUSCULAR HGB CONC 32.9 g/dL (33.2-36.2); MEAN CORPUSCULAR VOLUME 94.9 fL (81-97); MEAN PLATELET VOLUME 8.2 fL (7.4-10.4); MONOCYTES # (AUTO) 0.28 x10^3/uL (0.2-0.8); MONOCYTES % (AUTO) 2 % (2-9); NEUTROPHILS # (AUTO) 10.62 x10^3/uL (1.8-6.8); NEUTROPHILS % (AUTO) 92 % (42-75); PLATELET COUNT 256 x10^3/uL (130-400); RED BLOOD COUNT 3.97 x10^6/uL (4.38-5.82); RED CELL DISTRIBUTION WIDTH 14.2 % (9.4-14.8)
[2017-03-21 05:32] LABS: ANION GAP 4 mmol/L (5-15); CALCIUM 8.7 mg/dL (8.5-10.1); CHLORIDE 103 mmol/L (98-107); CREATININE 1.02 mg/dL (0.7-1.3)
[2017-03-21] MEDS: LORazepam 1MG TABLET PO PRN (06:28)
[2017-03-21 07:56] VITALS: BP 142/101
[2017-03-21] MEDS ORDERED: GUAI5SYR PO (07:56)
[2017-03-21] MEDS ORDERED: PRED20TA PO ×2 (07:58)
[2017-03-21] MEDS: INSULIN REGULAR 100 UNITS/ML, 3ML VIAL SQ-INSULIN SCH ×3 (08:30→16:45)
[2017-03-21] MEDS: FLUOXETINE HCL 20 MG CAPSULE PO SCH (08:30)
[2017-03-21] MEDS: GUAIFENESIN ER 600 MG TABLET PO SCH (08:31)
[2017-03-21] MEDS: BENZONATATE 100 MG CAPSULE PO SCH ×2 (08:31→16:44)
[2017-03-21] MEDS: RIVAROXABAN 20 MG TABLET PO SCH (08:31)
[2017-03-21] MEDS: METOPROLOL TARTRATE 50 MG TABLET PO SCH (08:31)
[2017-03-21] MEDS: GABAPENTIN 300 MG CAPSULE PO SCH ×2 (08:31→16:44)
[2017-03-21 12:54] VITALS: BP 148/94
== END 2017-03-21 17:38 | disposition home or self-care (01) ==
LOC: ED 21:40 → INTOOBSV 22:51 → EDIP 22:51 → 4EST 23:59 → UNDODISIN 03-21 07:56
PROVIDERS: ADMIT Hospitalist; ATTEND Hospitalist
DX: J96.00 Acute respiratory failure, unspecified whether with hypoxia or hypercapnia (principal); E78.5 Hyperlipidemia, unspecified; J43.9 Emphysema, unspecified; J44.1 Chronic obstructive pulmonary disease with (acute) exacerbation; I48.0 Paroxysmal atrial fibrillation; R07.89 Other chest pain; K57.92 Diverticulitis of intestine, part unspecified, without perforation or abscess without bleeding; E11.65 Type 2 diabetes mellitus with hyperglycemia; E66.01 Morbid (severe) obesity due to excess calories; I11.0 Hypertensive heart disease with heart failure; I50.9 Heart failure, unspecified; Z86.19 Personal history of other infectious and parasitic diseases; Z86.711 Personal history of pulmonary embolism; Z91.19 Patient's noncompliance with other medical treatment and regimen; Z87.01 Personal history of pneumonia (recurrent)
CPT/HCPCS: 36415; 71045; 80048; 80053; 80307; 82947; 82962; 83735; 83880; 84100; 84484; 85025; 85379; 85610; 85730; 93005; 94640; 96365; 96372; 96375; 96376; 97163; 99285; G0378; G8978; G8979; G8980; J0456; J1815; J2270; J2930; J7030; J7040; J7050; J7120; J7512; J7613; J7620

== ENCOUNTER 2017-03-29 19:29 | Observation (INO) | payer MEDICAID ==
[~2017-03-29] VITALS: Ht 188 cm; Wt 124.1 kg
[~2017-03-29 19:29] MED LIST changes: +GUAI5SYR PO
[2017-03-29] MEDS ORDERED: ALBUTEROL/IPRATROPIUM 2.5MG/0.5MG, 3 ML NPPB ONE (20:00)
[2017-03-29] MEDS ORDERED: SODIUM CHLORIDE FLUSH 10ML SYR IVF ONE (20:00)
[2017-03-29 20:08] LABS: BASOPHILS # (AUTO) 0.09 x10^3/uL (0-0.1); BASOPHILS % (AUTO) 1 % (0-1); EOSINOPHILS % (AUTO) 0 % (1-7); LYMPHOCYTES # (AUTO) 1.08 x10^3/uL (1-3.4); LYMPHOCYTES % (AUTO) 9 % (22-44); MD NO; MEAN CORPUSCULAR HEMOGLOBIN 31.3 pg (27.5-34.5); MEAN CORPUSCULAR HGB CONC 33.2 g/dL (33.2-36.2); MEAN CORPUSCULAR VOLUME 94.1 fL (81-97); MEAN PLATELET VOLUME 8.7 fL (7.4-10.4); MONOCYTES # (AUTO) 0.54 x10^3/uL (0.2-0.8); MONOCYTES % (AUTO) 4 % (2-9); NEUTROPHILS % (AUTO) 86 % (42-75); PLATELET COUNT 235 x10^3/uL (130-400); RED BLOOD COUNT 4.44 x10^6/uL (4.38-5.82); RED CELL DISTRIBUTION WIDTH 14.5 % (9.4-14.8)
[2017-03-29 20:19] LABS: ALANINE AMINOTRANSFERASE 69 U/L (12-78); ALBUMIN 3.3 g/dL (3.4-5.0); ANION GAP 16 mmol/L (5-15); CALCIUM 8.9 mg/dL (8.5-10.1); CHLORIDE 96 mmol/L (98-107); CREATININE 1.49 mg/dL (0.7-1.3)
[2017-03-29 20:22] LABS: INTERNATIONAL NORMALIZED RATIO 1.01 (0.93-1.1); PROTHROMBIN TIME 10.4 Seconds (9.6-11.5)
[2017-03-29 20:24] LABS: ALKALINE PHOSPHATASE 63 U/L (45-117); BILIRUBIN,TOTAL 0.3 mg/dL (0.2-1.0); TOTAL PROTEIN 6.7 g/dL (6.4-8.2); TROPONIN I < 0.015 ng/mL (0.000-0.045)
[2017-03-29 20:27] LABS: ACETONE, SERUM Negative (Negative)
[2017-03-29] MEDS ORDERED: ALBUTEROL/IPRATROPIUM 2.5MG/0.5MG, 3 ML ONE (20:27)
[2017-03-29 20:46] LABS: HEMOGLOBIN A1C 7.6 % (4.2-6.3)
[2017-03-29] MEDS ORDERED: SODIUM CHLORIDE FLUSH 10ML SYR IVF PRN (21:00)
[2017-03-29] MEDS ORDERED: TRAZ50TA18 PO (21:59)
[2017-03-29] MEDS ORDERED: METF500T4 PO (22:01)
[2017-03-29] MEDS ORDERED: ENALAPRILAT 1.25 MG/ML, 2ML IVPush PRN (22:30)
[2017-03-29] MEDS ORDERED: ONDANSETRON ODT 4 MG PO PRN (22:30)
[2017-03-29] MEDS ORDERED: ALBUTEROL/IPRATROPIUM 2.5MG/0.5MG, 3 ML IPPB PRN (22:30)
[2017-03-29] MEDS ORDERED: DOCUSATE 100 MG CAPSULE PO PRN (22:30)
[2017-03-29 23:43] VITALS: BP 136/90
[2017-03-30] MEDS: LORazepam 1MG TABLET PO PRN ×5 (00:12→20:41)
[2017-03-30] MEDS: ACETAMINOPHEN 325 MG TABLET PO PRN ×2 (00:12→13:50)
[2017-03-30] MEDS: GABAPENTIN 300 MG CAPSULE PO SCH ×2 (00:12→10:07)
[2017-03-30] MEDS: ATORVASTATIN 40 MG TABLET PO SCH ×2 (00:12→20:37)
[2017-03-30 01:15] VITALS: BP 120/82
[2017-03-30 05:16] LABS: ANION GAP 6 mmol/L (5-15); CALCIUM 8.8 mg/dL (8.5-10.1); CHLORIDE 100 mmol/L (98-107); CREATININE 1.11 mg/dL (0.7-1.3)
[2017-03-30 05:24] LABS: BASOPHILS # (AUTO) 0.06 x10^3/uL (0-0.1); BASOPHILS % (AUTO) 1 % (0-1); EOSINOPHILS # (AUTO) 0.03 x10^3/uL (0-0.4); EOSINOPHILS % (AUTO) 0 % (1-7); LYMPHOCYTES # (AUTO) 1.81 x10^3/uL (1-3.4); LYMPHOCYTES % (AUTO) 21 % (22-44); MD NO; MEAN CORPUSCULAR HEMOGLOBIN 31.2 pg (27.5-34.5); MEAN CORPUSCULAR HGB CONC 33.3 g/dL (33.2-36.2); MEAN CORPUSCULAR VOLUME 93.8 fL (81-97); MEAN PLATELET VOLUME 8.8 fL (7.4-10.4); MONOCYTES # (AUTO) 0.54 x10^3/uL (0.2-0.8); MONOCYTES % (AUTO) 6 % (2-9); NEUTROPHILS # (AUTO) 6.41 x10^3/uL (1.8-6.8); NEUTROPHILS % (AUTO) 72 % (42-75); PLATELET COUNT 199 x10^3/uL (130-400); RED BLOOD COUNT 4.36 x10^6/uL (4.38-5.82)
[2017-03-30] MEDS: FLUOXETINE HCL 20 MG CAPSULE PO SCH (10:07)
[2017-03-30] MEDS: FOLIC ACID 1 MG TABLET PO SCH (10:07)
[2017-03-30] MEDS: METOPROLOL TARTRATE 50 MG TABLET PO SCH (10:07)
[2017-03-30] MEDS: THIAMINE 100MG TABLET PO SCH (10:08)
[2017-03-30] MEDS: RIVAROXABAN 20 MG TABLET PO SCH (10:08)
[2017-03-30 10:14] VITALS: BP 119/79
[2017-03-30 10:40] LABS: MICROSCOPIC NOT IND
[2017-03-30 10:48] LABS: CULTURE INDICATED? NO
[2017-03-30] MEDS: FLUTICASONE/VILANTEROL 200-25MCG/INH INH SCH (11:35)
[2017-03-30 12:49] VITALS: BP 112/73
[2017-03-30 19:28] VITALS: BP 116/77
[2017-03-30] MEDS: TRAZODONE 50MG TABLET PO SCH (20:37)
[2017-03-31] MEDS: LORazepam 1MG TABLET PO PRN ×4 (02:13→20:25)
[2017-03-31 02:17] VITALS: BP 115/79
[2017-03-31 07:07] VITALS: BP 129/88
[2017-03-31 08:47] LABS: HEMOGLOBIN A1C 7.7 % (4.2-6.3)
[2017-03-31] MEDS: RIVAROXABAN 20 MG TABLET PO SCH (09:30)
[2017-03-31] MEDS: FOLIC ACID 1 MG TABLET PO SCH (09:30)
[2017-03-31] MEDS: FLUTICASONE/VILANTEROL 200-25MCG/INH INH SCH (09:30)
[2017-03-31] MEDS: THIAMINE 100MG TABLET PO SCH (09:30)
[2017-03-31] MEDS: METOPROLOL TARTRATE 50 MG TABLET PO SCH (09:31)
[2017-03-31] MEDS: FLUOXETINE HCL 20 MG CAPSULE PO SCH (09:31)
[2017-03-31] MEDS: metFORMIN 500 MG TABLET PO SCH ×2 (09:31→20:25)
[2017-03-31 13:02] VITALS: BP 108/72
[2017-03-31 16:12] VITALS: BP 113/67
[2017-03-31 19:59] VITALS: BP 141/94
[2017-03-31] MEDS: TRAZODONE 50MG TABLET PO SCH (20:24)
[2017-03-31] MEDS: ATORVASTATIN 40 MG TABLET PO SCH (20:25)
[2017-03-31] MEDS: ACETAMINOPHEN 325 MG TABLET PO PRN (20:26)
[2017-04-01] VITALS (11 sets, daily range): BP systolic 108–151; BP diastolic 60–98
[2017-04-01] MEDS: LORazepam 1MG TABLET PO PRN ×4 (01:17→19:32)
[2017-04-01] MEDS: METOPROLOL TARTRATE 50 MG TABLET PO SCH (09:00)
[2017-04-01] MEDS: FOLIC ACID 1 MG TABLET PO SCH (09:39)
[2017-04-01] MEDS: THIAMINE 100MG TABLET PO SCH (09:39)
[2017-04-01] MEDS: RIVAROXABAN 20 MG TABLET PO SCH (09:39)
[2017-04-01] MEDS: FLUOXETINE HCL 20 MG CAPSULE PO SCH (09:40)
[2017-04-01] MEDS: metFORMIN 500 MG TABLET PO SCH ×2 (09:40→20:14)
[2017-04-01] MEDS: FLUTICASONE/VILANTEROL 200-25MCG/INH INH SCH (09:41)
[2017-04-01] MEDS: ACETAMINOPHEN 325 MG TABLET PO PRN ×2 (16:06→20:13)
[2017-04-01] MEDS: ATORVASTATIN 40 MG TABLET PO SCH (20:15)
[2017-04-01] MEDS: TRAZODONE 50MG TABLET PO SCH (20:17)
[2017-04-01] MEDS: OXYcodone IR 5MG TABLET PO PRN (22:49)
[2017-04-02 02:57] VITALS: BP 129/68
[2017-04-02] MEDS: LORazepam 1MG TABLET PO PRN ×4 (05:48→20:20)
[2017-04-02] MEDS: OXYcodone IR 5MG TABLET PO PRN (06:24)
[2017-04-02 07:24] VITALS: BP 121/78
[2017-04-02] MEDS: METOPROLOL TARTRATE 50 MG TABLET PO SCH (08:33)
[2017-04-02] MEDS: metFORMIN 500 MG TABLET PO SCH ×2 (08:33→20:19)
[2017-04-02] MEDS: THIAMINE 100MG TABLET PO SCH (08:33)
[2017-04-02] MEDS: FLUOXETINE HCL 20 MG CAPSULE PO SCH (08:33)
[2017-04-02] MEDS: RIVAROXABAN 20 MG TABLET PO SCH (08:33)
[2017-04-02] MEDS: FOLIC ACID 1 MG TABLET PO SCH (08:34)
[2017-04-02] MEDS: FLUTICASONE/VILANTEROL 200-25MCG/INH INH SCH (08:36)
[2017-04-02] MEDS: HYDROcodone/APAP 5/325 TABLET PO PRN ×3 (11:12→20:20)
[2017-04-02 12:46] VITALS: BP 125/79
[2017-04-02] MEDS ORDERED: THIA100T6 PO (15:41)
[2017-04-02] MEDS ORDERED: FOLI-17 PO (15:41)
[2017-04-02 19:25] VITALS: BP 120/81
[2017-04-02] MEDS: TRAZODONE 50MG TABLET PO SCH (20:19)
[2017-04-02] MEDS: ATORVASTATIN 40 MG TABLET PO SCH (20:20)
[2017-04-03] MEDS: HYDROcodone/APAP 5/325 TABLET PO PRN ×3 (01:49→11:08)
[2017-04-03] MEDS: LORazepam 1MG TABLET PO PRN ×3 (01:49→11:08)
[2017-04-03 02:16] VITALS: BP 133/77
[2017-04-03 07:32] VITALS: BP 135/86
[2017-04-03] MEDS: METOPROLOL TARTRATE 50 MG TABLET PO SCH (08:13)
[2017-04-03] MEDS: THIAMINE 100MG TABLET PO SCH (08:13)
[2017-04-03] MEDS: RIVAROXABAN 20 MG TABLET PO SCH (08:13)
[2017-04-03] MEDS: FOLIC ACID 1 MG TABLET PO SCH (08:13)
[2017-04-03] MEDS: metFORMIN 500 MG TABLET PO SCH (08:13)
[2017-04-03] MEDS: FLUOXETINE HCL 20 MG CAPSULE PO SCH (08:13)
[2017-04-03] MEDS: FLUTICASONE/VILANTEROL 200-25MCG/INH INH SCH (08:14)
== END 2017-04-03 11:10 ==
LOC: ED 20:31 → EDIP 21:00 → INTOOBSV 21:00 → 4NOR 23:35
PROVIDERS: ADMIT Internal Medicine; ATTEND Internal Medicine
DX: J44.1 Chronic obstructive pulmonary disease with (acute) exacerbation (principal); J43.9 Emphysema, unspecified; I11.0 Hypertensive heart disease with heart failure; E78.5 Hyperlipidemia, unspecified; I48.91 Unspecified atrial fibrillation; I50.9 Heart failure, unspecified; F32.9 Major depressive disorder, single episode, unspecified; E11.40 Type 2 diabetes mellitus with diabetic neuropathy, unspecified; E11.65 Type 2 diabetes mellitus with hyperglycemia; Z87.891 Personal history of nicotine dependence
CPT/HCPCS: 36415; 70450; 71045; 73502; 80048; 80053; 80307; 81003; 82010; 82800; 82962; 83036; 83690; 83735; 83880; 84484; 85025; 85610; 85730; 93005; 93306; 94640; 97162; 97166; 99285; G0378; G8978; G8979; G8980; J7620

== ENCOUNTER 2017-04-18 18:17 | Inpatient (IN) | payer MEDICAID ==
[~2017-04-18] VITALS: Ht 185.4 cm; Wt 124.9 kg
[~2017-04-18 18:17] MED LIST changes: +FOLI-17 PO; +METF500T4 PO; +SERT100T PO; -SERT20OR PO; +THIA100T6 PO
[2017-04-18] MEDS ORDERED: SODIUM CHLORIDE FLUSH 10ML SYR IVF ONE (19:00)
[2017-04-18] MEDS ORDERED: SODIUM CHLORIDE 0.9% 1,000ML IVBOLUS ONE (19:00)
[2017-04-18 19:14] LABS: BASOPHILS # (AUTO) 0.03 x10^3/uL (0-0.1); BASOPHILS % (AUTO) 0 % (0-1); EOSINOPHILS # (AUTO) 0.23 x10^3/uL (0-0.4); EOSINOPHILS % (AUTO) 3 % (1-7); LYMPHOCYTES # (AUTO) 1.79 x10^3/uL (1-3.4); LYMPHOCYTES % (AUTO) 23 % (22-44); MD NO; MEAN CORPUSCULAR HEMOGLOBIN 31.9 pg (27.5-34.5); MEAN CORPUSCULAR HGB CONC 34.8 g/dL (33.2-36.2); MEAN CORPUSCULAR VOLUME 91.7 fL (81-97); MEAN PLATELET VOLUME 8.6 fL (7.4-10.4); MONOCYTES # (AUTO) 0.73 x10^3/uL (0.2-0.8); MONOCYTES % (AUTO) 9 % (2-9); NEUTROPHILS # (AUTO) 5.02 x10^3/uL (1.8-6.8); NEUTROPHILS % (AUTO) 64 % (42-75); PLATELET COUNT 330 x10^3/uL (130-400); RED BLOOD COUNT 4.57 x10^6/uL (4.38-5.82)
[2017-04-18 19:17] LABS: ALBUMIN 3.9 g/dL (3.4-5.0); ANION GAP 12 mmol/L (5-15); CALCIUM 8.2 mg/dL (8.5-10.1); CHLORIDE 104 mmol/L (98-107); CREATININE 1.25 mg/dL (0.7-1.3)
[2017-04-18 19:21] LABS: TROPONIN I < 0.015 ng/mL (0.000-0.045)
[2017-04-18] MEDS ORDERED: ONDANSETRON 2MG/ML, 2ML ONE (21:14)
[2017-04-18] MEDS ORDERED: HEPARIN 5,000 UNITS/ML, 1ML SQ SCH (21:30)
[2017-04-18] MEDS: SODIUM CHLORIDE FLUSH 10ML SYR IVF SCH (21:30)
[2017-04-18] MEDS ORDERED: BISACODYL 10 MG SUPP PR PRN (21:30)
[2017-04-18] MEDS ORDERED: POLYETHYLENE GLYCOL 17 GM PACKET PO PRN (21:30)
[2017-04-18] MEDS: GABAPENTIN 300 MG CAPSULE PO SCH (21:30)
[2017-04-18] MEDS ORDERED: ONDANSETRON 2MG/ML, 2ML IVPush ONE (21:30)
[2017-04-18] MEDS ORDERED: ONDANSETRON 2MG/ML, 2ML IVPush PRN (21:30)
[2017-04-18 22:10] VITALS: BP 157/95
[2017-04-18] MEDS: ATORVASTATIN 40 MG TABLET PO SCH (22:24)
[2017-04-18] MEDS: metFORMIN 500 MG TABLET PO SCH (22:24)
[2017-04-18] MEDS ORDERED: DIPHENHYDRAMINE 50 MG CAPSULE PO ONE (23:10)
[2017-04-18] MEDS: ACETAMINOPHEN 325 MG TABLET PO PRN (23:11)
[2017-04-19 02:38] VITALS: BP 121/67
[2017-04-19 05:37] LABS: BASOPHILS # (AUTO) 0.01 x10^3/uL (0-0.1); BASOPHILS % (AUTO) 0 % (0-1); EOSINOPHILS # (AUTO) 0.02 x10^3/uL (0-0.4); EOSINOPHILS % (AUTO) 0 % (1-7); LYMPHOCYTES # (AUTO) 0.82 x10^3/uL (1-3.4); LYMPHOCYTES % (AUTO) 18 % (22-44); MD NO; MEAN CORPUSCULAR HGB CONC 33.9 g/dL (33.2-36.2); MEAN CORPUSCULAR VOLUME 91.5 fL (81-97); MEAN PLATELET VOLUME 8.7 fL (7.4-10.4); MONOCYTES # (AUTO) 0.17 x10^3/uL (0.2-0.8); MONOCYTES % (AUTO) 4 % (2-9); NEUTROPHILS # (AUTO) 3.65 x10^3/uL (1.8-6.8); NEUTROPHILS % (AUTO) 78 % (42-75); PLATELET COUNT 245 x10^3/uL (130-400); RED BLOOD COUNT 4.05 x10^6/uL (4.38-5.82)
[2017-04-19 05:53] VITALS: BP 125/78
[2017-04-19] MEDS: ALBUTEROL/IPRATROPIUM 2.5MG/0.5MG, 3 ML NPPB SCH ×4 (06:27→19:13)
[2017-04-19 06:59] LABS: ALANINE AMINOTRANSFERASE 32 U/L (12-78); ALBUMIN 3.3 g/dL (3.4-5.0); ANION GAP 8 mmol/L (5-15); CALCIUM 8.5 mg/dL (8.5-10.1); CHLORIDE 105 mmol/L (98-107); CREATININE 0.95 mg/dL (0.7-1.3)
[2017-04-19 07:01] LABS: ALKALINE PHOSPHATASE 71 U/L (45-117); BILIRUBIN,TOTAL 0.5 mg/dL (0.2-1.0); TOTAL PROTEIN 6.8 g/dL (6.4-8.2)
[2017-04-19] MEDS: metFORMIN 500 MG TABLET PO SCH ×2 (08:23→20:42)
[2017-04-19] MEDS: RIVAROXABAN 20 MG TABLET PO SCH (08:23)
[2017-04-19] MEDS: GABAPENTIN 300 MG CAPSULE PO SCH ×3 (08:23→20:42)
[2017-04-19] MEDS: FOLIC ACID 1 MG TABLET PO SCH (08:24)
[2017-04-19] MEDS: SENNA/DOCUSATE TABLET PO SCH (08:24)
[2017-04-19] MEDS: FLUOXETINE HCL 20 MG CAPSULE PO SCH (08:24)
[2017-04-19] MEDS: THIAMINE 100MG TABLET PO SCH (08:24)
[2017-04-19] MEDS: SODIUM CHLORIDE FLUSH 10ML SYR IVF SCH ×2 (08:59→20:43)
[2017-04-19] MEDS: METOPROLOL TARTRATE 50 MG TABLET PO SCH (08:59)
[2017-04-19] MEDS ORDERED: LORazepam 1MG TABLET PO PRN ×3 (09:30)
[2017-04-19] MEDS ORDERED: LORazepam 2 MG/ML, 1ML IV PRN (09:30)
[2017-04-19] MEDS: FLUTICASONE/VILANTEROL 200-25MCG/INH INH SCH (11:13)
[2017-04-19 13:01] VITALS: BP 136/93
[2017-04-19] MEDS: LORazepam 2 MG/ML, 1ML IV PRN ×5 (13:02→22:48)
[2017-04-19] MEDS: INSULIN LISPRO 100 UNITS/ML, PEN SQ-INSULIN SCH ×2 (16:48→20:43)
[2017-04-19 19:42] VITALS: BP 119/73
[2017-04-19] MEDS: ATORVASTATIN 40 MG TABLET PO SCH (20:42)
[2017-04-20] MEDS: LORazepam 2 MG/ML, 1ML IV PRN ×5 (00:53→23:28)
[2017-04-20 02:45] VITALS: BP 120/70
[2017-04-20 06:33] VITALS: BP 126/76
[2017-04-20] MEDS: INSULIN LISPRO 100 UNITS/ML, PEN SQ-INSULIN SCH ×4 (08:35→20:31)
[2017-04-20] MEDS: FLUTICASONE/VILANTEROL 200-25MCG/INH INH SCH (08:35)
[2017-04-20] MEDS: METOPROLOL TARTRATE 50 MG TABLET PO SCH (08:36)
[2017-04-20] MEDS: THIAMINE 100MG TABLET PO SCH (08:36)
[2017-04-20] MEDS: metFORMIN 500 MG TABLET PO SCH ×2 (08:36→20:30)
[2017-04-20] MEDS: RIVAROXABAN 20 MG TABLET PO SCH (08:36)
[2017-04-20] MEDS: FOLIC ACID 1 MG TABLET PO SCH (08:36)
[2017-04-20] MEDS: FLUOXETINE HCL 20 MG CAPSULE PO SCH (08:36)
[2017-04-20] MEDS: GABAPENTIN 300 MG CAPSULE PO SCH ×3 (08:36→20:30)
[2017-04-20] MEDS: SENNA/DOCUSATE TABLET PO SCH (08:37)
[2017-04-20] MEDS: LORazepam 1MG TABLET PO PRN (08:56)
[2017-04-20] MEDS: SODIUM CHLORIDE FLUSH 10ML SYR IVF SCH ×2 (08:57→20:30)
[2017-04-20 13:12] VITALS: BP 141/92
[2017-04-20 18:41] VITALS: BP 133/87
[2017-04-20] MEDS: ATORVASTATIN 40 MG TABLET PO SCH (20:30)
[2017-04-21 01:31] VITALS: BP 128/80
[2017-04-21] MEDS: LORazepam 2 MG/ML, 1ML IV PRN ×7 (01:45→20:12)
[2017-04-21 06:33] VITALS: BP 149/93
[2017-04-21] MEDS ORDERED: ALBUTEROL/IPRATROPIUM 2.5MG/0.5MG, 3 ML NPPB PRN (07:00)
[2017-04-21] MEDS: INSULIN LISPRO 100 UNITS/ML, PEN SQ-INSULIN SCH ×4 (07:00→20:13)
[2017-04-21] MEDS: SENNA/DOCUSATE TABLET PO SCH (09:00)
[2017-04-21] MEDS: FOLIC ACID 1 MG TABLET PO SCH (10:53)
[2017-04-21] MEDS: FLUTICASONE/VILANTEROL 200-25MCG/INH INH SCH (10:53)
[2017-04-21] MEDS: SODIUM CHLORIDE FLUSH 10ML SYR IVF SCH ×2 (10:53→20:12)
[2017-04-21] MEDS: RIVAROXABAN 20 MG TABLET PO SCH (10:54)
[2017-04-21] MEDS: METOPROLOL TARTRATE 50 MG TABLET PO SCH (10:54)
[2017-04-21] MEDS: metFORMIN 500 MG TABLET PO SCH ×2 (10:54→20:12)
[2017-04-21] MEDS: THIAMINE 100MG TABLET PO SCH (10:54)
[2017-04-21] MEDS: GABAPENTIN 300 MG CAPSULE PO SCH ×3 (10:54→20:12)
[2017-04-21] MEDS: FLUOXETINE HCL 20 MG CAPSULE PO SCH (10:54)
[2017-04-21 13:44] VITALS: BP 128/77
[2017-04-21 18:39] VITALS: BP 152/89
[2017-04-21] MEDS: ATORVASTATIN 40 MG TABLET PO SCH (20:12)
[2017-04-22] MEDS: LORazepam 2 MG/ML, 1ML IV PRN ×2 (00:09→04:59)
[2017-04-22 00:25] VITALS: BP 133/82
[2017-04-22 05:27] LABS: BASOPHILS # (AUTO) 0.01 x10^3/uL (0-0.1); BASOPHILS % (AUTO) 0 % (0-1); EOSINOPHILS # (AUTO) 0.27 x10^3/uL (0-0.4); EOSINOPHILS % (AUTO) 4 % (1-7); LYMPHOCYTES # (AUTO) 1.52 x10^3/uL (1-3.4); LYMPHOCYTES % (AUTO) 24 % (22-44); MD NO; MEAN CORPUSCULAR HEMOGLOBIN 30.9 pg (27.5-34.5); MEAN CORPUSCULAR HGB CONC 33.8 g/dL (33.2-36.2); MEAN CORPUSCULAR VOLUME 91.4 fL (81-97); MEAN PLATELET VOLUME 8.4 fL (7.4-10.4); MONOCYTES # (AUTO) 0.97 x10^3/uL (0.2-0.8); MONOCYTES % (AUTO) 15 % (2-9); NEUTROPHILS % (AUTO) 57 % (42-75); PLATELET COUNT 228 x10^3/uL (130-400); RED BLOOD COUNT 4.49 x10^6/uL (4.38-5.82); RED CELL DISTRIBUTION WIDTH 14.8 % (9.4-14.8)
[2017-04-22 05:30] LABS: CHLORIDE 101 mmol/L (98-107)
[2017-04-22 05:42] LABS: ALANINE AMINOTRANSFERASE 32 U/L (12-78); ALBUMIN 3.2 g/dL (3.4-5.0); ALKALINE PHOSPHATASE 73 U/L (45-117); ANION GAP 6 mmol/L (5-15); BILIRUBIN,TOTAL 0.5 mg/dL (0.2-1.0); CALCIUM 8.9 mg/dL (8.5-10.1); TOTAL PROTEIN 6.8 g/dL (6.4-8.2)
[2017-04-22] MEDS: INSULIN LISPRO 100 UNITS/ML, PEN SQ-INSULIN SCH ×4 (07:00→20:32)
[2017-04-22 07:04] VITALS: BP 135/83
[2017-04-22] MEDS ORDERED: MAGNESIUM SULFATE PMX 4GM/100M 100 ML IV ONE (09:00)
[2017-04-22] MEDS: SENNA/DOCUSATE TABLET PO SCH (09:00)
[2017-04-22] MEDS: FLUTICASONE/VILANTEROL 200-25MCG/INH INH SCH (09:32)
[2017-04-22] MEDS: metFORMIN 500 MG TABLET PO SCH ×2 (09:33→20:31)
[2017-04-22] MEDS: FOLIC ACID 1 MG TABLET PO SCH (09:33)
[2017-04-22] MEDS: GABAPENTIN 300 MG CAPSULE PO SCH ×3 (09:33→20:31)
[2017-04-22] MEDS: METOPROLOL TARTRATE 50 MG TABLET PO SCH (09:33)
[2017-04-22] MEDS: SODIUM CHLORIDE FLUSH 10ML SYR IVF SCH ×2 (09:33→20:30)
[2017-04-22] MEDS: LORazepam 0.5MG TABLET PO PRN ×3 (09:34→20:31)
[2017-04-22] MEDS: RIVAROXABAN 20 MG TABLET PO SCH (09:34)
[2017-04-22] MEDS: THIAMINE 100MG TABLET PO SCH (09:34)
[2017-04-22] MEDS: FLUOXETINE HCL 20 MG CAPSULE PO SCH (09:34)
[2017-04-22 13:35] VITALS: BP 117/69
[2017-04-22] MEDS: LORazepam 1MG TABLET PO PRN (17:12)
[2017-04-22 20:27] VITALS: BP 132/93
[2017-04-22] MEDS: ATORVASTATIN 40 MG TABLET PO SCH (20:31)
[2017-04-23 02:24] VITALS: BP 124/80
[2017-04-23 04:49] LABS: ANION GAP 4 mmol/L (5-15); CALCIUM 8.6 mg/dL (8.5-10.1); CHLORIDE 101 mmol/L (98-107); CREATININE 0.94 mg/dL (0.7-1.3)
[2017-04-23 06:53] VITALS: BP 129/84
[2017-04-23] MEDS: INSULIN LISPRO 100 UNITS/ML, PEN SQ-INSULIN SCH ×3 (07:00→16:37)
[2017-04-23] MEDS ORDERED: MAGNESIUM SULFATE PMX 2GM/50ML 50 ML IV ONE (09:00)
[2017-04-23] MEDS: SODIUM CHLORIDE FLUSH 10ML SYR IVF SCH (09:00)
[2017-04-23] MEDS: SENNA/DOCUSATE TABLET PO SCH (09:00)
[2017-04-23] MEDS: FLUTICASONE/VILANTEROL 200-25MCG/INH INH SCH (09:31)
[2017-04-23] MEDS: METOPROLOL TARTRATE 50 MG TABLET PO SCH (09:31)
[2017-04-23] MEDS: metFORMIN 500 MG TABLET PO SCH (09:31)
[2017-04-23] MEDS: GABAPENTIN 300 MG CAPSULE PO SCH ×2 (09:31→17:03)
[2017-04-23] MEDS: THIAMINE 100MG TABLET PO SCH (09:31)
[2017-04-23] MEDS: RIVAROXABAN 20 MG TABLET PO SCH (09:31)
[2017-04-23] MEDS: FOLIC ACID 1 MG TABLET PO SCH (09:31)
[2017-04-23] MEDS: FLUOXETINE HCL 20 MG CAPSULE PO SCH (09:31)
[2017-04-23] MEDS: ACETAMINOPHEN 325 MG TABLET PO PRN (09:42)
[2017-04-23 13:00] VITALS: BP 147/85
[2017-04-23] MEDS: LORazepam 0.5MG TABLET PO PRN (15:38)
[2017-04-23] MEDS ORDERED: GLYB2.5T2 PO (16:28)
== END 2017-04-23 19:17 | DRG 189 ==
LOC: ED 18:21 → EDIP 20:57 → 3NE 22:00
PROVIDERS: ADMIT Family Medicine; ATTEND Family Medicine
DX: J96.21 Acute and chronic respiratory failure with hypoxia (principal); D68.69 Other thrombophilia; E11.40 Type 2 diabetes mellitus with diabetic neuropathy, unspecified; E11.65 Type 2 diabetes mellitus with hyperglycemia; E83.42 Hypomagnesemia; F10.239 Alcohol dependence with withdrawal, unspecified; J44.1 Chronic obstructive pulmonary disease with (acute) exacerbation; J98.11 Atelectasis; G20 Parkinson's disease; E78.5 Hyperlipidemia, unspecified; F32.9 Major depressive disorder, single episode, unspecified; F41.1 Generalized anxiety disorder; I11.0 Hypertensive heart disease with heart failure; I48.91 Unspecified atrial fibrillation; I50.9 Heart failure, unspecified; K74.60 Unspecified cirrhosis of liver; Z59.0 Homelessness; Z79.01 Long term (current) use of anticoagulants; Z79.84 Long term (current) use of oral hypoglycemic drugs; Z86.711 Personal history of pulmonary embolism; Z87.891 Personal history of nicotine dependence; Z91.19 Patient's noncompliance with other medical treatment and regimen; Z99.81 Dependence on supplemental oxygen; Z91.010 Allergy to peanuts
CPT/HCPCS: 36415; 71045; 80048; 80053; 80307; 82040; 82962; 83735; 83880; 84484; 85025; 93005; 94640; 96361; 96374; J2405; J7620; J1815; J2060; J3475; J7030; J7512

== ENCOUNTER 2017-05-11 15:46 | Emergency (ER) | payer MEDICAID ==
[~2017-05-11] VITALS: Ht 185.4 cm; Wt 122.0 kg
[~2017-05-11 15:46] MED LIST changes: +GLYB2.5T2 PO
[2017-05-11 16:05] VITALS: BP 89/53
[2017-05-11] MEDS ORDERED: ALBUTEROL/IPRATROPIUM 2.5MG/0.5MG, 3 ML NPPB ONE (17:00)
[2017-05-11 17:11] LABS: BASOPHILS # (AUTO) 0.06 x10^3/uL (0-0.1); BASOPHILS % (AUTO) 1 % (0-1); EOSINOPHILS # (AUTO) 0.36 x10^3/uL (0-0.4); EOSINOPHILS % (AUTO) 5 % (1-7); LYMPHOCYTES % (AUTO) 25 % (22-44); MD NO; MEAN CORPUSCULAR HEMOGLOBIN 30.8 pg (27.5-34.5); MEAN CORPUSCULAR HGB CONC 33.5 g/dL (33.2-36.2); MEAN PLATELET VOLUME 8.9 fL (7.4-10.4); MONOCYTES # (AUTO) 0.57 x10^3/uL (0.2-0.8); MONOCYTES % (AUTO) 7 % (2-9); NEUTROPHILS # (AUTO) 5.13 x10^3/uL (1.8-6.8); NEUTROPHILS % (AUTO) 63 % (42-75); PLATELET COUNT 205 x10^3/uL (130-400); RED BLOOD COUNT 4.53 x10^6/uL (4.38-5.82); RED CELL DISTRIBUTION WIDTH 15.2 % (9.4-14.8)
[2017-05-11] MEDS ORDERED: ALBUTEROL/IPRATROPIUM 2.5MG/0.5MG, 3 ML ONE (17:11)
[2017-05-11 17:18] LABS: ALBUMIN 3.7 g/dL (3.4-5.0); ANION GAP 9 mmol/L (5-15); CALCIUM 8.6 mg/dL (8.5-10.1); CHLORIDE 111 mmol/L (98-107)
== END 2017-05-11 19:01 | disposition home or self-care (01) ==
LOC: ED 18:33
DX: S01.412A Laceration without foreign body of left cheek and temporomandibular area, initial encounter (principal); E78.5 Hyperlipidemia, unspecified; G20 Parkinson's disease; I48.91 Unspecified atrial fibrillation; J44.9 Chronic obstructive pulmonary disease, unspecified; M19.90 Unspecified osteoarthritis, unspecified site; F10.120 Alcohol abuse with intoxication, uncomplicated; F32.9 Major depressive disorder, single episode, unspecified; F41.9 Anxiety disorder, unspecified; Z79.899 Other long term (current) drug therapy; Z90.49 Acquired absence of other specified parts of digestive tract; W19.XXXA Unspecified fall, initial encounter; Y93.89 Activity, other specified; Y99.8 Other external cause status; Y92.009 Unspecified place in unspecified non-institutional (private) residence as the place of occurrence of the external cause
CPT/HCPCS: 36415; 70450; 71045; 80048; 80307; 82040; 85025; 93005; 94640; 99285; J7620

== ENCOUNTER 2017-06-20 15:35 | Inpatient (IN) | payer MEDICAID ==
[~2017-06-20] VITALS: Ht 185.4 cm; Wt 125.0 kg
[~2017-06-20 15:35] MED LIST changes: -ASPI-770 PO; +ASPI81TA59 PO; +WARF10TA43 PO; -WARF10TA6 PO
[2017-06-20] MEDS ORDERED: SODIUM CHLORIDE FLUSH 10ML SYR IVF ONE (16:00)
[2017-06-20] MEDS ORDERED: LORazepam 2 MG/ML, 1ML IVPush ONE ×2 (16:00→21:30)
[2017-06-20] MEDS ORDERED: PLEASE ENTER HEIGHT AND WEIGHT MC SCH (16:00)
[2017-06-20] MEDS ORDERED: ASPIRIN 81 MG TABLET CHEW PO ONE (16:00)
[2017-06-20] MEDS ORDERED: NITROGLYCERIN SINGLE TAB 0.4 MG SL PRN (16:00)
[2017-06-20 16:26] LABS: BASOPHILS # (AUTO) 0.03 x10^3/uL (0-0.1); BASOPHILS % (AUTO) 0 % (0-1); EOSINOPHILS % (AUTO) 1 % (1-7); LYMPHOCYTES # (AUTO) 2.02 x10^3/uL (1-3.4); LYMPHOCYTES % (AUTO) 15 % (22-44); MD NO; MEAN CORPUSCULAR HEMOGLOBIN 30.5 pg (27.5-34.5); MEAN CORPUSCULAR HGB CONC 33.2 g/dL (33.2-36.2); MEAN CORPUSCULAR VOLUME 91.8 fL (81-97); MONOCYTES # (AUTO) 0.61 x10^3/uL (0.2-0.8); MONOCYTES % (AUTO) 5 % (2-9); NEUTROPHILS # (AUTO) 10.92 x10^3/uL (1.8-6.8); NEUTROPHILS % (AUTO) 80 % (42-75); PLATELET COUNT 288 x10^3/uL (130-400); RED BLOOD COUNT 4.68 x10^6/uL (4.38-5.82); RED CELL DISTRIBUTION WIDTH 15.8 % (9.4-14.8)
[2017-06-20 16:32] LABS: INTERNATIONAL NORMALIZED RATIO 1.03 (0.93-1.1); PROTHROMBIN TIME 10.7 Seconds (9.6-11.5)
[2017-06-20 16:36] LABS: ALANINE AMINOTRANSFERASE 38 U/L (12-78); ALBUMIN 3.9 g/dL (3.4-5.0); ANION GAP 16 mmol/L (5-15); CHLORIDE 105 mmol/L (98-107); CREATININE 1.06 mg/dL (0.7-1.3); SALICYLATE LEVEL 2.4 mg/dL (2.8-20.0)
[2017-06-20 16:41] LABS: ALKALINE PHOSPHATASE 76 U/L (45-117); BILIRUBIN,TOTAL 0.6 mg/dL (0.2-1.0); TOTAL PROTEIN 7.6 g/dL (6.4-8.2); TROPONIN I < 0.015 ng/mL (0.000-0.045)
[2017-06-20 16:43] LABS: ACETAMINOPHEN < 2 mcg/mL (10-30)
[2017-06-20] MEDS ORDERED: NITROGLYCERIN SINGLE TAB 0.4 MG SL ONE (17:19)
[2017-06-20] MEDS ORDERED: LORazepam 2 MG/ML, 1ML ONE ×2 (17:20→21:09)
[2017-06-20] MEDS ORDERED: ASPIRIN 81 MG TABLET CHEW ONE (17:20)
[2017-06-20] MEDS ORDERED: SODIUM CHLORIDE FLUSH 10ML SYR IVF PRN (22:00)
[2017-06-20] MEDS ORDERED: ONDANSETRON ODT 4 MG ONE (22:06)
[2017-06-20 23:22] VITALS: BP 156/110
[2017-06-21] MEDS ORDERED: PARO10OR3 PO (00:05)
[2017-06-21] MEDS ORDERED: OXYC-509 PO (00:08)
[2017-06-21] MEDS ORDERED: TIOT18CA INH (00:09)
[2017-06-21] MEDS ORDERED: MULT-516 PO (00:10)
[2017-06-21 00:18] VITALS: BP 144/80
[2017-06-21] MEDS ORDERED: LORazepam 1MG TABLET PO PRN ×2 (01:30)
[2017-06-21] MEDS ORDERED: LORazepam 2 MG/ML, 1ML IV PRN ×4 (01:30)
[2017-06-21] MEDS ORDERED: SODIUM CHLORIDE 0.9% 1,000 ML IV SCH (01:31)
[2017-06-21 01:32] VITALS: BP 154/96
[2017-06-21] MEDS ORDERED: POLYETHYLENE GLYCOL 17 GM PACKET PO PRN (02:00)
[2017-06-21] MEDS ORDERED: LABETALOL 5MG/ML, 20ML IVPush PRN (02:00)
[2017-06-21] MEDS ORDERED: DOCUSATE 100 MG CAPSULE PO PRN (02:00)
[2017-06-21] MEDS ORDERED: morphine SULFATE 10 MG/ML, 1ML IVPush PRN ×2 (02:00→11:00)
[2017-06-21] MEDS ORDERED: hydrALAzine 20 MG/ML, 1ML IVPush PRN (02:00)
[2017-06-21] MEDS ORDERED: ONDANSETRON ODT 4 MG PO PRN (02:00)
[2017-06-21] MEDS ORDERED: BISACODYL 10 MG SUPP PR PRN (02:00)
[2017-06-21] MEDS ORDERED: PROMETHAZINE 25 MG/ML, 1ML IM PRN (02:00)
[2017-06-21] MEDS ORDERED: ENALAPRILAT 1.25 MG/ML, 2ML IVPush PRN (02:00)
[2017-06-21] MEDS: LORazepam 0.5MG TABLET PO PRN (02:06)
[2017-06-21] MEDS: OXYcodone IR 5MG TABLET PO PRN ×5 (02:06→21:55)
[2017-06-21 02:15] LABS: FREE T4 (FREE THYROXINE) 1.02 ng/dL (0.76-1.46); THYROID STIMULATING HORMONE 0.874 mIU/L (0.358-3.740)
[2017-06-21 02:45] LABS: HEMOGLOBIN A1C 6.8 % (4.2-6.3)
[2017-06-21] MEDS ORDERED: ALBUTEROL SULFATE 2.5 MG/3 ML NPPB PRN (03:00)
[2017-06-21 04:44] LABS: TROPONIN I < 0.015 ng/mL (0.000-0.045)
[2017-06-21] MEDS ORDERED: CALCIUM CARBONATE 500 MG TAB.CHEW ONE (05:17)
[2017-06-21] MEDS: LORazepam 2 MG/ML, 1ML IV PRN ×4 (05:25→20:08)
[2017-06-21] MEDS ORDERED: CALCIUM CARBONATE 500 MG TAB.CHEW PO PRN (05:30)
[2017-06-21] MEDS ORDERED: INSULIN LISPRO 100 UNITS/ML, PEN SQ-INSULIN SCH (07:00)
[2017-06-21 07:08] VITALS: BP 146/86
[2017-06-21] MEDS: THIAMINE 100MG TABLET PO SCH (08:04)
[2017-06-21] MEDS: FLUOXETINE HCL 20 MG CAPSULE PO SCH (08:05)
[2017-06-21] MEDS: RIVAROXABAN 20 MG TABLET PO SCH (08:05)
[2017-06-21] MEDS: MULTIVITAMIN 1 TABLET PO SCH (08:05)
[2017-06-21] MEDS: FOLIC ACID 1 MG TABLET PO SCH (08:06)
[2017-06-21] MEDS ORDERED: CLON0.1T PO (08:11)
[2017-06-21] MEDS ORDERED: METOPROLOL TARTRATE 50 MG TABLET PO SCH (09:00)
[2017-06-21] MEDS ORDERED: IPRATROPIUM 0.5 MG/2.5 ML INHA HHN SCH (09:00)
[2017-06-21] MEDS ORDERED: ALBUTEROL/IPRATROPIUM 2.5MG/0.5MG, 3 ML NPPB SCH (09:00)
[2017-06-21] MEDS ORDERED: IPRATROPIUM 0.5 MG/2.5 ML INHA NPPB SCH (09:00)
[2017-06-21] MEDS ORDERED: ACETAMINOPHEN 325 MG TABLET PO PRN (09:00)
[2017-06-21] MEDS: LACTOBACILLUS CHEW TABLET PO SCH ×3 (09:15→21:55)
[2017-06-21] MEDS: FLUTICASONE/VILANTEROL 200-25MCG/INH INH SCH (09:15)
[2017-06-21 09:18] LABS: TROPONIN I < 0.015 ng/mL (0.000-0.045)
[2017-06-21 10:12] LABS: AMPHETAMINE SCREEN, URINE Negative (Negative); BARBITURATE SCREEN, URINE Negative (Negative); BENZODIAZEPINE SCREEN, URINE Positive (Negative); CANNABINOID SCREEN, URINE Positive (Negative); COCAINE SCREEN, URINE Negative (Negative); METHADONE SCREEN, URINE Negative (Negative); OPIATE SCREEN, URINE Negative (Negative)
[2017-06-21 10:24] LABS: MICROSCOPIC AUTO
[2017-06-21 10:31] LABS: CULTURE INDICATED? NO
[2017-06-21] MEDS ORDERED: REGADENOSON 0.4 MG/5 ML SYRINGE ONE (10:39)
[2017-06-21] MEDS ORDERED: CLON1TAB PO (10:58)
[2017-06-21] MEDS: INSULIN LISPRO 100 UNITS/ML, PEN SQ-INSULIN SCH ×3 (11:25→20:10)
[2017-06-21 13:34] VITALS: BP 124/76
[2017-06-21 16:47] VITALS: BP 131/86
[2017-06-21] MEDS ORDERED: HYDR50TA3 PO (17:13)
[2017-06-21] MEDS: CARVEDILOL 12.5 MG TABLET PO SCH (18:13)
[2017-06-21 18:29] VITALS: BP 129/81
[2017-06-21] MEDS ORDERED: MAGNESIUM SULFATE PMX 4GM/100M 100 ML IV ONE (20:00)
[2017-06-21] MEDS: IPRATROPIUM 0.5 MG/2.5 ML INHA NPPB SCH (20:33)
[2017-06-21] MEDS: DIVALPROEX 250 MG TABLET.DR PO SCH (21:55)
[2017-06-21] MEDS: ATORVASTATIN 40 MG TABLET PO SCH (21:55)
[2017-06-21] MEDS ORDERED: ALBUTEROL/IPRATROPIUM 2.5MG/0.5MG, 3 ML ONE (23:35)
[2017-06-22 00:18] VITALS: BP 145/89
[2017-06-22] MEDS: LORazepam 2 MG/ML, 1ML IV PRN (01:32)
[2017-06-22] MEDS: OXYcodone IR 5MG TABLET PO PRN ×6 (02:27→21:22)
[2017-06-22 04:57] LABS: ALBUMIN 3.1 g/dL (3.4-5.0); CALCIUM 8.9 mg/dL (8.5-10.1)
[2017-06-22 05:07] LABS: ALANINE AMINOTRANSFERASE 31 U/L (12-78); ALKALINE PHOSPHATASE 70 U/L (45-117); ANION GAP 6 mmol/L (5-15); BILIRUBIN,TOTAL 0.5 mg/dL (0.2-1.0); CHLORIDE 100 mmol/L (98-107); CHOL/HDL RATIO 4.1; CHOLESTEROL, TOTAL 154 mg/dL (140-239); CREATININE 0.98 mg/dL (0.7-1.3); HDL CHOL % 25 % (26-37); HDL CHOLESTEROL (DIRECT) 38 mg/dL (40-60); LDL CHOLESTEROL,CALCULATED 49 mg/dL (54-169); LDL/HDL RATIO 1.3 (0.5-3.0); TOTAL PROTEIN 6.3 g/dL (6.4-8.2); TRIGLYCERIDES 334 mg/dL (50-200); VLDL CHOLESTEROL 67 mg/dL (0-25)
[2017-06-22 05:16] LABS: BASOPHILS # (AUTO) 0.04 x10^3/uL (0-0.1); BASOPHILS % (AUTO) 1 % (0-1); EOSINOPHILS # (AUTO) 0.33 x10^3/uL (0-0.4); EOSINOPHILS % (AUTO) 5 % (1-7); LYMPHOCYTES % (AUTO) 28 % (22-44); MD NO; MEAN CORPUSCULAR HEMOGLOBIN 30.5 pg (27.5-34.5); MEAN CORPUSCULAR HGB CONC 33.3 g/dL (33.2-36.2); MEAN CORPUSCULAR VOLUME 91.6 fL (81-97); MONOCYTES # (AUTO) 0.57 x10^3/uL (0.2-0.8); MONOCYTES % (AUTO) 9 % (2-9); NEUTROPHILS # (AUTO) 3.48 x10^3/uL (1.8-6.8); NEUTROPHILS % (AUTO) 57 % (42-75); PLATELET COUNT 208 x10^3/uL (130-400); RED BLOOD COUNT 4.25 x10^6/uL (4.38-5.82); RED CELL DISTRIBUTION WIDTH 15.2 % (9.4-14.8)
[2017-06-22] MEDS: INSULIN LISPRO 100 UNITS/ML, PEN SQ-INSULIN SCH ×4 (07:00→21:21)
[2017-06-22] MEDS: CARVEDILOL 12.5 MG TABLET PO SCH ×2 (07:10→17:15)
[2017-06-22 08:07] VITALS: BP 140/91
[2017-06-22] MEDS: LACTOBACILLUS CHEW TABLET PO SCH ×3 (08:23→21:22)
[2017-06-22] MEDS: THIAMINE 100MG TABLET PO SCH (08:23)
[2017-06-22] MEDS: RIVAROXABAN 20 MG TABLET PO SCH (08:23)
[2017-06-22] MEDS: PAROXETINE 20 MG TABLET PO SCH (08:24)
[2017-06-22] MEDS: MULTIVITAMIN 1 TABLET PO SCH (08:24)
[2017-06-22] MEDS: FLUOXETINE HCL 20 MG CAPSULE PO SCH (08:24)
[2017-06-22] MEDS: FOLIC ACID 1 MG TABLET PO SCH (08:24)
[2017-06-22] MEDS: FLUTICASONE/VILANTEROL 200-25MCG/INH INH SCH (08:25)
[2017-06-22] MEDS: DIVALPROEX 250 MG TABLET.DR PO SCH ×2 (08:39→21:22)
[2017-06-22] MEDS: SODIUM CHLORIDE 0.9% 1,000 ML IV SCH ×2 (08:39→23:01)
[2017-06-22] MEDS: IPRATROPIUM 0.5 MG/2.5 ML INHA NPPB SCH ×2 (11:00→21:30)
[2017-06-22 14:42] VITALS: BP 119/79
[2017-06-22 19:51] VITALS: BP 147/99
[2017-06-22] MEDS: ATORVASTATIN 40 MG TABLET PO SCH (21:21)
[2017-06-23 00:28] VITALS: BP 135/88
[2017-06-23] MEDS: LORazepam 0.5MG TABLET PO PRN ×3 (00:52→04:52)
[2017-06-23] MEDS: OXYcodone IR 5MG TABLET PO PRN ×3 (01:44→21:20)
[2017-06-23 06:14] VITALS: BP 137/89
[2017-06-23] MEDS: CARVEDILOL 12.5 MG TABLET PO SCH ×2 (06:15→18:15)
[2017-06-23] MEDS: INSULIN LISPRO 100 UNITS/ML, PEN SQ-INSULIN SCH ×4 (07:00→21:00)
[2017-06-23 08:58] VITALS: BP 134/91
[2017-06-23] MEDS: PAROXETINE 20 MG TABLET PO SCH (08:59)
[2017-06-23] MEDS: FOLIC ACID 1 MG TABLET PO SCH (09:00)
[2017-06-23] MEDS: LACTOBACILLUS CHEW TABLET PO SCH ×3 (09:00→21:20)
[2017-06-23] MEDS: LORazepam 1MG TABLET PO PRN ×5 (09:00→18:13)
[2017-06-23] MEDS: IPRATROPIUM 0.5 MG/2.5 ML INHA NPPB SCH ×2 (09:00→22:00)
[2017-06-23] MEDS: FLUOXETINE HCL 20 MG CAPSULE PO SCH (09:01)
[2017-06-23] MEDS: ISOSORBIDE DINITRATE 10 MG TABLET PO SCH ×3 (09:01→21:00)
[2017-06-23] MEDS: RIVAROXABAN 20 MG TABLET PO SCH (09:01)
[2017-06-23] MEDS: MULTIVITAMIN 1 TABLET PO SCH (09:01)
[2017-06-23] MEDS: THIAMINE 100MG TABLET PO SCH (09:02)
[2017-06-23] MEDS: FLUTICASONE/VILANTEROL 200-25MCG/INH INH SCH (09:02)
[2017-06-23] MEDS: DIVALPROEX 250 MG TABLET.DR PO SCH ×2 (10:47→21:20)
[2017-06-23 15:57] VITALS: BP 124/78
[2017-06-23 18:00] VITALS: BP 122/65
[2017-06-23] MEDS: FAMOTIDINE 20 MG TABLET PO SCH (21:20)
[2017-06-23] MEDS: ATORVASTATIN 40 MG TABLET PO SCH (21:20)
[2017-06-24 00:46] VITALS: BP 154/97
[2017-06-24] MEDS: LORazepam 0.5MG TABLET PO PRN ×4 (01:22→21:23)
[2017-06-24] MEDS: OXYcodone IR 5MG TABLET PO PRN ×6 (01:22→22:50)
[2017-06-24] MEDS: LORazepam 1MG TABLET PO PRN (05:44)
[2017-06-24] MEDS: CARVEDILOL 12.5 MG TABLET PO SCH (05:45)
[2017-06-24] MEDS: INSULIN LISPRO 100 UNITS/ML, PEN SQ-INSULIN SCH ×4 (07:00→21:00)
[2017-06-24 07:27] VITALS: BP 146/98
[2017-06-24] MEDS: IPRATROPIUM 0.5 MG/2.5 ML INHA NPPB SCH ×2 (07:50→19:35)
[2017-06-24] MEDS: LACTOBACILLUS CHEW TABLET PO SCH ×3 (09:22→21:21)
[2017-06-24] MEDS: THIAMINE 100MG TABLET PO SCH (09:22)
[2017-06-24] MEDS: ISOSORBIDE DINITRATE 10 MG TABLET PO SCH ×3 (09:22→21:22)
[2017-06-24] MEDS: PAROXETINE 20 MG TABLET PO SCH (09:22)
[2017-06-24] MEDS: FAMOTIDINE 20 MG TABLET PO SCH ×2 (09:22→21:21)
[2017-06-24] MEDS: FLUOXETINE HCL 20 MG CAPSULE PO SCH (09:22)
[2017-06-24] MEDS: FOLIC ACID 1 MG TABLET PO SCH (09:22)
[2017-06-24] MEDS: MULTIVITAMIN 1 TABLET PO SCH (09:23)
[2017-06-24] MEDS: RIVAROXABAN 20 MG TABLET PO SCH (09:37)
[2017-06-24] MEDS: FLUTICASONE/VILANTEROL 200-25MCG/INH INH SCH (09:37)
[2017-06-24] MEDS: DIVALPROEX 250 MG TABLET.DR PO SCH ×2 (09:37→21:00)
[2017-06-24] MEDS: SODIUM CHLORIDE 0.9% 1,000 ML IV SCH (09:40)
[2017-06-24 14:12] VITALS: BP 149/92
[2017-06-24] MEDS: CARVEDILOL 6.25 MG TABLET PO SCH (17:33)
[2017-06-24 19:05] VITALS: BP 130/91
[2017-06-24] MEDS: ATORVASTATIN 40 MG TABLET PO SCH (21:21)
[2017-06-25 02:08] VITALS: BP 152/93
[2017-06-25] MEDS: SODIUM CHLORIDE 0.9% 1,000 ML IV SCH ×2 (02:42→18:46)
[2017-06-25] MEDS: OXYcodone IR 5MG TABLET PO PRN ×5 (04:20→21:21)
[2017-06-25] MEDS: CARVEDILOL 6.25 MG TABLET PO SCH ×2 (05:44→18:22)
[2017-06-25] MEDS: INSULIN LISPRO 100 UNITS/ML, PEN SQ-INSULIN SCH ×4 (07:00→21:00)
[2017-06-25 07:29] VITALS: BP 151/99
[2017-06-25] MEDS ORDERED: ALBUTEROL/IPRATROPIUM 2.5MG/0.5MG, 3 ML NPPB PRN (08:00)
[2017-06-25] MEDS: DIVALPROEX 250 MG TABLET.DR PO SCH ×2 (09:00→21:00)
[2017-06-25] MEDS: IPRATROPIUM 0.5 MG/2.5 ML INHA NPPB SCH ×2 (09:00→20:34)
[2017-06-25] MEDS: FLUOXETINE HCL 20 MG CAPSULE PO SCH ×2 (09:00→09:52)
[2017-06-25] MEDS: THIAMINE 100MG TABLET PO SCH (09:52)
[2017-06-25] MEDS: FAMOTIDINE 20 MG TABLET PO SCH ×2 (09:54→21:25)
[2017-06-25] MEDS: MULTIVITAMIN 1 TABLET PO SCH (09:54)
[2017-06-25] MEDS: FOLIC ACID 1 MG TABLET PO SCH (09:54)
[2017-06-25] MEDS: ISOSORBIDE DINITRATE 20 MG TABLET PO SCH ×3 (09:54→21:25)
[2017-06-25] MEDS: RIVAROXABAN 20 MG TABLET PO SCH (09:54)
[2017-06-25] MEDS: PAROXETINE 20 MG TABLET PO SCH (09:55)
[2017-06-25] MEDS: LACTOBACILLUS CHEW TABLET PO SCH ×3 (09:56→21:24)
[2017-06-25] MEDS: FLUTICASONE/VILANTEROL 200-25MCG/INH INH SCH (10:12)
[2017-06-25] MEDS ORDERED: ISOS20TA58 PO (10:21)
[2017-06-25] MEDS ORDERED: HYDR-3342 PO (10:21)
[2017-06-25] MEDS ORDERED: ACID1TAB7 PO (10:21)
[2017-06-25] MEDS ORDERED: CARV6.2512 PO (10:21)
[2017-06-25 12:52] VITALS: BP 114/71
[2017-06-25] MEDS: LORazepam 0.5MG TABLET PO PRN (14:11)
[2017-06-25 18:21] VITALS: BP 121/78
[2017-06-25 20:28] VITALS: BP 129/79
[2017-06-25] MEDS ORDERED: AMOXICILLIN 500 MG CAPSULE PO SCH (21:00)
[2017-06-25] MEDS: ATORVASTATIN 40 MG TABLET PO SCH (21:25)
[2017-06-26] MEDS: OXYcodone IR 5MG TABLET PO PRN ×6 (01:24→23:42)
[2017-06-26 01:59] VITALS: BP 129/72
[2017-06-26] MEDS: CARVEDILOL 6.25 MG TABLET PO SCH ×2 (06:09→17:57)
[2017-06-26 06:35] VITALS: BP 134/93
[2017-06-26] MEDS: IPRATROPIUM 0.5 MG/2.5 ML INHA NPPB SCH ×2 (06:41→20:45)
[2017-06-26] MEDS: INSULIN LISPRO 100 UNITS/ML, PEN SQ-INSULIN SCH ×4 (07:00→20:57)
[2017-06-26 08:00] LABS: ANION GAP 8 mmol/L (5-15); CALCIUM 8.8 mg/dL (8.5-10.1); CHLORIDE 103 mmol/L (98-107); CREATININE 0.95 mg/dL (0.7-1.3)
[2017-06-26] MEDS: FLUTICASONE/VILANTEROL 200-25MCG/INH INH SCH (08:05)
[2017-06-26] MEDS: LACTOBACILLUS CHEW TABLET PO SCH ×3 (08:05→20:32)
[2017-06-26] MEDS: DIVALPROEX 250 MG TABLET.DR PO SCH ×2 (08:05→20:33)
[2017-06-26] MEDS: ISOSORBIDE DINITRATE 20 MG TABLET PO SCH ×3 (08:06→20:32)
[2017-06-26] MEDS: RIVAROXABAN 20 MG TABLET PO SCH (08:06)
[2017-06-26] MEDS: MULTIVITAMIN 1 TABLET PO SCH (08:06)
[2017-06-26] MEDS: PAROXETINE 20 MG TABLET PO SCH (08:06)
[2017-06-26] MEDS: FAMOTIDINE 20 MG TABLET PO SCH ×2 (08:06→20:32)
[2017-06-26] MEDS: FOLIC ACID 1 MG TABLET PO SCH (08:06)
[2017-06-26] MEDS: THIAMINE 100MG TABLET PO SCH (08:06)
[2017-06-26] MEDS: FLUOXETINE HCL 20 MG CAPSULE PO SCH (08:06)
[2017-06-26 08:08] LABS: BASOPHILS # (AUTO) 0.02 x10^3/uL (0-0.1); BASOPHILS % (AUTO) 0 % (0-1); EOSINOPHILS % (AUTO) 9 % (1-7); LYMPHOCYTES % (AUTO) 23 % (22-44); MD NO; MEAN CORPUSCULAR HEMOGLOBIN 30.3 pg (27.5-34.5); MEAN CORPUSCULAR HGB CONC 33.3 g/dL (33.2-36.2); MEAN CORPUSCULAR VOLUME 91.2 fL (81-97); MEAN PLATELET VOLUME 8.1 fL (7.4-10.4); MONOCYTES # (AUTO) 0.67 x10^3/uL (0.2-0.8); MONOCYTES % (AUTO) 9 % (2-9); NEUTROPHILS # (AUTO) 4.51 x10^3/uL (1.8-6.8); NEUTROPHILS % (AUTO) 59 % (42-75); PLATELET COUNT 175 x10^3/uL (130-400); RED BLOOD COUNT 4.46 x10^6/uL (4.38-5.82); RED CELL DISTRIBUTION WIDTH 15.3 % (9.4-14.8)
[2017-06-26] MEDS: CEFTRIAXONE PMX 2GM/50ML 50 ML IV SCH (08:43)
[2017-06-26] MEDS ORDERED: DOXYCYCLINE 100MG TABLET PO SCH (09:00)
[2017-06-26] MEDS: DOXYCYCLINE 100 MG in DEXTROSE 5% 250 ML IV SCH ×2 (10:16→18:30)
[2017-06-26 12:17] VITALS: BP 129/84
[2017-06-26] MEDS: GUAIFENESIN ER 600 MG TABLET PO SCH ×2 (13:36→20:32)
[2017-06-26] MEDS: methylPREDNISolone SOD SUCC 125 MG/2 ML IVPush SCH ×2 (13:36→23:42)
[2017-06-26] MEDS: SODIUM CHLORIDE 0.9% 1,000 ML IV SCH (16:32)
[2017-06-26 19:04] VITALS: BP 143/75
[2017-06-26] MEDS: ATORVASTATIN 40 MG TABLET PO SCH (20:33)
[2017-06-27 02:06] VITALS: BP 159/83
[2017-06-27] MEDS: OXYcodone IR 5MG TABLET PO PRN ×4 (03:47→16:27)
[2017-06-27 05:40] LABS: BASOPHILS # (AUTO) 0.02 x10^3/uL (0-0.1); BASOPHILS % (AUTO) 0 % (0-1); EOSINOPHILS % (AUTO) 0 % (1-7); LYMPHOCYTES # (AUTO) 1.06 x10^3/uL (1-3.4); LYMPHOCYTES % (AUTO) 12 % (22-44); MD NO; MEAN CORPUSCULAR HEMOGLOBIN 30.3 pg (27.5-34.5); MEAN CORPUSCULAR VOLUME 91.9 fL (81-97); MEAN PLATELET VOLUME 8.8 fL (7.4-10.4); MONOCYTES # (AUTO) 0.11 x10^3/uL (0.2-0.8); MONOCYTES % (AUTO) 1 % (2-9); NEUTROPHILS # (AUTO) 7.55 x10^3/uL (1.8-6.8); NEUTROPHILS % (AUTO) 86 % (42-75); PLATELET COUNT 198 x10^3/uL (130-400); RED CELL DISTRIBUTION WIDTH 15.1 % (9.4-14.8)
[2017-06-27 05:55] LABS: ANION GAP 9 mmol/L (5-15); CALCIUM 8.7 mg/dL (8.5-10.1); CHLORIDE 102 mmol/L (98-107)
[2017-06-27 05:56] LABS: CREATININE 1.15 mg/dL (0.7-1.3)
[2017-06-27] MEDS: CARVEDILOL 6.25 MG TABLET PO SCH ×2 (06:04→17:14)
[2017-06-27] MEDS: DOXYCYCLINE 100 MG in DEXTROSE 5% 250 ML IV SCH ×2 (06:05→07:30)
[2017-06-27] MEDS: SODIUM CHLORIDE 0.9% 1,000 ML IV SCH (06:28)
[2017-06-27 06:48] VITALS: BP 167/94
[2017-06-27] MEDS: IPRATROPIUM 0.5 MG/2.5 ML INHA NPPB SCH (07:12)
[2017-06-27] MEDS: CEFTRIAXONE PMX 2GM/50ML 50 ML IV SCH (07:30)
[2017-06-27] MEDS: FUROSEMIDE 20 MG/2 ML IV ONE ×2 (08:00→08:12)
[2017-06-27] MEDS: INSULIN LISPRO 100 UNITS/ML, PEN SQ-INSULIN SCH ×3 (08:08→17:15)
[2017-06-27] MEDS: LACTOBACILLUS CHEW TABLET PO SCH ×2 (08:10→16:26)
[2017-06-27] MEDS: FAMOTIDINE 20 MG TABLET PO SCH (08:10)
[2017-06-27] MEDS: RIVAROXABAN 20 MG TABLET PO SCH (08:10)
[2017-06-27] MEDS: FOLIC ACID 1 MG TABLET PO SCH (08:10)
[2017-06-27] MEDS: FLUOXETINE HCL 20 MG CAPSULE PO SCH (08:10)
[2017-06-27] MEDS: DIVALPROEX 250 MG TABLET.DR PO SCH (08:10)
[2017-06-27] MEDS: PAROXETINE 20 MG TABLET PO SCH (08:10)
[2017-06-27] MEDS: GUAIFENESIN ER 600 MG TABLET PO SCH (08:10)
[2017-06-27] MEDS: ISOSORBIDE DINITRATE 20 MG TABLET PO SCH ×2 (08:11→16:26)
[2017-06-27] MEDS: THIAMINE 100MG TABLET PO SCH (08:11)
[2017-06-27] MEDS: MULTIVITAMIN 1 TABLET PO SCH (08:11)
[2017-06-27] MEDS: FLUTICASONE/VILANTEROL 200-25MCG/INH INH SCH (08:12)
[2017-06-27] MEDS ORDERED: DOXYCYCLINE 100MG TABLET PO SCH (09:00)
[2017-06-27] MEDS ORDERED: CEFDINIR 300 MG CAPSULE PO SCH (09:00)
[2017-06-27] MEDS ORDERED: FUROSEMIDE 20 MG TABLET PO SCH (09:00)
[2017-06-27] MEDS ORDERED: CEFD300C37 PO (12:58)
[2017-06-27] MEDS ORDERED: DOXY100T PO (12:58)
[2017-06-27] MEDS ORDERED: PRED20TA PO (12:58)
[2017-06-27 13:16] VITALS: BP 137/84
[2017-06-27 16:24] VITALS: BP 160/89
== END 2017-06-27 18:14 | disposition home or self-care (01) | DRG 190 ==
LOC: ED 21:37 → EDIP 21:56 → 5SO 23:16 → 4EST 06-24 10:15
PROVIDERS: ADMIT Internal Medicine; ATTEND Internal Medicine
DX: J44.0 Chronic obstructive pulmonary disease with (acute) lower respiratory infection (principal); J18.9 Pneumonia, unspecified organism; J96.10 Chronic respiratory failure, unspecified whether with hypoxia or hypercapnia; D68.59 Other primary thrombophilia; G20 Parkinson's disease; I11.0 Hypertensive heart disease with heart failure; E83.42 Hypomagnesemia; R45.851 Suicidal ideations; I50.9 Heart failure, unspecified; K70.10 Alcoholic hepatitis without ascites; J44.1 Chronic obstructive pulmonary disease with (acute) exacerbation; Z99.81 Dependence on supplemental oxygen; I48.2 Chronic atrial fibrillation; Z51.5 Encounter for palliative care; F10.220 Alcohol dependence with intoxication, uncomplicated; E78.5 Hyperlipidemia, unspecified; E66.9 Obesity, unspecified; F41.1 Generalized anxiety disorder; G47.30 Sleep apnea, unspecified; K74.60 Unspecified cirrhosis of liver; E11.9 Type 2 diabetes mellitus without complications; F32.9 Major depressive disorder, single episode, unspecified; Z91.14 Patient's other noncompliance with medication regimen; Z91.81 History of falling; Z91.19 Patient's noncompliance with other medical treatment and regimen; Z87.891 Personal history of nicotine dependence; Z79.82 Long term (current) use of aspirin; Z86.711 Personal history of pulmonary embolism
CPT/HCPCS: 36415; 71045; 71046; 78452; 80048; 80053; 80061; 80307; 80329; 81001; 82962; 83036; 83735; 83880; 84439; 84443; 84484; 85025; 85610; 85730; 93005; 93017; 94640; 96374; 96375; J0696; J2785; J7060; J7613; J7620; J7644; A9502; C9898; G0480; J1815; J1940; J2060; J2930; J3475; J7030; J7512

== ENCOUNTER 2017-07-15 22:05 | Emergency (ER) | payer MEDICAID ==
[~2017-07-15] VITALS: Ht 185.4 cm; Wt 130.0 kg
[~2017-07-15 22:05] MED LIST changes: +ACID1TAB7 PO; +CARV6.2512 PO; +CEFD300C37 PO; +CLON0.1T PO; +CLON1TAB PO; +DOXY100T PO; +HYDR50TA3 PO; +ISOS20TA58 PO; +MULT-516 PO; +OXYC-509 PO; +PARO10OR3 PO
[2017-07-15 22:08] VITALS: BP 108/64
[2017-07-15] MEDS ORDERED: KETOROLAC 30 MG/1 ML ONE (22:29)
[2017-07-15] MEDS ORDERED: HYDROcodone/APAP 5/325 TABLET ONE (22:29)
[2017-07-15] MEDS ORDERED: HYDROcodone/APAP 5/325 TABLET PO ONE (22:30)
[2017-07-15] MEDS ORDERED: DIAZEPAM 5 MG TABLET ONE (22:30)
[2017-07-15] MEDS ORDERED: KETOROLAC 30 MG/1 ML IM ONE (22:30)
[2017-07-15] MEDS ORDERED: DIAZEPAM 5 MG TABLET PO ONE (22:30)
== END 2017-07-15 23:27 | disposition home or self-care (01) ==
LOC: ED 22:10
DX: S39.012A Strain of muscle, fascia and tendon of lower back, initial encounter (principal); E11.65 Type 2 diabetes mellitus with hyperglycemia; E78.5 Hyperlipidemia, unspecified; J43.9 Emphysema, unspecified; I48.91 Unspecified atrial fibrillation; M19.90 Unspecified osteoarthritis, unspecified site; G20 Parkinson's disease; I11.0 Hypertensive heart disease with heart failure; I50.9 Heart failure, unspecified; K74.60 Unspecified cirrhosis of liver; Z86.711 Personal history of pulmonary embolism; Z90.49 Acquired absence of other specified parts of digestive tract; Z85.038 Personal history of other malignant neoplasm of large intestine; X58.XXXA Exposure to other specified factors, initial encounter; Y93.89 Activity, other specified; Y92.89 Other specified places as the place of occurrence of the external cause; Y99.8 Other external cause status
CPT/HCPCS: 96372; 99283; J1885

== ENCOUNTER 2017-08-04 18:29 | Emergency (ER) | payer MEDICAID ==
[~2017-08-04] VITALS: Ht 185.4 cm; Wt 123.0 kg
[2017-08-04] MEDS ORDERED: ASPIRIN 81 MG TABLET CHEW ONE (19:21)
[2017-08-04 19:24] LABS: BASOPHILS # (AUTO) 0.08 x10^3/uL (0-0.1); BASOPHILS % (AUTO) 1 % (0-1); EOSINOPHILS # (AUTO) 0.76 x10^3/uL (0-0.4); EOSINOPHILS % (AUTO) 10 % (1-7); LYMPHOCYTES # (AUTO) 2.67 x10^3/uL (1-3.4); LYMPHOCYTES % (AUTO) 34 % (22-44); MD NO; MEAN CORPUSCULAR HEMOGLOBIN 29.8 pg (27.5-34.5); MEAN CORPUSCULAR HGB CONC 33.4 g/dL (33.2-36.2); MEAN CORPUSCULAR VOLUME 89.1 fL (81-97); MEAN PLATELET VOLUME 8.1 fL (7.4-10.4); MONOCYTES % (AUTO) 5 % (2-9); NEUTROPHILS # (AUTO) 3.87 x10^3/uL (1.8-6.8); NEUTROPHILS % (AUTO) 50 % (42-75); PLATELET COUNT 246 x10^3/uL (130-400); RED BLOOD COUNT 4.82 x10^6/uL (4.38-5.82); RED CELL DISTRIBUTION WIDTH 15.1 % (9.4-14.8)
[2017-08-04] MEDS ORDERED: NITROGLYCERIN SINGLE TAB 0.4 MG SL PRN (19:30)
[2017-08-04] MEDS ORDERED: ASPIRIN 81 MG TABLET CHEW PO ONE (19:30)
[2017-08-04] MEDS ORDERED: SODIUM CHLORIDE FLUSH 10ML SYR IVF ONE (19:30)
[2017-08-04 19:36] LABS: ALANINE AMINOTRANSFERASE 38 U/L (12-78); ALBUMIN 3.7 g/dL (3.4-5.0); ANION GAP 7 mmol/L (5-15); CHLORIDE 104 mmol/L (98-107); CREATININE 0.99 mg/dL (0.7-1.3)
[2017-08-04 19:40] LABS: ALKALINE PHOSPHATASE 71 U/L (45-117); BILIRUBIN,TOTAL 0.3 mg/dL (0.2-1.0); TOTAL PROTEIN 7.5 g/dL (6.4-8.2); TROPONIN I < 0.015 ng/mL (0.000-0.045)
[2017-08-04] MEDS ORDERED: LIDOCAINE 2%, 20ML SQ ONE (20:00)
[2017-08-04] MEDS ORDERED: PARO40TA61 PO (20:21)
[2017-08-04] MEDS ORDERED: METOPROLOL PO (20:21)
[2017-08-04] MEDS ORDERED: LIDOCAINE-MPF 2% ,5ML ONE (20:54)
[2017-08-04 21:03] VITALS: BP 109/50
[2017-08-04] MEDS ORDERED: IBUPROFEN 200 MG TABLET ONE (21:08)
[2017-08-04] MEDS ORDERED: IBUPROFEN 200 MG TABLET PO ONE (21:30)
== END 2017-08-04 21:43 | disposition left against medical advice (07) ==
LOC: ED 20:56
DX: S01.01XA Laceration without foreign body of scalp, initial encounter (principal); R07.2 Precordial pain; R60.0 Localized edema; F10.229 Alcohol dependence with intoxication, unspecified; W19.XXXA Unspecified fall, initial encounter; Y93.89 Activity, other specified; Y99.8 Other external cause status; Y92.89 Other specified places as the place of occurrence of the external cause
CPT/HCPCS: 12032; 36415; 70450; 71045; 72125; 80053; 83690; 83880; 84484; 85025; 93005; 99285; J3490

== ENCOUNTER 2017-09-03 14:44 | Emergency (ER) | payer MEDICAID ==
[~2017-09-03] VITALS: Ht 185.4 cm; Wt 123.9 kg
[~2017-09-03 14:44] MED LIST changes: -METF500T4 PO; +METF500T5 PO; +METOPROLOL PO; +PARO40TA61 PO
[2017-09-03 15:34] LABS: BASOPHILS # (AUTO) 0.08 x10^3/uL (0-0.1); BASOPHILS % (AUTO) 1 % (0-1); EOSINOPHILS # (AUTO) 0.52 x10^3/uL (0-0.4); EOSINOPHILS % (AUTO) 6 % (1-7); LYMPHOCYTES # (AUTO) 2.12 x10^3/uL (1-3.4); LYMPHOCYTES % (AUTO) 23 % (22-44); MD NO; MEAN CORPUSCULAR HEMOGLOBIN 30.5 pg (27.5-34.5); MEAN CORPUSCULAR HGB CONC 33.7 g/dL (33.2-36.2); MEAN CORPUSCULAR VOLUME 90.6 fL (81-97); MONOCYTES % (AUTO) 6 % (2-9); NEUTROPHILS # (AUTO) 5.86 x10^3/uL (1.8-6.8); NEUTROPHILS % (AUTO) 65 % (42-75); PLATELET COUNT 262 x10^3/uL (130-400); RED CELL DISTRIBUTION WIDTH 15.5 % (9.4-14.8)
[2017-09-03 15:43] LABS: ALANINE AMINOTRANSFERASE 54 U/L (12-78); ALBUMIN 3.5 g/dL (3.4-5.0); ANION GAP 7 mmol/L (5-15); CALCIUM 8.9 mg/dL (8.5-10.1); CHLORIDE 107 mmol/L (98-107); CREATININE 0.89 mg/dL (0.7-1.3)
[2017-09-03 15:45] LABS: ALKALINE PHOSPHATASE 98 U/L (45-117); BILIRUBIN,TOTAL 0.7 mg/dL (0.2-1.0); TOTAL PROTEIN 7.2 g/dL (6.4-8.2)
[2017-09-03] MEDS ORDERED: ALBUTEROL/IPRATROPIUM 2.5MG/0.5MG, 3 ML NPPB ONE (16:00)
[2017-09-03] MEDS ORDERED: OXYcodone/APAP 10/325MG TABLET PO ONE (16:00)
[2017-09-03] MEDS ORDERED: OXYcodone/APAP 5/325MG TABLET ONE (16:05)
[2017-09-03] MEDS ORDERED: OXYcodone/APAP 10/325MG TABLET ONE (16:08)
[2017-09-03 16:15] VITALS: BP 127/75
[2017-09-03] MEDS ORDERED: ALBUTEROL/IPRATROPIUM 2.5MG/0.5MG, 3 ML ONE (16:25)
== END 2017-09-03 17:30 | disposition home or self-care (01) ==
LOC: ED 17:20
DX: M54.16 Radiculopathy, lumbar region (principal); Z48.02 Encounter for removal of sutures; I11.0 Hypertensive heart disease with heart failure; I50.9 Heart failure, unspecified; E11.9 Type 2 diabetes mellitus without complications; J44.9 Chronic obstructive pulmonary disease, unspecified; I48.91 Unspecified atrial fibrillation; F32.9 Major depressive disorder, single episode, unspecified; F41.9 Anxiety disorder, unspecified; J45.909 Unspecified asthma, uncomplicated
CPT/HCPCS: 36415; 71045; 80053; 83690; 83880; 85025; 93005; 94640; 99285; J7620

== ENCOUNTER 2017-10-03 16:25 | Emergency (ER) | payer MEDICAID ==
[~2017-10-03] VITALS: Ht 185.4 cm; Wt 125.0 kg
[~2017-10-03 16:25] MED LIST changes: -CLON-365 PO; +CLON1TAB4 PO; -THIA100T6 PO; +THIA100T67 PO; +TRAZ-136 PO; -TRAZ50TA18 PO
[2017-10-03 16:54] LABS: BASOPHILS # (AUTO) 0.11 x10^3/uL (0-0.1); BASOPHILS % (AUTO) 2 % (0-1); EOSINOPHILS % (AUTO) 6 % (1-7); LYMPHOCYTES # (AUTO) 1.74 x10^3/uL (1-3.4); LYMPHOCYTES % (AUTO) 26 % (22-44); MD NO; MEAN CORPUSCULAR HEMOGLOBIN 30.4 pg (27.5-34.5); MEAN CORPUSCULAR HGB CONC 33.5 g/dL (33.2-36.2); MEAN CORPUSCULAR VOLUME 90.7 fL (81-97); MEAN PLATELET VOLUME 8.3 fL (7.4-10.4); MONOCYTES % (AUTO) 6 % (2-9); NEUTROPHILS # (AUTO) 4.03 x10^3/uL (1.8-6.8); NEUTROPHILS % (AUTO) 60 % (42-75); PLATELET COUNT 219 x10^3/uL (130-400); RED BLOOD COUNT 4.55 x10^6/uL (4.38-5.82); RED CELL DISTRIBUTION WIDTH 15.4 % (9.4-14.8)
[2017-10-03 17:05] LABS: ALANINE AMINOTRANSFERASE 29 U/L (12-78); ALBUMIN 3.6 g/dL (3.4-5.0); ANION GAP 6 mmol/L (5-15); CALCIUM 8.5 mg/dL (8.5-10.1); CHLORIDE 108 mmol/L (98-107)
[2017-10-03 17:10] LABS: ALKALINE PHOSPHATASE 77 U/L (45-117); BILIRUBIN,TOTAL 0.5 mg/dL (0.2-1.0); TOTAL PROTEIN 7.1 g/dL (6.4-8.2); TROPONIN I < 0.015 ng/mL (0.000-0.045)
[2017-10-03] MEDS ORDERED: VANC250C12 PO (17:32)
[2017-10-03 18:20] VITALS: BP 138/69
== END 2017-10-03 18:51 | disposition home or self-care (01) ==
LOC: ED 17:44
DX: S20.212A Contusion of left front wall of thorax, initial encounter (principal); W18.39XA Other fall on same level, initial encounter; Y93.89 Activity, other specified; Y92.098 Other place in other non-institutional residence as the place of occurrence of the external cause; Y99.8 Other external cause status
CPT/HCPCS: 36415; 71045; 80053; 84484; 85025; 93005; 99285

== ENCOUNTER 2017-11-09 05:12 | Inpatient (IN) | payer MEDICAID ==
[~2017-11-09] VITALS: Ht 185.4 cm; Wt 116.0 kg
[~2017-11-09 05:12] MED LIST changes: -AMLO5TAB2 PO; +AMLO5TAB7 PO; +METF500T17 PO; -METF500T5 PO; -OXCA150T PO; +OXCA150T18 PO; -SENN1TAB7 PO; +SENN1TAB8 PO; +VANC250C12 PO
[2017-11-09] MEDS ORDERED: CHLORDIAZEPOXIDE 10 MG CAPSULE PO ONE (06:00)
[2017-11-09] MEDS ORDERED: CHLORDIAZEPOXIDE 10 MG CAPSULE ONE (06:05)
[2017-11-09] MEDS ORDERED: ZIPRASIDONE 20MG CAPSULE ONE (07:25)
[2017-11-09] MEDS ORDERED: ZIPRASIDONE 20MG CAPSULE PO ONE (07:30)
[2017-11-09 07:32] LABS: BASOPHILS # (AUTO) 0.15 x10^3/uL (0-0.1); BASOPHILS % (AUTO) 1 % (0-1); EOSINOPHILS # (AUTO) 0.22 x10^3/uL (0-0.4); EOSINOPHILS % (AUTO) 2 % (1-7); LYMPHOCYTES # (AUTO) 1.59 x10^3/uL (1-3.4); LYMPHOCYTES % (AUTO) 12 % (22-44); MD NO; MEAN CORPUSCULAR HEMOGLOBIN 29.7 pg (27.5-34.5); MEAN CORPUSCULAR HGB CONC 32.8 g/dL (33.2-36.2); MEAN CORPUSCULAR VOLUME 90.5 fL (81-97); MEAN PLATELET VOLUME 9.2 fL (7.4-10.4); MONOCYTES # (AUTO) 0.64 x10^3/uL (0.2-0.8); MONOCYTES % (AUTO) 5 % (2-9); NEUTROPHILS # (AUTO) 10.71 x10^3/uL (1.8-6.8); NEUTROPHILS % (AUTO) 81 % (42-75); PLATELET COUNT 224 x10^3/uL (130-400); RED BLOOD COUNT 5.29 x10^6/uL (4.38-5.82); RED CELL DISTRIBUTION WIDTH 14.6 % (9.4-14.8)
[2017-11-09 07:43] LABS: ALANINE AMINOTRANSFERASE 45 U/L (12-78); ALBUMIN 4.4 g/dL (3.4-5.0); ANION GAP 10 mmol/L (5-15); CALCIUM 9.6 mg/dL (8.5-10.1); CHLORIDE 100 mmol/L (98-107); SALICYLATE LEVEL < 1.7 mg/dL (2.8-20.0)
[2017-11-09 07:45] LABS: ACETAMINOPHEN < 2 mcg/mL (10-30); ALKALINE PHOSPHATASE 94 U/L (45-117); BILIRUBIN,TOTAL 1.2 mg/dL (0.2-1.0); CREATININE 0.92 mg/dL (0.7-1.3); TOTAL PROTEIN 8.1 g/dL (6.4-8.2)
[2017-11-09 11:16] LABS: AMPHETAMINE SCREEN, URINE Negative (Negative); BARBITURATE SCREEN, URINE Negative (Negative); BENZODIAZEPINE SCREEN, URINE Negative (Negative); CANNABINOID SCREEN, URINE Negative (Negative); COCAINE SCREEN, URINE Negative (Negative); METHADONE SCREEN, URINE Negative (Negative); OPIATE SCREEN, URINE Negative (Negative)
[2017-11-09] MEDS ORDERED: NITROGLYCERIN 0.4 MG BOTTLE (25 TABS) SL ONE (16:00)
[2017-11-09 16:34] VITALS: BP 137/89
[2017-11-09] MEDS: SODIUM CHLORIDE 0.9% 1,000 ML IV SCH (17:32)
[2017-11-09] MEDS ORDERED: ASPIRIN 325 MG TABLET ONE (17:41)
[2017-11-09 17:44] VITALS: BP 133/76
[2017-11-09 17:53] LABS: BASOPHILS # (AUTO) 0.07 x10^3/uL (0-0.1); BASOPHILS % (AUTO) 1 % (0-1); EOSINOPHILS # (AUTO) 0.34 x10^3/uL (0-0.4); EOSINOPHILS % (AUTO) 4 % (1-7); LYMPHOCYTES # (AUTO) 1.89 x10^3/uL (1-3.4); LYMPHOCYTES % (AUTO) 23 % (22-44); MD NO; MEAN CORPUSCULAR HEMOGLOBIN 30.9 pg (27.5-34.5); MEAN CORPUSCULAR HGB CONC 34.1 g/dL (33.2-36.2); MEAN CORPUSCULAR VOLUME 90.7 fL (81-97); MEAN PLATELET VOLUME 8.9 fL (7.4-10.4); MONOCYTES % (AUTO) 7 % (2-9); NEUTROPHILS # (AUTO) 5.19 x10^3/uL (1.8-6.8); NEUTROPHILS % (AUTO) 64 % (42-75); PLATELET COUNT 200 x10^3/uL (130-400); RED BLOOD COUNT 4.86 x10^6/uL (4.38-5.82); RED CELL DISTRIBUTION WIDTH 14.4 % (9.4-14.8)
[2017-11-09] MEDS ORDERED: LABETALOL 5MG/ML, 20ML IVPush PRN (18:00)
[2017-11-09] MEDS ORDERED: morphine SULFATE 10 MG/ML, 1ML IVPush ONE (18:00)
[2017-11-09] MEDS ORDERED: hydrALAzine 20 MG/ML, 1ML IVPush PRN (18:00)
[2017-11-09] MEDS ORDERED: ACETAMINOPHEN 325 MG TABLET PO PRN (18:00)
[2017-11-09 18:07] LABS: TROPONIN I < 0.015 ng/mL (0.000-0.045)
[2017-11-09] MEDS ORDERED: MAGNESIUM SULFATE PMX 2GM/50ML 50 ML IV ONE (18:30)
[2017-11-09 18:51] VITALS: BP 146/74
[2017-11-09] MEDS ORDERED: AMLO5TAB7 PO (19:54)
[2017-11-09] MEDS ORDERED: METO50TA82 PO (19:54)
[2017-11-09] MEDS ORDERED: LISI-170 PO (19:54)
[2017-11-09] MEDS: metFORMIN 500 MG TABLET PO SCH (21:01)
[2017-11-09] MEDS: LORazepam 1MG TABLET PO PRN (21:03)
[2017-11-09] MEDS: ATORVASTATIN 40 MG TABLET PO SCH (21:04)
[2017-11-09 23:42] LABS: TROPONIN I 0.018 ng/mL (0.000-0.045)
[2017-11-10 01:56] VITALS: BP 116/73
[2017-11-10] MEDS: LORazepam 1MG TABLET PO PRN ×5 (05:19→22:17)
[2017-11-10 05:37] LABS: ANION GAP 7 mmol/L (5-15); CHLORIDE 105 mmol/L (98-107); CREATININE 0.95 mg/dL (0.7-1.3)
[2017-11-10 05:49] LABS: BASOPHILS # (AUTO) 0.04 x10^3/uL (0-0.1); BASOPHILS % (AUTO) 1 % (0-1); EOSINOPHILS # (AUTO) 0.59 x10^3/uL (0-0.4); EOSINOPHILS % (AUTO) 8 % (1-7); LYMPHOCYTES # (AUTO) 1.93 x10^3/uL (1-3.4); LYMPHOCYTES % (AUTO) 25 % (22-44); MD NO; MEAN CORPUSCULAR HEMOGLOBIN 30.5 pg (27.5-34.5); MEAN CORPUSCULAR HGB CONC 33.8 g/dL (33.2-36.2); MEAN CORPUSCULAR VOLUME 90.4 fL (81-97); MEAN PLATELET VOLUME 8.9 fL (7.4-10.4); MONOCYTES # (AUTO) 0.71 x10^3/uL (0.2-0.8); MONOCYTES % (AUTO) 9 % (2-9); NEUTROPHILS # (AUTO) 4.39 x10^3/uL (1.8-6.8); NEUTROPHILS % (AUTO) 57 % (42-75); PLATELET COUNT 181 x10^3/uL (130-400); RED BLOOD COUNT 4.83 x10^6/uL (4.38-5.82); RED CELL DISTRIBUTION WIDTH 14.3 % (9.4-14.8)
[2017-11-10 06:54] VITALS: BP 138/86
[2017-11-10] MEDS: TIOTROPIUM BROMIDE INH SCH (09:00)
[2017-11-10] MEDS ORDERED: METOPROLOL TARTRATE 100 MG TABLET PO SCH (09:00)
[2017-11-10] MEDS: FOLIC ACID 1 MG TABLET PO SCH (09:15)
[2017-11-10] MEDS: THIAMINE 100MG TABLET PO SCH (09:16)
[2017-11-10] MEDS: LISINOPRIL 20 MG TABLET PO SCH (09:16)
[2017-11-10] MEDS: PAROXETINE 20 MG TABLET PO SCH (09:16)
[2017-11-10] MEDS: MULTIVITAMIN 1 TABLET PO SCH (09:16)
[2017-11-10] MEDS: AMLODIPINE 5 MG TABLET PO SCH (09:16)
[2017-11-10] MEDS: RIVAROXABAN 20 MG TABLET PO SCH (09:16)
[2017-11-10] MEDS: METOPROLOL TARTRATE 50 MG TABLET PO SCH ×2 (09:16→20:10)
[2017-11-10] MEDS: metFORMIN 500 MG TABLET PO SCH ×2 (09:17→20:11)
[2017-11-10] MEDS: SODIUM CHLORIDE 0.9% 1,000 ML IV SCH ×2 (09:17→20:12)
[2017-11-10 09:23] LABS: TROPONIN I < 0.015 ng/mL (0.000-0.045)
[2017-11-10 15:44] VITALS: BP 123/76
[2017-11-10 18:47] VITALS: BP 108/67
[2017-11-10 20:10] VITALS: BP 112/83
[2017-11-10] MEDS: ATORVASTATIN 40 MG TABLET PO SCH (20:11)
[2017-11-11 00:58] VITALS: BP 114/69
[2017-11-11] MEDS: LORazepam 1MG TABLET PO PRN ×5 (02:20→21:04)
[2017-11-11 07:26] VITALS: BP 123/84
[2017-11-11] MEDS: TIOTROPIUM BROMIDE INH SCH (09:00)
[2017-11-11] MEDS: AMLODIPINE 5 MG TABLET PO SCH (09:23)
[2017-11-11] MEDS: LISINOPRIL 20 MG TABLET PO SCH (09:23)
[2017-11-11] MEDS: FOLIC ACID 1 MG TABLET PO SCH (09:23)
[2017-11-11] MEDS: RIVAROXABAN 20 MG TABLET PO SCH (09:23)
[2017-11-11] MEDS: PAROXETINE 20 MG TABLET PO SCH (09:23)
[2017-11-11] MEDS: METOPROLOL TARTRATE 50 MG TABLET PO SCH ×2 (09:23→20:07)
[2017-11-11] MEDS: MULTIVITAMIN 1 TABLET PO SCH (09:24)
[2017-11-11] MEDS: THIAMINE 100MG TABLET PO SCH (09:24)
[2017-11-11] MEDS: metFORMIN 500 MG TABLET PO SCH ×2 (09:24→20:07)
[2017-11-11 13:14] VITALS: BP 118/68
[2017-11-11 19:16] VITALS: BP 118/69
[2017-11-11] MEDS: ATORVASTATIN 40 MG TABLET PO SCH (20:07)
[2017-11-12 00:54] VITALS: BP 123/78
[2017-11-12] MEDS: LORazepam 1MG TABLET PO PRN ×2 (01:13→05:04)
[2017-11-12 07:46] VITALS: BP 112/73
[2017-11-12] MEDS: TIOTROPIUM BROMIDE INH SCH (09:00)
[2017-11-12] MEDS: MULTIVITAMIN 1 TABLET PO SCH (09:27)
[2017-11-12] MEDS: RIVAROXABAN 20 MG TABLET PO SCH (09:27)
[2017-11-12] MEDS: metFORMIN 500 MG TABLET PO SCH ×2 (09:27→20:02)
[2017-11-12] MEDS: FOLIC ACID 1 MG TABLET PO SCH (09:28)
[2017-11-12] MEDS: LISINOPRIL 20 MG TABLET PO SCH (09:29)
[2017-11-12] MEDS: AMLODIPINE 5 MG TABLET PO SCH (09:29)
[2017-11-12] MEDS: THIAMINE 100MG TABLET PO SCH (09:29)
[2017-11-12] MEDS: PAROXETINE 20 MG TABLET PO SCH (09:29)
[2017-11-12] MEDS: METOPROLOL TARTRATE 50 MG TABLET PO SCH ×2 (09:30→20:02)
[2017-11-12 14:30] VITALS: BP 103/63
[2017-11-12 19:52] VITALS: BP 101/64
[2017-11-12] MEDS: ATORVASTATIN 40 MG TABLET PO SCH (20:03)
[2017-11-12 20:39] VITALS: BP 138/84
[2017-11-13 01:15] VITALS: BP 129/82
[2017-11-13 08:18] VITALS: BP 132/85
[2017-11-13] MEDS: FOLIC ACID 1 MG TABLET PO SCH (08:58)
[2017-11-13] MEDS: TIOTROPIUM BROMIDE INH SCH (08:58)
[2017-11-13] MEDS: MULTIVITAMIN 1 TABLET PO SCH (08:59)
[2017-11-13] MEDS: AMLODIPINE 5 MG TABLET PO SCH (08:59)
[2017-11-13] MEDS: RIVAROXABAN 20 MG TABLET PO SCH (08:59)
[2017-11-13] MEDS: PAROXETINE 20 MG TABLET PO SCH (08:59)
[2017-11-13] MEDS: metFORMIN 500 MG TABLET PO SCH ×2 (08:59→21:10)
[2017-11-13] MEDS: LISINOPRIL 20 MG TABLET PO SCH (09:00)
[2017-11-13] MEDS: METOPROLOL TARTRATE 50 MG TABLET PO SCH ×2 (09:00→21:11)
[2017-11-13] MEDS: THIAMINE 100MG TABLET PO SCH (09:00)
[2017-11-13 11:33] LABS: CLOSTRIDIUM DIFFICILE ANTIGEN NEGATIVE; CLOSTRIDIUM DIFFICILE TOXIN NEGATIVE (Negative)
[2017-11-13 14:00] VITALS: BP 136/79
[2017-11-13 18:48] VITALS: BP 113/68
[2017-11-13] MEDS: ATORVASTATIN 40 MG TABLET PO SCH (21:11)
[2017-11-14 02:33] VITALS: BP 108/62
[2017-11-14 07:33] VITALS: BP 118/70
[2017-11-14] MEDS: FOLIC ACID 1 MG TABLET PO SCH (08:51)
[2017-11-14] MEDS: TIOTROPIUM BROMIDE INH SCH (08:51)
[2017-11-14] MEDS: metFORMIN 500 MG TABLET PO SCH ×2 (08:51→20:42)
[2017-11-14] MEDS: LISINOPRIL 20 MG TABLET PO SCH (08:53)
[2017-11-14] MEDS: MULTIVITAMIN 1 TABLET PO SCH (08:53)
[2017-11-14] MEDS: RIVAROXABAN 20 MG TABLET PO SCH (08:53)
[2017-11-14] MEDS: THIAMINE 100MG TABLET PO SCH (08:54)
[2017-11-14] MEDS: METOPROLOL TARTRATE 50 MG TABLET PO SCH ×2 (08:54→20:42)
[2017-11-14] MEDS: PAROXETINE 20 MG TABLET PO SCH (08:54)
[2017-11-14] MEDS: AMLODIPINE 5 MG TABLET PO SCH (09:00)
[2017-11-14 14:00] VITALS: BP 122/63
[2017-11-14 20:18] VITALS: BP 119/80
[2017-11-14] MEDS: ATORVASTATIN 40 MG TABLET PO SCH (20:42)
[2017-11-15 05:17] VITALS: BP 101/63
[2017-11-15 08:17] VITALS: BP 115/77
[2017-11-15] MEDS: METOPROLOL TARTRATE 50 MG TABLET PO SCH (09:00)
[2017-11-15] MEDS: AMLODIPINE 5 MG TABLET PO SCH (09:11)
[2017-11-15] MEDS: FOLIC ACID 1 MG TABLET PO SCH (09:11)
[2017-11-15] MEDS: LISINOPRIL 20 MG TABLET PO SCH (09:11)
[2017-11-15] MEDS: metFORMIN 500 MG TABLET PO SCH (09:12)
[2017-11-15] MEDS: PAROXETINE 20 MG TABLET PO SCH (09:12)
[2017-11-15] MEDS: THIAMINE 100MG TABLET PO SCH (09:13)
[2017-11-15] MEDS: MULTIVITAMIN 1 TABLET PO SCH (09:13)
[2017-11-15] MEDS: RIVAROXABAN 20 MG TABLET PO SCH (09:13)
[2017-11-15] MEDS ORDERED: IPRATROPIUM 0.5 MG/2.5 ML INHA NPPB SCH (12:00)
[2017-11-15 13:21] VITALS: BP 116/66
== END 2017-11-15 14:37 | DRG 885 ==
LOC: ED 05:56 → OBSVTOIN 09:24 → EDIP 09:24 → 2N 16:32 → 5SO 17:41 → 3NE 11-13 18:20
PROVIDERS: ADMIT Hospitalist; ATTEND Hospitalist
DX: F29 Unspecified psychosis not due to a substance or known physiological condition (principal); R45.851 Suicidal ideations; D68.69 Other thrombophilia; J96.10 Chronic respiratory failure, unspecified whether with hypoxia or hypercapnia; I50.9 Heart failure, unspecified; M19.90 Unspecified osteoarthritis, unspecified site; I48.2 Chronic atrial fibrillation; E11.9 Type 2 diabetes mellitus without complications; E78.5 Hyperlipidemia, unspecified; F10.20 Alcohol dependence, uncomplicated; F32.9 Major depressive disorder, single episode, unspecified; F41.1 Generalized anxiety disorder; I11.0 Hypertensive heart disease with heart failure; J44.9 Chronic obstructive pulmonary disease, unspecified; K74.60 Unspecified cirrhosis of liver; Z86.711 Personal history of pulmonary embolism; Z87.891 Personal history of nicotine dependence; Z91.14 Patient's other noncompliance with medication regimen; Z99.81 Dependence on supplemental oxygen; R19.7 Diarrhea, unspecified; Z79.899 Other long term (current) drug therapy; R00.0 Tachycardia, unspecified; Z90.49 Acquired absence of other specified parts of digestive tract; F19.11 Other psychoactive substance abuse, in remission; Z79.01 Long term (current) use of anticoagulants; Z91.010 Allergy to peanuts
CPT/HCPCS: 36415; 71045; 80048; 80053; 80307; 80329; 83735; 84100; 84443; 84484; 85025; 87324; 93005; 93306; 99285; G0378; G0480; J2270; J3475; J7030

== ENCOUNTER 2017-11-15 12:22 | Inpatient (IN) | payer MEDICAID ==
[~2017-11-15] VITALS: Ht 185.4 cm; Wt 122.7 kg
[~2017-11-15 12:22] MED LIST changes: +CLON1TAB11 PO; -CLON1TAB4 PO
[2017-11-15] MEDS ORDERED: ONDANSETRON ODT 4 MG PO PRN (15:00)
[2017-11-15] MEDS ORDERED: BISACODYL 10 MG SUPP PR PRN (15:00)
[2017-11-15] MEDS ORDERED: PLEASE ENTER HEIGHT AND WEIGHT MC SCH (15:00)
[2017-11-15 15:14] VITALS: BP 113/73
[2017-11-15 18:04] LABS: MICROSCOPIC NOT IND
[2017-11-15 18:05] LABS: CULTURE INDICATED? NO
[2017-11-15 19:22] VITALS: BP 102/70
[2017-11-15] MEDS: IBUPROFEN 200 MG TABLET PO PRN (20:51)
[2017-11-16 06:02] LABS: HCT (SEDRATE) 44.9 % (39.2-51.8)
[2017-11-16 06:10] LABS: T4 (THYROXINE) 7.3 mcg/dL (4.5-12.1)
[2017-11-16 06:38] LABS: FOLATE LEVEL > 20.0 ng/mL (3.1-17.5)
[2017-11-16 07:30] VITALS: BP 125/77
[2017-11-16] MEDS ORDERED: TIOTROPIUM BROMIDE INH SCH (11:00)
[2017-11-16 11:37] VITALS: BP 113/74
[2017-11-16] MEDS: METOPROLOL TARTRATE 50 MG TABLET PO SCH ×2 (11:39→20:32)
[2017-11-16] MEDS: PAROXETINE 20 MG TABLET PO SCH (11:39)
[2017-11-16] MEDS: MULTIVITAMIN 1 TABLET PO SCH (11:39)
[2017-11-16] MEDS: LISINOPRIL 20 MG TABLET PO SCH (11:40)
[2017-11-16] MEDS: RIVAROXABAN 20 MG TABLET PO SCH (11:40)
[2017-11-16] MEDS: FOLIC ACID 1 MG TABLET PO SCH (11:40)
[2017-11-16] MEDS: THIAMINE 100MG TABLET PO SCH (11:40)
[2017-11-16] MEDS: IPRATROPIUM 0.5 MG/2.5 ML INHA NPPB SCH ×2 (12:00→18:00)
[2017-11-16] MEDS: metFORMIN 500 MG TABLET PO SCH ×2 (12:05→20:31)
[2017-11-16 13:34] LABS: TROPONIN I < 0.015 ng/mL (0.000-0.045)
[2017-11-16 18:43] LABS: TROPONIN I < 0.015 ng/mL (0.000-0.045)
[2017-11-16 19:19] VITALS: BP 112/69
[2017-11-16] MEDS: ATORVASTATIN 40 MG TABLET PO SCH (20:33)
[2017-11-17] MEDS: IPRATROPIUM 0.5 MG/2.5 ML INHA NPPB SCH ×5 (05:56→20:08)
[2017-11-17 07:30] VITALS: BP 113/79
[2017-11-17] MEDS: MULTIVITAMIN 1 TABLET PO SCH (08:31)
[2017-11-17] MEDS: RIVAROXABAN 20 MG TABLET PO SCH (08:31)
[2017-11-17] MEDS: FOLIC ACID 1 MG TABLET PO SCH (08:31)
[2017-11-17] MEDS: metFORMIN 500 MG TABLET PO SCH ×2 (08:32→20:09)
[2017-11-17] MEDS: PAROXETINE 20 MG TABLET PO SCH (08:32)
[2017-11-17] MEDS: METOPROLOL TARTRATE 50 MG TABLET PO SCH ×2 (08:32→20:09)
[2017-11-17] MEDS: THIAMINE 100MG TABLET PO SCH (08:32)
[2017-11-17] MEDS: LISINOPRIL 20 MG TABLET PO SCH (08:32)
[2017-11-17 19:30] VITALS: BP 117/76
[2017-11-17] MEDS: ATORVASTATIN 40 MG TABLET PO SCH (20:09)
[2017-11-18] MEDS: IPRATROPIUM 0.5 MG/2.5 ML INHA NPPB SCH ×4 (03:40→20:40)
[2017-11-18 07:23] VITALS: BP 113/72
[2017-11-18] MEDS: RIVAROXABAN 20 MG TABLET PO SCH (08:47)
[2017-11-18] MEDS: PAROXETINE 20 MG TABLET PO SCH (08:48)
[2017-11-18] MEDS: THIAMINE 100MG TABLET PO SCH (08:48)
[2017-11-18] MEDS: metFORMIN 500 MG TABLET PO SCH ×2 (08:49→20:05)
[2017-11-18] MEDS: FOLIC ACID 1 MG TABLET PO SCH (08:49)
[2017-11-18] MEDS: MULTIVITAMIN 1 TABLET PO SCH (08:50)
[2017-11-18] MEDS: LISINOPRIL 20 MG TABLET PO SCH (08:50)
[2017-11-18] MEDS: METOPROLOL TARTRATE 50 MG TABLET PO SCH ×2 (08:50→20:05)
[2017-11-18 19:21] VITALS: BP 119/80
[2017-11-18] MEDS: ATORVASTATIN 40 MG TABLET PO SCH (20:05)
[2017-11-19] MEDS: IPRATROPIUM 0.5 MG/2.5 ML INHA NPPB SCH ×5 (05:25→20:15)
[2017-11-19 07:51] VITALS: BP 129/87
[2017-11-19] MEDS: PAROXETINE 20 MG TABLET PO SCH (08:29)
[2017-11-19] MEDS: METOPROLOL TARTRATE 50 MG TABLET PO SCH ×2 (08:30→20:00)
[2017-11-19] MEDS: THIAMINE 100MG TABLET PO SCH (08:30)
[2017-11-19] MEDS: metFORMIN 500 MG TABLET PO SCH ×2 (08:30→19:59)
[2017-11-19] MEDS: MULTIVITAMIN 1 TABLET PO SCH (08:30)
[2017-11-19] MEDS: LISINOPRIL 20 MG TABLET PO SCH (08:30)
[2017-11-19] MEDS: FOLIC ACID 1 MG TABLET PO SCH (08:30)
[2017-11-19] MEDS: RIVAROXABAN 20 MG TABLET PO SCH (08:30)
[2017-11-19 19:16] VITALS: BP 124/72
[2017-11-19] MEDS: ATORVASTATIN 40 MG TABLET PO SCH (20:00)
[2017-11-20 07:30] VITALS: BP 117/80
[2017-11-20] MEDS: metFORMIN 500 MG TABLET PO SCH ×2 (08:10→20:04)
[2017-11-20] MEDS: FOLIC ACID 1 MG TABLET PO SCH (08:10)
[2017-11-20] MEDS: PAROXETINE 20 MG TABLET PO SCH (08:10)
[2017-11-20] MEDS: THIAMINE 100MG TABLET PO SCH (08:11)
[2017-11-20] MEDS: METOPROLOL TARTRATE 50 MG TABLET PO SCH ×2 (08:11→20:05)
[2017-11-20] MEDS: LISINOPRIL 20 MG TABLET PO SCH (08:11)
[2017-11-20] MEDS: RIVAROXABAN 20 MG TABLET PO SCH (08:11)
[2017-11-20] MEDS: MULTIVITAMIN 1 TABLET PO SCH (08:11)
[2017-11-20] MEDS: IPRATROPIUM 0.5 MG/2.5 ML INHA NPPB SCH ×3 (08:14→18:00)
[2017-11-20 19:25] VITALS: BP 114/73
[2017-11-20] MEDS: ATORVASTATIN 40 MG TABLET PO SCH (20:05)
[2017-11-21] MEDS: IPRATROPIUM 0.5 MG/2.5 ML INHA NPPB SCH ×4 (06:00→18:00)
[2017-11-21 07:29] VITALS: BP 117/82
[2017-11-21] MEDS: FOLIC ACID 1 MG TABLET PO SCH (09:19)
[2017-11-21] MEDS: PAROXETINE 20 MG TABLET PO SCH (09:19)
[2017-11-21] MEDS: RIVAROXABAN 20 MG TABLET PO SCH (09:19)
[2017-11-21] MEDS: metFORMIN 500 MG TABLET PO SCH ×2 (09:19→20:24)
[2017-11-21] MEDS: THIAMINE 100MG TABLET PO SCH (09:20)
[2017-11-21] MEDS: MULTIVITAMIN 1 TABLET PO SCH (09:20)
[2017-11-21] MEDS: LISINOPRIL 20 MG TABLET PO SCH (09:20)
[2017-11-21] MEDS: METOPROLOL TARTRATE 50 MG TABLET PO SCH ×2 (09:20→20:24)
[2017-11-21] MEDS: ACETAMINOPHEN 325 MG TABLET PO PRN (18:08)
[2017-11-21 19:23] VITALS: BP 112/63
[2017-11-21] MEDS: ATORVASTATIN 40 MG TABLET PO SCH (20:24)
[2017-11-22] MEDS: IPRATROPIUM 0.5 MG/2.5 ML INHA NPPB SCH ×4 (05:05→18:40)
[2017-11-22 07:39] VITALS: BP 121/79
[2017-11-22] MEDS: THIAMINE 100MG TABLET PO SCH (08:44)
[2017-11-22] MEDS: LISINOPRIL 20 MG TABLET PO SCH (08:44)
[2017-11-22] MEDS: METOPROLOL TARTRATE 50 MG TABLET PO SCH ×2 (08:45→20:13)
[2017-11-22] MEDS: metFORMIN 500 MG TABLET PO SCH ×2 (08:45→20:12)
[2017-11-22] MEDS: FOLIC ACID 1 MG TABLET PO SCH (08:45)
[2017-11-22] MEDS: PAROXETINE 20 MG TABLET PO SCH (08:45)
[2017-11-22] MEDS: RIVAROXABAN 20 MG TABLET PO SCH (08:45)
[2017-11-22] MEDS: MULTIVITAMIN 1 TABLET PO SCH (08:45)
[2017-11-22 20:01] VITALS: BP 128/72
[2017-11-22] MEDS: DOCUSATE 100 MG CAPSULE PO PRN (20:12)
[2017-11-22] MEDS: ATORVASTATIN 40 MG TABLET PO SCH (20:13)
[2017-11-22] MEDS: MELATONIN 5 MG TABLET PO SCH (21:03)
[2017-11-23] MEDS: IPRATROPIUM 0.5 MG/2.5 ML INHA NPPB SCH ×4 (00:27→19:14)
[2017-11-23] MEDS: ACETAMINOPHEN 325 MG TABLET PO PRN (01:40)
[2017-11-23 07:31] VITALS: BP 130/72
[2017-11-23] MEDS: MULTIVITAMIN 1 TABLET PO SCH (09:12)
[2017-11-23] MEDS: FOLIC ACID 1 MG TABLET PO SCH (09:12)
[2017-11-23] MEDS: LISINOPRIL 20 MG TABLET PO SCH (09:12)
[2017-11-23] MEDS: RIVAROXABAN 20 MG TABLET PO SCH (09:12)
[2017-11-23] MEDS: metFORMIN 500 MG TABLET PO SCH ×2 (09:13→20:27)
[2017-11-23] MEDS: METOPROLOL TARTRATE 50 MG TABLET PO SCH ×2 (09:14→20:28)
[2017-11-23] MEDS: PAROXETINE 20 MG TABLET PO SCH (09:14)
[2017-11-23] MEDS: THIAMINE 100MG TABLET PO SCH (09:14)
[2017-11-23 19:35] VITALS: BP 112/72
[2017-11-23] MEDS: MELATONIN 5 MG TABLET PO SCH (20:27)
[2017-11-23] MEDS: ATORVASTATIN 40 MG TABLET PO SCH (20:27)
[2017-11-24] MEDS: IPRATROPIUM 0.5 MG/2.5 ML INHA NPPB SCH ×5 (00:16→18:25)
[2017-11-24 08:08] VITALS: BP 117/76
[2017-11-24] MEDS: FOLIC ACID 1 MG TABLET PO SCH (08:47)
[2017-11-24] MEDS: RIVAROXABAN 20 MG TABLET PO SCH (08:47)
[2017-11-24] MEDS: metFORMIN 500 MG TABLET PO SCH ×2 (08:47→20:20)
[2017-11-24] MEDS: THIAMINE 100MG TABLET PO SCH (08:48)
[2017-11-24] MEDS: MULTIVITAMIN 1 TABLET PO SCH (08:48)
[2017-11-24] MEDS: METOPROLOL TARTRATE 50 MG TABLET PO SCH ×2 (08:48→20:20)
[2017-11-24] MEDS: PAROXETINE 20 MG TABLET PO SCH (08:48)
[2017-11-24] MEDS: LISINOPRIL 20 MG TABLET PO SCH (08:50)
[2017-11-24 20:09] VITALS: BP_SYST 117; BP_SYST 132; BP_DIAS 76; BP_DIAS 79
[2017-11-24] MEDS: ATORVASTATIN 40 MG TABLET PO SCH (20:20)
[2017-11-24] MEDS: MELATONIN 5 MG TABLET PO SCH (20:20)
[2017-11-24] MEDS: TRAZODONE 50MG TABLET PO SCH (20:20)
[2017-11-24] MEDS: DOCUSATE 100 MG CAPSULE PO PRN (20:26)
[2017-11-25] MEDS: IPRATROPIUM 0.5 MG/2.5 ML INHA NPPB SCH ×4 (07:20→18:00)
[2017-11-25 07:49] VITALS: BP 135/79
[2017-11-25] MEDS: THIAMINE 100MG TABLET PO SCH (07:52)
[2017-11-25] MEDS: FOLIC ACID 1 MG TABLET PO SCH (07:52)
[2017-11-25] MEDS: MULTIVITAMIN 1 TABLET PO SCH (07:53)
[2017-11-25] MEDS: metFORMIN 500 MG TABLET PO SCH ×2 (07:54→20:30)
[2017-11-25] MEDS: METOPROLOL TARTRATE 50 MG TABLET PO SCH ×2 (07:54→20:30)
[2017-11-25] MEDS: PAROXETINE 20 MG TABLET PO SCH (07:54)
[2017-11-25] MEDS: RIVAROXABAN 20 MG TABLET PO SCH (07:55)
[2017-11-25] MEDS: LISINOPRIL 20 MG TABLET PO SCH (08:00)
[2017-11-25] MEDS: FLUTICASONE/VILANTEROL 200-25MCG/INH INH SCH (12:30)
[2017-11-25 19:31] VITALS: BP 134/78
[2017-11-25] MEDS: MELATONIN 5 MG TABLET PO SCH (20:30)
[2017-11-25] MEDS: DOCUSATE 100 MG CAPSULE PO PRN (20:30)
[2017-11-25] MEDS: TRAZODONE 50MG TABLET PO SCH (20:30)
[2017-11-25] MEDS: ATORVASTATIN 40 MG TABLET PO SCH (20:32)
[2017-11-26] MEDS: ACETAMINOPHEN 325 MG TABLET PO PRN (03:51)
[2017-11-26 07:28] VITALS: BP 113/77
[2017-11-26] MEDS: IPRATROPIUM 0.5 MG/2.5 ML INHA NPPB SCH ×4 (08:00→20:20)
[2017-11-26] MEDS: FOLIC ACID 1 MG TABLET PO SCH (08:32)
[2017-11-26] MEDS: METOPROLOL TARTRATE 50 MG TABLET PO SCH ×2 (08:33→20:09)
[2017-11-26] MEDS: metFORMIN 500 MG TABLET PO SCH ×2 (08:33→20:08)
[2017-11-26] MEDS: LISINOPRIL 20 MG TABLET PO SCH (08:34)
[2017-11-26] MEDS: MULTIVITAMIN 1 TABLET PO SCH (08:34)
[2017-11-26] MEDS: PAROXETINE 20 MG TABLET PO SCH (08:34)
[2017-11-26] MEDS: THIAMINE 100MG TABLET PO SCH (08:34)
[2017-11-26] MEDS: RIVAROXABAN 20 MG TABLET PO SCH (08:35)
[2017-11-26] MEDS: FLUTICASONE/VILANTEROL 200-25MCG/INH INH SCH (08:53)
[2017-11-26 19:30] VITALS: BP 139/77
[2017-11-26] MEDS: TRAZODONE 50MG TABLET PO SCH (20:08)
[2017-11-26] MEDS: ATORVASTATIN 40 MG TABLET PO SCH (20:08)
[2017-11-26] MEDS: DOCUSATE 100 MG CAPSULE PO PRN (20:09)
[2017-11-26] MEDS: MELATONIN 5 MG TABLET PO SCH (20:09)
[2017-11-26] MEDS: LIDOCAINE 4% CREAM 5GM TUBE TP SCH (20:30)
[2017-11-27 07:42] VITALS: BP 110/71
[2017-11-27] MEDS: IPRATROPIUM 0.5 MG/2.5 ML INHA NPPB SCH ×3 (08:10→12:00)
[2017-11-27] MEDS: FLUTICASONE/VILANTEROL 200-25MCG/INH INH SCH (08:51)
[2017-11-27] MEDS: FOLIC ACID 1 MG TABLET PO SCH (08:51)
[2017-11-27] MEDS: metFORMIN 500 MG TABLET PO SCH ×2 (08:52→20:15)
[2017-11-27] MEDS: PAROXETINE 20 MG TABLET PO SCH (08:53)
[2017-11-27] MEDS: THIAMINE 100MG TABLET PO SCH (08:53)
[2017-11-27] MEDS: LISINOPRIL 20 MG TABLET PO SCH (08:53)
[2017-11-27] MEDS: MULTIVITAMIN 1 TABLET PO SCH (08:53)
[2017-11-27] MEDS: METOPROLOL TARTRATE 50 MG TABLET PO SCH ×2 (08:53→20:16)
[2017-11-27] MEDS: LIDOCAINE 4% CREAM 5GM TUBE TP SCH ×2 (08:54→09:00)
[2017-11-27] MEDS: RIVAROXABAN 20 MG TABLET PO SCH (08:54)
[2017-11-27 19:46] VITALS: BP 134/85
[2017-11-27] MEDS: TRAZODONE 150MG TABLET PO SCH (20:15)
[2017-11-27] MEDS: ATORVASTATIN 40 MG TABLET PO SCH (20:15)
[2017-11-27] MEDS: MELATONIN 5 MG TABLET PO SCH (20:15)
[2017-11-27] MEDS: DOCUSATE 100 MG CAPSULE PO PRN (20:20)
[2017-11-28 07:45] VITALS: BP 128/83
[2017-11-28] MEDS: IPRATROPIUM 0.5 MG/2.5 ML INHA NPPB SCH ×4 (08:10→18:00)
[2017-11-28] MEDS: FOLIC ACID 1 MG TABLET PO SCH (08:48)
[2017-11-28] MEDS: FLUTICASONE/VILANTEROL 200-25MCG/INH INH SCH (08:48)
[2017-11-28] MEDS: PAROXETINE 20 MG TABLET PO SCH (08:49)
[2017-11-28] MEDS: METOPROLOL TARTRATE 50 MG TABLET PO SCH ×2 (08:49→20:18)
[2017-11-28] MEDS: MULTIVITAMIN 1 TABLET PO SCH (08:49)
[2017-11-28] MEDS: LISINOPRIL 20 MG TABLET PO SCH (08:50)
[2017-11-28] MEDS: THIAMINE 100MG TABLET PO SCH (08:50)
[2017-11-28] MEDS: RIVAROXABAN 20 MG TABLET PO SCH (08:50)
[2017-11-28] MEDS: metFORMIN 500 MG TABLET PO SCH ×2 (08:51→20:18)
[2017-11-28 19:32] VITALS: BP 132/88
[2017-11-28] MEDS: TRAZODONE 150MG TABLET PO SCH (20:18)
[2017-11-28] MEDS: MELATONIN 5 MG TABLET PO SCH (20:19)
[2017-11-28] MEDS: ATORVASTATIN 40 MG TABLET PO SCH (20:19)
[2017-11-28] MEDS: DOCUSATE 100 MG CAPSULE PO PRN (20:23)
[2017-11-28] MEDS: ARTIFICIAL TEARS 15 DROP/ML BOTTLE EACHEYE PRN (20:53)
[2017-11-29] MEDS: IPRATROPIUM 0.5 MG/2.5 ML INHA NPPB SCH ×4 (06:37→18:00)
[2017-11-29 07:05] VITALS: BP 124/83
[2017-11-29] MEDS: THIAMINE 100MG TABLET PO SCH (08:17)
[2017-11-29] MEDS: FOLIC ACID 1 MG TABLET PO SCH (08:17)
[2017-11-29] MEDS: DOCUSATE 100 MG CAPSULE PO PRN (08:17)
[2017-11-29] MEDS: METOPROLOL TARTRATE 50 MG TABLET PO SCH ×2 (08:17→20:42)
[2017-11-29] MEDS: LISINOPRIL 20 MG TABLET PO SCH (08:18)
[2017-11-29] MEDS: PAROXETINE 20 MG TABLET PO SCH (08:18)
[2017-11-29] MEDS: metFORMIN 500 MG TABLET PO SCH ×2 (08:18→20:41)
[2017-11-29] MEDS: RIVAROXABAN 20 MG TABLET PO SCH (08:18)
[2017-11-29] MEDS: MULTIVITAMIN 1 TABLET PO SCH (08:18)
[2017-11-29] MEDS: FLUTICASONE/VILANTEROL 200-25MCG/INH INH SCH (10:12)
[2017-11-29 20:10] VITALS: BP 132/90
[2017-11-29] MEDS: TRAZODONE 150MG TABLET PO SCH (20:41)
[2017-11-29] MEDS: ATORVASTATIN 40 MG TABLET PO SCH (20:42)
[2017-11-29] MEDS: MELATONIN 5 MG TABLET PO SCH (20:42)
[2017-11-29] MEDS: POLYETHYLENE GLYCOL 17 GM PACKET PO PRN (20:49)
[2017-11-30 07:58] VITALS: BP 132/89
[2017-11-30] MEDS: THIAMINE 100MG TABLET PO SCH (08:36)
[2017-11-30] MEDS: FLUTICASONE/VILANTEROL 200-25MCG/INH INH SCH (08:36)
[2017-11-30] MEDS: RIVAROXABAN 20 MG TABLET PO SCH (08:36)
[2017-11-30] MEDS: ARTIFICIAL TEARS 15 DROP/ML BOTTLE EACHEYE PRN ×2 (08:36→20:14)
[2017-11-30] MEDS: PAROXETINE 20 MG TABLET PO SCH (08:37)
[2017-11-30] MEDS: MULTIVITAMIN 1 TABLET PO SCH (08:37)
[2017-11-30] MEDS: metFORMIN 500 MG TABLET PO SCH ×2 (08:37→20:13)
[2017-11-30] MEDS: FOLIC ACID 1 MG TABLET PO SCH (08:37)
[2017-11-30] MEDS: METOPROLOL TARTRATE 50 MG TABLET PO SCH ×2 (08:37→20:14)
[2017-11-30] MEDS: LISINOPRIL 20 MG TABLET PO SCH (08:38)
[2017-11-30] MEDS: IPRATROPIUM 0.5 MG/2.5 ML INHA NPPB SCH ×4 (11:25→21:15)
[2017-11-30 19:31] VITALS: BP 125/87
[2017-11-30] MEDS: ACETAMINOPHEN 325 MG TABLET PO PRN (20:14)
[2017-11-30] MEDS: ATORVASTATIN 40 MG TABLET PO SCH (20:14)
[2017-11-30] MEDS: MELATONIN 5 MG TABLET PO SCH (20:14)
[2017-11-30] MEDS: POLYETHYLENE GLYCOL 17 GM PACKET PO PRN (21:50)
[2017-11-30] MEDS: TRAZODONE 150MG TABLET PO SCH (21:50)
[2017-12-01] MEDS: IPRATROPIUM 0.5 MG/2.5 ML INHA NPPB SCH ×3 (03:00→21:10)
[2017-12-01] MEDS: ARTIFICIAL TEARS 15 DROP/ML BOTTLE EACHEYE PRN (07:39)
[2017-12-01 07:58] VITALS: BP 114/80
[2017-12-01] MEDS: FOLIC ACID 1 MG TABLET PO SCH (08:30)
[2017-12-01] MEDS: LISINOPRIL 20 MG TABLET PO SCH (08:30)
[2017-12-01] MEDS: MULTIVITAMIN 1 TABLET PO SCH (08:30)
[2017-12-01] MEDS: PAROXETINE 20 MG TABLET PO SCH (08:30)
[2017-12-01] MEDS: metFORMIN 500 MG TABLET PO SCH ×2 (08:31→20:11)
[2017-12-01] MEDS: THIAMINE 100MG TABLET PO SCH (08:31)
[2017-12-01] MEDS: METOPROLOL TARTRATE 50 MG TABLET PO SCH ×2 (08:31→20:10)
[2017-12-01] MEDS: RIVAROXABAN 20 MG TABLET PO SCH (08:31)
[2017-12-01] MEDS: FLUTICASONE/VILANTEROL 200-25MCG/INH INH SCH (10:46)
[2017-12-01] MEDS: IBUPROFEN 200 MG TABLET PO PRN (10:49)
[2017-12-01] MEDS: POLYETHYLENE GLYCOL 17 GM PACKET PO PRN (16:14)
[2017-12-01] MEDS: DOCUSATE 100 MG CAPSULE PO PRN ×2 (16:14→20:18)
[2017-12-01 19:20] VITALS: BP 113/73
[2017-12-01] MEDS: TRAZODONE 150MG TABLET PO SCH (20:10)
[2017-12-01] MEDS: MELATONIN 5 MG TABLET PO SCH (20:11)
[2017-12-01] MEDS: ATORVASTATIN 40 MG TABLET PO SCH (20:11)
[2017-12-02] MEDS: IPRATROPIUM 0.5 MG/2.5 ML INHA NPPB SCH ×6 (03:00→23:00)
[2017-12-02 08:00] VITALS: BP 121/71
[2017-12-02] MEDS: IBUPROFEN 200 MG TABLET PO PRN (08:27)
[2017-12-02] MEDS: PAROXETINE 20 MG TABLET PO SCH (08:28)
[2017-12-02] MEDS: MULTIVITAMIN 1 TABLET PO SCH (08:29)
[2017-12-02] MEDS: FOLIC ACID 1 MG TABLET PO SCH (08:29)
[2017-12-02] MEDS: DOCUSATE 100 MG CAPSULE PO PRN ×2 (08:29→20:08)
[2017-12-02] MEDS: metFORMIN 500 MG TABLET PO SCH ×2 (08:30→20:08)
[2017-12-02] MEDS: RIVAROXABAN 20 MG TABLET PO SCH (08:30)
[2017-12-02] MEDS: METOPROLOL TARTRATE 50 MG TABLET PO SCH ×2 (08:31→20:08)
[2017-12-02] MEDS: LISINOPRIL 20 MG TABLET PO SCH (08:31)
[2017-12-02] MEDS: THIAMINE 100MG TABLET PO SCH (08:31)
[2017-12-02] MEDS: FLUTICASONE/VILANTEROL 200-25MCG/INH INH SCH (09:00)
[2017-12-02] MEDS: ARTIFICIAL TEARS 15 DROP/ML BOTTLE EACHEYE PRN ×2 (09:10→15:49)
[2017-12-02 19:12] VITALS: BP 135/95
[2017-12-02] MEDS: TRAZODONE 150MG TABLET PO SCH (20:08)
[2017-12-02] MEDS: ATORVASTATIN 40 MG TABLET PO SCH (20:08)
[2017-12-02] MEDS: MELATONIN 5 MG TABLET PO SCH (20:08)
[2017-12-02] MEDS: POLYETHYLENE GLYCOL 17 GM PACKET PO PRN (20:08)
[2017-12-03] MEDS: IPRATROPIUM 0.5 MG/2.5 ML INHA NPPB SCH ×3 (05:20→19:35)
[2017-12-03] MEDS: ARTIFICIAL TEARS 15 DROP/ML BOTTLE EACHEYE PRN ×3 (06:24→20:21)
[2017-12-03 07:15] VITALS: BP 115/76
[2017-12-03] MEDS: FOLIC ACID 1 MG TABLET PO SCH (08:07)
[2017-12-03] MEDS: PAROXETINE 20 MG TABLET PO SCH (08:07)
[2017-12-03] MEDS: THIAMINE 100MG TABLET PO SCH (08:07)
[2017-12-03] MEDS: MULTIVITAMIN 1 TABLET PO SCH (08:07)
[2017-12-03] MEDS: RIVAROXABAN 20 MG TABLET PO SCH (08:08)
[2017-12-03] MEDS: METOPROLOL TARTRATE 50 MG TABLET PO SCH ×2 (08:08→20:22)
[2017-12-03] MEDS: LISINOPRIL 20 MG TABLET PO SCH (08:08)
[2017-12-03] MEDS: metFORMIN 500 MG TABLET PO SCH ×2 (08:08→20:22)
[2017-12-03] MEDS: FLUTICASONE/VILANTEROL 200-25MCG/INH INH SCH (08:11)
[2017-12-03] MEDS: IBUPROFEN 200 MG TABLET PO PRN (08:11)
[2017-12-03 16:53] VITALS: BP 121/82
[2017-12-03 19:39] VITALS: BP 129/87
[2017-12-03] MEDS: TRAZODONE 150MG TABLET PO SCH (20:21)
[2017-12-03] MEDS: POLYETHYLENE GLYCOL 17 GM PACKET PO PRN (20:21)
[2017-12-03] MEDS: DOCUSATE 100 MG CAPSULE PO PRN (20:21)
[2017-12-03] MEDS: ATORVASTATIN 40 MG TABLET PO SCH (20:22)
[2017-12-03] MEDS: MELATONIN 5 MG TABLET PO SCH (20:22)
[2017-12-04] MEDS: IPRATROPIUM 0.5 MG/2.5 ML INHA NPPB SCH ×4 (06:20→18:00)
[2017-12-04 07:31] VITALS: BP 120/83
[2017-12-04] MEDS: PAROXETINE 20 MG TABLET PO SCH (08:39)
[2017-12-04] MEDS: metFORMIN 500 MG TABLET PO SCH ×2 (08:39→20:08)
[2017-12-04] MEDS: FLUTICASONE/VILANTEROL 200-25MCG/INH INH SCH (08:39)
[2017-12-04] MEDS: FOLIC ACID 1 MG TABLET PO SCH (08:39)
[2017-12-04] MEDS: THIAMINE 100MG TABLET PO SCH (08:39)
[2017-12-04] MEDS: LISINOPRIL 20 MG TABLET PO SCH (08:40)
[2017-12-04] MEDS: MULTIVITAMIN 1 TABLET PO SCH (08:40)
[2017-12-04] MEDS: RIVAROXABAN 20 MG TABLET PO SCH (08:40)
[2017-12-04] MEDS: METOPROLOL TARTRATE 50 MG TABLET PO SCH ×2 (08:40→20:08)
[2017-12-04] MEDS: ARTIFICIAL TEARS 15 DROP/ML BOTTLE EACHEYE PRN ×3 (08:40→20:08)
[2017-12-04] MEDS: POLYETHYLENE GLYCOL 17 GM PACKET PO PRN ×2 (13:57→20:09)
[2017-12-04 20:02] VITALS: BP 144/93
[2017-12-04] MEDS: ATORVASTATIN 40 MG TABLET PO SCH (20:08)
[2017-12-04] MEDS: TRAZODONE 150MG TABLET PO SCH (20:09)
[2017-12-04] MEDS: MELATONIN 5 MG TABLET PO SCH (20:09)
[2017-12-05] MEDS: IPRATROPIUM 0.5 MG/2.5 ML INHA NPPB SCH ×4 (06:00→19:02)
[2017-12-05 08:00] VITALS: BP 131/80
[2017-12-05] MEDS: ARTIFICIAL TEARS 15 DROP/ML BOTTLE EACHEYE PRN (08:33)
[2017-12-05] MEDS: POLYETHYLENE GLYCOL 17 GM PACKET PO PRN (08:33)
[2017-12-05] MEDS: METOPROLOL TARTRATE 50 MG TABLET PO SCH ×2 (08:34→19:55)
[2017-12-05] MEDS: RIVAROXABAN 20 MG TABLET PO SCH (08:34)
[2017-12-05] MEDS: PAROXETINE 20 MG TABLET PO SCH (08:34)
[2017-12-05] MEDS: metFORMIN 500 MG TABLET PO SCH ×2 (08:34→19:55)
[2017-12-05] MEDS: FOLIC ACID 1 MG TABLET PO SCH (08:34)
[2017-12-05] MEDS: MULTIVITAMIN 1 TABLET PO SCH (08:34)
[2017-12-05] MEDS: FLUTICASONE/VILANTEROL 200-25MCG/INH INH SCH (08:35)
[2017-12-05] MEDS: LISINOPRIL 20 MG TABLET PO SCH (08:35)
[2017-12-05] MEDS: THIAMINE 100MG TABLET PO SCH (08:35)
[2017-12-05] MEDS: TRAZODONE 150MG TABLET PO SCH (19:55)
[2017-12-05] MEDS: MELATONIN 5 MG TABLET PO SCH (19:55)
[2017-12-05] MEDS: DOCUSATE 100 MG CAPSULE PO PRN (19:55)
[2017-12-05] MEDS: ATORVASTATIN 40 MG TABLET PO SCH (20:03)
[2017-12-05 20:09] VITALS: BP 153/79
[2017-12-06] MEDS: IPRATROPIUM 0.5 MG/2.5 ML INHA NPPB SCH ×2 (06:00)
[2017-12-06 07:59] VITALS: BP 107/73
[2017-12-06] MEDS: PAROXETINE 20 MG TABLET PO SCH (08:37)
[2017-12-06] MEDS: FOLIC ACID 1 MG TABLET PO SCH (08:37)
[2017-12-06] MEDS: FLUTICASONE/VILANTEROL 200-25MCG/INH INH SCH (08:37)
[2017-12-06] MEDS: metFORMIN 500 MG TABLET PO SCH (08:37)
[2017-12-06] MEDS: THIAMINE 100MG TABLET PO SCH (08:37)
[2017-12-06] MEDS: RIVAROXABAN 20 MG TABLET PO SCH (08:38)
[2017-12-06] MEDS: ARTIFICIAL TEARS 15 DROP/ML BOTTLE EACHEYE PRN (08:38)
[2017-12-06] MEDS: LISINOPRIL 20 MG TABLET PO SCH (08:38)
[2017-12-06] MEDS: METOPROLOL TARTRATE 50 MG TABLET PO SCH (08:38)
[2017-12-06] MEDS: MULTIVITAMIN 1 TABLET PO SCH (08:39)
[2017-12-06] MEDS ORDERED: METF500T PO (15:01)
[2017-12-06] MEDS ORDERED: RIVA20TA PO (15:01)
[2017-12-06] MEDS ORDERED: METO50TA82 PO (15:01)
[2017-12-06] MEDS ORDERED: FOLI-17 PO (15:01)
[2017-12-06] MEDS ORDERED: FLUT1BLS INH (15:01)
[2017-12-06] MEDS ORDERED: TRAZ150T62 PO (15:01)
[2017-12-06] MEDS ORDERED: CLON1TAB11 PO (15:01)
[2017-12-06] MEDS ORDERED: ACET325T14 PO (15:01)
[2017-12-06] MEDS ORDERED: LISI-170 PO (15:01)
[2017-12-06] MEDS ORDERED: MULT1TAB60 PO (15:01)
[2017-12-06] MEDS ORDERED: MELA5TAB19 PO (15:01)
[2017-12-06] MEDS ORDERED: PARO20TA4 PO (15:01)
[2017-12-06] MEDS ORDERED: DOCU-131 PO (15:01)
[2017-12-06] MEDS ORDERED: ATOR40TA78 PO (15:01)
[2017-12-06] MEDS ORDERED: IPRATROPIUM 0.5 MG/2.5 ML INHA NPPB SCH (16:00)
== END 2017-12-06 17:19 | disposition home or self-care (01) | DRG 885 ==
LOC: 3E 14:38
PROVIDERS: ADMIT Psychiatry & Neurology Psychosomatic Medicine; ATTEND Psychiatry & Neurology Psychosomatic Medicine
DX: F31.64 Bipolar disorder, current episode mixed, severe, with psychotic features (principal); D68.69 Other thrombophilia; I50.32 Chronic diastolic (congestive) heart failure; J96.10 Chronic respiratory failure, unspecified whether with hypoxia or hypercapnia; F11.20 Opioid dependence, uncomplicated; B19.20 Unspecified viral hepatitis C without hepatic coma; E11.69 Type 2 diabetes mellitus with other specified complication; E66.9 Obesity, unspecified; Z68.35 Body mass index [BMI] 35.0-35.9, adult; E78.5 Hyperlipidemia, unspecified; F14.21 Cocaine dependence, in remission; F17.200 Nicotine dependence, unspecified, uncomplicated; F41.0 Panic disorder [episodic paroxysmal anxiety]; F41.1 Generalized anxiety disorder; F60.9 Personality disorder, unspecified; G47.00 Insomnia, unspecified; G89.29 Other chronic pain; I11.0 Hypertensive heart disease with heart failure; I48.2 Chronic atrial fibrillation; J44.9 Chronic obstructive pulmonary disease, unspecified; K74.60 Unspecified cirrhosis of liver; Z59.0 Homelessness; Z79.01 Long term (current) use of anticoagulants; Z79.84 Long term (current) use of oral hypoglycemic drugs; Z79.899 Other long term (current) drug therapy; Z87.01 Personal history of pneumonia (recurrent); Z91.19 Patient's noncompliance with other medical treatment and regimen; Z99.81 Dependence on supplemental oxygen; Z91.010 Allergy to peanuts; Z90.49 Acquired absence of other specified parts of digestive tract; Z82.49 Family history of ischemic heart disease and other diseases of the circulatory system; Z86.718 Personal history of other venous thrombosis and embolism
CPT/HCPCS: 36415; J7644; 81003; 82140; 82607; 82746; 82962; 84436; 84484; 85651; 86480; 86592; 90656; 94640; 92523-GN

== ENCOUNTER 2018-01-05 05:29 | Emergency (ER) | payer MEDICAID ==
[~2018-01-05] VITALS: Ht 175.3 cm; Wt 90.0 kg
[~2018-01-05 05:29] MED LIST changes: +ACET325T14 PO; +DOCU-131 PO; +FLUT1BLS INH; +MELA5TAB19 PO; +METF500T PO; +MULT1TAB60 PO; +PARO20TA4 PO; +TRAZ150T62 PO
[2018-01-05 05:32] VITALS: BP 117/74
== END 2018-01-05 06:02 | disposition home or self-care (01) ==
LOC: ED 05:49
DX: R09.02 Hypoxemia (principal); Z00.00 Encounter for general adult medical examination without abnormal findings
CPT/HCPCS: 99283

== ENCOUNTER 2018-01-08 19:48 | Emergency (ER) | payer MEDICAID ==
[~2018-01-08] VITALS: Ht 188 cm; Wt 125.0 kg
[2018-01-08 19:59] VITALS: BP 105/68
== END 2018-01-08 20:46 | disposition home or self-care (01) ==
LOC: ED 20:19
DX: M54.5 Low back pain (principal); G89.29 Other chronic pain; E11.9 Type 2 diabetes mellitus without complications; E78.5 Hyperlipidemia, unspecified; I48.91 Unspecified atrial fibrillation; I11.0 Hypertensive heart disease with heart failure; I50.9 Heart failure, unspecified; F41.1 Generalized anxiety disorder; J44.9 Chronic obstructive pulmonary disease, unspecified; Z90.49 Acquired absence of other specified parts of digestive tract; F32.9 Major depressive disorder, single episode, unspecified
CPT/HCPCS: 99283

== ENCOUNTER 2018-01-09 17:56 | Emergency (ER) | payer MEDICAID ==
[~2018-01-09] VITALS: Ht 188 cm; Wt 120.0 kg
[~2018-01-09 17:56] MED LIST changes: +AMLO-150 PO; -AMLO5TAB7 PO; +METR-142 PO; -METR500T8 PO; -TRAZ-136 PO; +TRAZ50TA66 PO
[2018-01-09 18:49] LABS: BASOPHILS # (AUTO) 0.05 x10^3/uL (0-0.1); BASOPHILS % (AUTO) 1 % (0-1); EOSINOPHILS # (AUTO) 0.47 x10^3/uL (0-0.4); EOSINOPHILS % (AUTO) 6 % (1-7); LYMPHOCYTES % (AUTO) 25 % (22-44); MD NO; MEAN CORPUSCULAR HEMOGLOBIN 30.2 pg (27.5-34.5); MEAN CORPUSCULAR VOLUME 91.5 fL (81-97); MEAN PLATELET VOLUME 8.6 fL (7.4-10.4); MONOCYTES # (AUTO) 0.44 x10^3/uL (0.2-0.8); MONOCYTES % (AUTO) 6 % (2-9); NEUTROPHILS # (AUTO) 4.76 x10^3/uL (1.8-6.8); NEUTROPHILS % (AUTO) 63 % (42-75); PLATELET COUNT 217 x10^3/uL (130-400); RED BLOOD COUNT 4.95 x10^6/uL (4.38-5.82); RED CELL DISTRIBUTION WIDTH 15.1 % (9.4-14.8)
[2018-01-09 18:57] LABS: ALBUMIN 3.9 g/dL (3.4-5.0); ANION GAP 9 mmol/L (5-15); CALCIUM 8.5 mg/dL (8.5-10.1); CHLORIDE 104 mmol/L (98-107); CREATININE 0.87 mg/dL (0.7-1.3)
[2018-01-09 18:59] LABS: SALICYLATE LEVEL < 1.7 mg/dL (2.8-20.0)
[2018-01-09 19:00] LABS: ACETAMINOPHEN < 2 mcg/mL (10-30)
[2018-01-09 20:26] LABS: AMPHETAMINE SCREEN, URINE Negative (Negative); BARBITURATE SCREEN, URINE Negative (Negative); BENZODIAZEPINE SCREEN, URINE Positive (Negative); CANNABINOID SCREEN, URINE Negative (Negative); COCAINE SCREEN, URINE Negative (Negative); METHADONE SCREEN, URINE Negative (Negative); OPIATE SCREEN, URINE Negative (Negative)
[2018-01-10] MEDS ORDERED: LORazepam 1MG TABLET PO ONE (14:30)
[2018-01-10] MEDS ORDERED: LORazepam 1MG TABLET ONE (14:30)
[2018-01-10] MEDS ORDERED: TEMPLATE NON-FORMULARY MED. (Clonazepam** 2 MG) PO SCH (22:30)
[2018-01-10] MEDS ORDERED: DOCUSATE 100 MG CAPSULE PO PRN (22:30)
[2018-01-10] MEDS ORDERED: METOPROLOL TARTRATE 50 MG TABLET ONE (22:32)
[2018-01-10] MEDS ORDERED: TRAZODONE 150MG TABLET ONE (22:32)
[2018-01-10] MEDS: TRAZODONE 150MG TABLET PO SCH (22:34)
[2018-01-10] MEDS: METOPROLOL TARTRATE 50 MG TABLET PO SCH (22:35)
[2018-01-10] MEDS: metFORMIN 500 MG TABLET PO SCH (23:00)
[2018-01-10] MEDS: MELATONIN 5 MG TABLET PO SCH (23:00)
[2018-01-10] MEDS: ATORVASTATIN 40 MG TABLET PO SCH (23:01)
[2018-01-11] MEDS: metFORMIN 500 MG TABLET PO SCH ×2 (08:24→16:07)
[2018-01-11] MEDS: AMLODIPINE 5 MG TABLET PO SCH (09:00)
[2018-01-11] MEDS: LISINOPRIL 20 MG TABLET PO SCH (09:00)
[2018-01-11] MEDS ORDERED: TIOTROPIUM BROMIDE INH SCH (09:00)
[2018-01-11] MEDS: METOPROLOL TARTRATE 50 MG TABLET PO SCH ×2 (09:00→21:14)
[2018-01-11] MEDS ORDERED: FLUTICASONE/VILANTEROL 200-25MCG/INH INH SCH (09:00)
[2018-01-11] MEDS: ALBUTEROL SULFATE 2.5 MG/3 ML NPPB SCH ×2 (09:30→15:30)
[2018-01-11] MEDS: IPRATROPIUM 0.5 MG/2.5 ML INHA NPPB SCH ×3 (09:30→22:35)
[2018-01-11] MEDS ORDERED: BUDESONIDE 0.5 MG/2 ML INHA NPPB SCH (09:30)
[2018-01-11] MEDS: FOLIC ACID 1 MG TABLET PO SCH (09:36)
[2018-01-11] MEDS: MULTIVITAMIN 1 TABLET PO SCH (09:36)
[2018-01-11] MEDS: PAROXETINE 20 MG TABLET PO SCH (09:37)
[2018-01-11] MEDS ORDERED: THIAMINE 100MG TABLET ONE (09:41)
[2018-01-11] MEDS: RIVAROXABAN 20 MG TABLET PO SCH (09:42)
[2018-01-11] MEDS: THIAMINE 100MG TABLET PO SCH (09:42)
[2018-01-11] MEDS ORDERED: RIVAROXABAN 20 MG TABLET ONE (09:42)
[2018-01-11] MEDS ORDERED: TRAZODONE 150MG TABLET ONE (20:10)
[2018-01-11] MEDS: TRAZODONE 150MG TABLET PO SCH (20:15)
[2018-01-11] MEDS: MELATONIN 5 MG TABLET PO SCH (21:11)
[2018-01-11] MEDS: ATORVASTATIN 40 MG TABLET PO SCH (21:12)
[2018-01-12] MEDS ORDERED: ALBUTEROL SULFATE 2.5 MG/3 ML NPPB PRN (06:00)
[2018-01-12] MEDS ORDERED: IPRATROPIUM 0.5 MG/2.5 ML INHA NPPB PRN (06:00)
[2018-01-12] MEDS ORDERED: BUDESONIDE 0.5 MG/2 ML INHA NPPB SCH (06:30)
[2018-01-12] MEDS ORDERED: ALBUTEROL/IPRATROPIUM 2.5MG/0.5MG, 3 ML ONE (06:43)
[2018-01-12] MEDS: metFORMIN 500 MG TABLET PO SCH ×2 (09:16→16:58)
[2018-01-12] MEDS: PAROXETINE 20 MG TABLET PO SCH (09:17)
[2018-01-12] MEDS: MULTIVITAMIN 1 TABLET PO SCH (09:17)
[2018-01-12] MEDS: FOLIC ACID 1 MG TABLET PO SCH (09:17)
[2018-01-12] MEDS ORDERED: LISINOPRIL 20 MG TABLET ONE (09:19)
[2018-01-12] MEDS ORDERED: AMLODIPINE 5 MG TABLET ONE (09:19)
[2018-01-12] MEDS ORDERED: METOPROLOL TARTRATE 50 MG TABLET ONE ×2 (09:20→20:35)
[2018-01-12] MEDS ORDERED: RIVAROXABAN 20 MG TABLET ONE (09:20)
[2018-01-12] MEDS: LISINOPRIL 20 MG TABLET PO SCH (09:21)
[2018-01-12] MEDS: METOPROLOL TARTRATE 50 MG TABLET PO SCH ×2 (09:21→20:38)
[2018-01-12] MEDS: AMLODIPINE 5 MG TABLET PO SCH (09:21)
[2018-01-12] MEDS: THIAMINE 100MG TABLET PO SCH (09:22)
[2018-01-12] MEDS: RIVAROXABAN 20 MG TABLET PO SCH (09:22)
[2018-01-12] MEDS ORDERED: ACETAMINOPHEN 325 MG TABLET ONE ×2 (11:55→20:46)
[2018-01-12] MEDS: ACETAMINOPHEN 325 MG TABLET PO PRN ×2 (12:03→20:48)
[2018-01-12] MEDS ORDERED: IPRATROPIUM 0.5 MG/2.5 ML INHA ONE (18:23)
[2018-01-12] MEDS ORDERED: BUDESONIDE 0.5 MG/2 ML INHA ONE (18:23)
[2018-01-12] MEDS: BUDESONIDE 0.5 MG/2 ML INHA NPPB SCH (18:28)
[2018-01-12] MEDS: IPRATROPIUM 0.5 MG/2.5 ML INHA NPPB SCH (18:28)
[2018-01-12] MEDS ORDERED: TRAZODONE 150MG TABLET ONE (20:35)
[2018-01-12] MEDS: TRAZODONE 150MG TABLET PO SCH (20:37)
[2018-01-12] MEDS: MELATONIN 5 MG TABLET PO SCH (20:38)
[2018-01-13] MEDS: IPRATROPIUM 0.5 MG/2.5 ML INHA NPPB SCH ×2 (06:00)
[2018-01-13] MEDS: BUDESONIDE 0.5 MG/2 ML INHA NPPB SCH (06:00)
[2018-01-13] MEDS ORDERED: IPRATROPIUM 0.5 MG/2.5 ML INHA ONE (06:22)
[2018-01-13] MEDS ORDERED: BUDESONIDE 0.5 MG/2 ML INHA ONE (06:22)
[2018-01-13] MEDS ORDERED: LISINOPRIL 20 MG TABLET ONE (08:15)
[2018-01-13] MEDS ORDERED: AMLODIPINE 5 MG TABLET ONE (08:15)
[2018-01-13] MEDS ORDERED: METOPROLOL TARTRATE 25 MG TABLET ONE (09:14)
[2018-01-13] MEDS ORDERED: THIAMINE 100MG TABLET ONE (09:14)
[2018-01-13] MEDS: AMLODIPINE 5 MG TABLET PO SCH (09:17)
[2018-01-13] MEDS: METOPROLOL TARTRATE 50 MG TABLET PO SCH (09:17)
[2018-01-13] MEDS: PAROXETINE 20 MG TABLET PO SCH (09:18)
[2018-01-13] MEDS: THIAMINE 100MG TABLET PO SCH (09:19)
[2018-01-13] MEDS: LISINOPRIL 20 MG TABLET PO SCH (09:19)
[2018-01-13] MEDS: metFORMIN 500 MG TABLET PO SCH (09:25)
[2018-01-13] MEDS: RIVAROXABAN 20 MG TABLET PO SCH (09:26)
[2018-01-13] MEDS: FOLIC ACID 1 MG TABLET PO SCH (09:26)
[2018-01-13] MEDS: MULTIVITAMIN 1 TABLET PO SCH (09:27)
[2018-01-13 11:32] VITALS: BP 138/81
== END 2018-01-13 15:04 | disposition home or self-care (01) ==
LOC: ED 18:44
DX: F10.129 Alcohol abuse with intoxication, unspecified (principal); R45.851 Suicidal ideations; J44.9 Chronic obstructive pulmonary disease, unspecified; E78.5 Hyperlipidemia, unspecified; E11.9 Type 2 diabetes mellitus without complications; I10 Essential (primary) hypertension; I48.91 Unspecified atrial fibrillation; Z90.89 Acquired absence of other organs; Z90.49 Acquired absence of other specified parts of digestive tract; Y90.9 Presence of alcohol in blood, level not specified
CPT/HCPCS: 36415; 80048; 80307; 80329; 82040; 85025; 99285; J7626; J7644; G0480

== ENCOUNTER 2018-02-04 23:03 | Emergency (ER) | payer MEDICAID ==
[~2018-02-04] VITALS: Ht 185.4 cm; Wt 120.0 kg
[~2018-02-04 23:03] MED LIST changes: -CLON0.1T PO; +CLON0.1T22 PO
[2018-02-04 23:05] VITALS: BP 130/89
== END 2018-02-04 23:22 | disposition home or self-care (01) ==
LOC: ED 23:10
DX: G89.29 Other chronic pain (principal); M54.5 Low back pain; E78.5 Hyperlipidemia, unspecified; I48.91 Unspecified atrial fibrillation; E11.65 Type 2 diabetes mellitus with hyperglycemia; I50.9 Heart failure, unspecified; I47.1 Supraventricular tachycardia; I11.0 Hypertensive heart disease with heart failure; J44.9 Chronic obstructive pulmonary disease, unspecified
CPT/HCPCS: 99283

== ENCOUNTER 2018-02-26 17:36 | Emergency (ER) | payer MEDICAID ==
[~2018-02-26] VITALS: Ht 185.4 cm; Wt 125.0 kg
--- NOTE | 2018-02-26 18:00 | NUR ---
Pt's room not completely secured due to need for cardiac monitoring/oxygen. Sitter able to directly visualize pt, SR up x 2, curtain open.
[2018-02-26] MEDS ORDERED: OXYC15TA PO (18:06)
[2018-02-26 18:20] LABS: BASOPHILS # (AUTO) 0.05 x10^3/uL (0-0.1); BASOPHILS % (AUTO) 0 % (0-1); EOSINOPHILS # (AUTO) 0.12 x10^3/uL (0-0.4); EOSINOPHILS % (AUTO) 1 % (1-7); LYMPHOCYTES # (AUTO) 2.44 x10^3/uL (1-3.4); LYMPHOCYTES % (AUTO) 20 % (22-44); MD NO; MEAN CORPUSCULAR HEMOGLOBIN 32.1 pg (27.5-34.5); MEAN CORPUSCULAR VOLUME 91.7 fL (81-97); MEAN PLATELET VOLUME 8.7 fL (7.4-10.4); MONOCYTES # (AUTO) 0.66 x10^3/uL (0.2-0.8); MONOCYTES % (AUTO) 5 % (2-9); NEUTROPHILS # (AUTO) 9.19 x10^3/uL (1.8-6.8); NEUTROPHILS % (AUTO) 74 % (42-75); PLATELET COUNT 265 x10^3/uL (130-400); RED BLOOD COUNT 4.72 x10^6/uL (4.38-5.82); RED CELL DISTRIBUTION WIDTH 15.4 % (9.4-14.8)
[2018-02-26 18:33] LABS: ALBUMIN 3.9 g/dL (3.4-5.0); ANION GAP 13 mmol/L (5-15); CHLORIDE 103 mmol/L (98-107)
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
[2018-02-26 18:39] LABS: ACETAMINOPHEN < 2 mcg/mL (10-30); ALANINE AMINOTRANSFERASE 49 U/L (12-78); ALKALINE PHOSPHATASE 111 U/L (45-117); BILIRUBIN,TOTAL 0.7 mg/dL (0.2-1.0); SALICYLATE LEVEL < 1.7 mg/dL (2.8-20.0)
[2018-02-26 18:50] LABS: TOTAL PROTEIN 7.6 g/dL (6.4-8.2)
--- NOTE | 2018-02-26 18:54 | NUR ---
Pt to CT via [facility] with EMT as sitter.
[2018-02-26] MEDS ORDERED: OMNIPAQUE 350 MG/ML, 100ML BOTTLE ONE (19:07)
[2018-02-26 19:22] LABS: MICROSCOPIC NOT IND
[2018-02-26 19:33] LABS: CULTURE INDICATED? NO
[2018-02-26 19:49] LABS: AMPHETAMINE SCREEN, URINE Negative (Negative); BARBITURATE SCREEN, URINE Negative (Negative); BENZODIAZEPINE SCREEN, URINE Negative (Negative); CANNABINOID SCREEN, URINE Negative (Negative); COCAINE SCREEN, URINE Negative (Negative); METHADONE SCREEN, URINE Negative (Negative); OPIATE SCREEN, URINE Negative (Negative)
--- NOTE | 2018-02-26 20:00 | NUR ---
pt sleeping in nad at this time
[2018-02-26 21:32] VITALS: BP 142/82
[2018-02-27] MEDS ORDERED: LORazepam 2 MG/ML, 1ML ONE (00:28)
[2018-02-27] MEDS: LORazepam 2 MG/ML, 1ML IVPush ONE (00:30)
--- NOTE | 2018-02-27 00:36 | NUR ---
pt br etoh 0.08, spoke with pt and pt is ready to discharge at this time
[2018-02-27] MEDS ORDERED: LORazepam 2 MG/ML, 1ML IVPush ONE (01:00)
== END 2018-02-27 01:04 | disposition home or self-care (01) ==
LOC: ED 18:12
DX: F10.220 Alcohol dependence with intoxication, uncomplicated (principal); R45.851 Suicidal ideations; F32.9 Major depressive disorder, single episode, unspecified; F41.1 Generalized anxiety disorder; J44.9 Chronic obstructive pulmonary disease, unspecified; E11.65 Type 2 diabetes mellitus with hyperglycemia; I11.0 Hypertensive heart disease with heart failure; I50.9 Heart failure, unspecified; I48.91 Unspecified atrial fibrillation; Z72.9 Problem related to lifestyle, unspecified; Z86.19 Personal history of other infectious and parasitic diseases; Z90.49 Acquired absence of other specified parts of digestive tract; Z87.01 Personal history of pneumonia (recurrent); Y90.9 Presence of alcohol in blood, level not specified
CPT/HCPCS: 36415; 71045; 74177; 80053; 80307; 80329; 81003; 85025; 93005; 96374; 99284; J2060; Q9967; G0480

== ENCOUNTER 2018-06-24 16:49 | Emergency (ER) | payer MEDICAID ==
[~2018-06-24] VITALS: Ht 185.4 cm; Wt 120.0 kg
[~2018-06-24 16:49] MED LIST changes: -METR-142 PO; +METR-90 PO; +SENN-177 PO; -SENN1TAB8 PO; -VANC125C2 PO; +VANC125C3 PO
--- NOTE | 2018-06-24 17:12 | NUR ---
PT BIB [facility] AFTER LOOSING HIS OXYGEN. PT IS HERE QUITE OFTEN FOR LOSING HIS OXYGEN. PT A&OX4. PT PLACED IN ROOM AND PLACED ON BP AND CONT. PULSE OXIMETER. ASSESSMENT COMPLETED. CALL LIGHT IN REACH.
--- NOTE | 2018-06-24 17:32 | NUR ---
[facility] [employer] AT BEDSIDE
[2018-06-24 18:09] VITALS: BP 119/67
== END 2018-06-24 18:11 | disposition home or self-care (01) ==
LOC: ED 17:18
DX: R06.00 Dyspnea, unspecified (principal); J44.9 Chronic obstructive pulmonary disease, unspecified; I50.9 Heart failure, unspecified; G20 Parkinson's disease; E11.65 Type 2 diabetes mellitus with hyperglycemia; I48.91 Unspecified atrial fibrillation; E78.5 Hyperlipidemia, unspecified; I11.0 Hypertensive heart disease with heart failure; Z86.19 Personal history of other infectious and parasitic diseases; Z87.891 Personal history of nicotine dependence
CPT/HCPCS: 99283